=== PATIENT | male | born 1965 | race Caucasian/White ===

== ENCOUNTER → 2018-12-20 13:44 | Outpatient (CLI) | payer OTHER, SELFPAY ==
--- NOTE | 2018-12-20 13:47 | DI.RAD.S_ITS ---
PROCEDURE: XR CHEST 2V INDICATIONS: cough TECHNIQUE: 2 views of the chest were acquired. COMPARISON: None. FINDINGS: Surgical changes and devices: None. Lungs and pleura: No pleural effusions or pneumothorax. Mild bilateral perihilar density. Peribronchial cuffing is present. Mediastinum: Mediastinal contours are normal. Heart size is normal. Bones and chest wall: No suspicious bony abnormalities. Soft tissues appear unremarkable. IMPRESSION: Mild atypical bronchopneumonia. Dictated by: Gabriel Richardson M.D. on 12/20/2018 at 14:13 Approved by: Gabriel Richardson M.D. on 12/20/2018 at 14:14
== END ==
PROVIDERS: PCP Physician Assistant; Visit Provider Physician Assistant
DX: R05 Cough (principal); J18.0 Bronchopneumonia, unspecified organism
CPT/HCPCS: 71046

== ENCOUNTER 2019-07-24 08:30 | Emergency (ER) | payer SELFPAY ==
[2019-07-24 08:33] VITALS: BP 164/82; PULSE 88; RESP 16; TEMP 37.1; O2SAT 94; BMI 30.3
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
[2019-07-24] MEDS: KETOROLAC 60 MG/2 ML VIAL IM (08:51)
[2019-07-24 10:14] VITALS: BP 154/96; PULSE 76; RESP 16; O2SAT 95
== END 2019-07-24 10:15 | disposition home or self-care (01) ==
PROVIDERS: Emergency Provider Emergency Medicine; PCP Family Medicine
DX: M25.561 Pain in right knee (principal); M25.461 Effusion, right knee
CPT/HCPCS: 73562; 96372; 99282; 99283; J1885

== ENCOUNTER 2019-12-05 18:14 | Emergency (ER) | payer OTHER, MEDICAID, SELFPAY ==
[2019-12-05 18:20] VITALS: BP 150/100; PULSE 85; RESP 14; TEMP 36.2; O2SAT 93
[2019-12-05 18:36] LABS: Add Manual Diff / Slide Review NO; Basophils Absolute Auto 0 /uL (0-100); Basophils Percent Auto 0.7 % (0-2); Eosinophils Absolute Auto 0 /uL (0-450); Eosinophils Percent Auto 0.5 % (2-4); Hematocrit 46.1 % (41-53); Hemoglobin 16.1 g/dL (13.5-17.5); Lymphocytes Absolute Auto 1600 /uL (1100-4500); Lymphocytes Percent Auto 36.3 % (25-40); Mean Corpuscular HGB Conc 34.9 % (30-36); Mean Corpuscular Hemoglobin 36.2 PG (26-34); Mean Corpuscular Volume 103.9 fL (80-100); Monocytes Absolute Auto 500 /uL (0-900); Monocytes Percent Auto 10.6 % (3-14); Neutrophils Absolute Auto 2300 /uL (1500-7000); Neutrophils Percent Auto 51.9 % (50-75); Platelet Count 119 X10^3/uL (150-400); Red Blood Cell Count 4.44 X10^6/uL (4.5-5.9); Red Cell Distribution Width 13.5 % (11.6-14.8); White Blood Cell Count 4.5 X10^3/uL (4.5-11.0)
[2019-12-05] MEDS: SODIUM CHLORIDE 0.9% 1,000 ML 1000 ML IV (18:40)
[2019-12-05 18:43] LABS: Prothrombin Time 11.6 SECONDS (10.1-12.7)
[2019-12-05 18:46] LABS: PTT Partial Thromboplastin Tim 32 SECONDS (26.4-36.2)
[2019-12-05 18:47] LABS: Alanine Aminotransferase 103 IU/L (<50); Albumin 4.7 g/dL (3.5-5.0); Albumin Globulin Ratio 1.3 (1.0-2.8); Alkaline Phosphatase 102 U/L (38-126); Aspartate Aminotransferase 127 IU/L (17-59); BUN Creatinine Ratio 7.1 (6-22); Bilirubin Total 0.8 mg/dL (0.2-1.3); Blood Urea Nitrogen 5 mg/dL (9-20); Calcium 9.1 mg/dL (8.4-10.2); Carbon Dioxide 29 mmol/L (22-32); Chloride 100 mmol/L (98-107); Estimated Glomerular Filt Rate > 60.0 mL/min (>60); Globulin 3.7 g/dL (1.7-4.1); Glucose 115 mg/dL (70-100); HEMOLYSIS < 15 (0-50); Lipase 591 U/L (23-300); Potassium 3.7 mmol/L (3.4-5.1); Sodium 141 mmol/L (137-145); Total Protein 8.4 g/dL (6.3-8.2)
[2019-12-05 18:53] LABS: Ethanol (ETOH) 353 mg/dL
[2019-12-05 19:31] VITALS: BP 131/84; PULSE 83; RESP 18; O2SAT 92
--- NOTE | 2019-12-05 19:46 | ED.BACK ---
HPI - Back Pain/Injury General Chief Complaint: Back Pain/Injury Stated Complaint: dont feel right, L butt cheek pain Time Seen by Provider: 12/05/19 18:29 Source: patient Mode of arrival: Ambulatory Limitations: no limitations History of Present Illness HPI Narrative: Patient is a 54-year-old here with multiple medical complaints. He is a known alcoholic. Drinks on a daily basis for the past several months. Has never had any withdrawals from alcohol in the past. His last drink was approximately 20 minutes prior to arrival here in the emergency department. He arrives with family. Initial nursing report states that the patient was here for detox but was also complaining about back pain and urinary symptoms and bowel symptoms. He is also complaining about dental pain. Upon my evaluation he has multiple complaints. He states he thought that he had ?toxic shock syndrome ?secondary to a toothpick that is stuck in his teeth. Has had dental pain and right-sided facial pain for several days/week now. He also had several falls several weeks ago. For about 2 weeks afterwards he had left lower back pain. States that he has had some urinary symptoms and some urinary hesitancy. He states that this has been going on for several ?years? now. He also states that shortly after the fall he had episodes of diarrhea but then seems of been constipated since then. Generally generally overall does not feel well. Related Data Home Medications Medication Instructions Recorded Confirmed ASPIRIN (Aspirin EC) 81 mg PO #0 06/10/11 02/28/19 Ascorbic Acid/Bioflavonoid #0 06/10/11 02/28/19 (#VITAMIN C) Fish Oil (#FISH OIL) #0 06/10/11 02/28/19 [ZINC] #0 06/10/11 02/28/19 Pyridoxine (#VITAMIN B6) 100 mg PO #0 06/28/12 02/28/19 [sleep aide-OTC] #0 04/25/17 02/28/19 milk thistle 150 mg capsule 150 mg PO BID 02/28/19 02/28/19 Previous Rx's Medication Instructions Recorded lisinopril 20 mg tablet 20 mg PO DAILY #30 tab 02/28/19 clindamycin HCl 300 mg PO QID 10 Days #40 cap 12/05/19 Allergies Allergy/AdvReac Type Severity Reaction Status Date / Time Penicillins [PENICILLINS] Allergy Unknown Verified 12/05/19 18:28 Review of Systems Constitutional Constitutional: Denies fatigue, Denies fever(s), Denies frequent falls, Denies headache(s) and Reports poor appetite ENT Ears, Nose, Mouth, and Throat: Reports dental pain, Reports facial pain, Denies headache(s) and Denies tinnitus Cardiovascular Cardiovascular: Denies chest pain and Denies dyspnea Respiratory Respiratory: Denies dyspnea Gastrointestinal Gastrointestinal: Reports abdominal pain, Reports constipation, Denies nausea and Denies vomiting Genitourinary Genitourinary: Denies genital pain, Denies dysuria, Denies urinary frequency, Reports urinary hesitancy and Denies urinary incontinence Musculoskeletal Musculoskeletal: Reports back pain Integumentary/Breasts Skin/Breast: Denies lesions and Denies rash Neurologic Neurologic: Denies behavioral changes, Denies frequent falls and Denies headache(s) Psychiatric Psychiatric: Denies behavioral changes Comments: Alcohol intoxication Endocrine Endocrine: Denies fatigue Hematologic/Lymphatic Hematologic/Lymphatic: Denies easy bleeding and Denies easy bruising Allergic/Immunologic Allergic/Immunologic: Denies urticaria Patient History Medical History Headache (Chronic) Hearing loss (Chronic) Hepatitis C (Acute) Vision disorder (Chronic) Family History (Updated 04/14/19 @ 22:26 by Qian Orr) Father History of heart disease Mother Cancer Social History Smoking Status: Current every day smoker Tobacco: How many years used: 39 alcohol intake: current (approx 21 drinks per week) substance use type: marijuana Smoking Status: Current every day smoker alcohol intake frequency: 3 or more drinks per day Alcohol type: hard liquor Substance Use Type: marijuana Exam Initial Vital Signs Initial Vital Signs: Vital Signs Temperature 97.1 F L 12/05/19 18:20 Pulse Rate 85 12/05/19 18:20 Respiratory Rate 14 12/05/19 18:20 Blood Pressure 150/100 H 12/05/19 18:20 Pulse Oximetry 93 12/05/19 18:20 Const General: cooperative and well developed Nutritional Appearance: average body habitus HENMT Head: normal to inspection and normocephalic Ears: TM's normal bilaterally Nose: external nose normal Teeth and gingiva: gingiva abnormal (Redness to the gingiva the right upper gum.) and poor dentition Throat: posterior oropharynx normal Resp Effort & Inspection: normal respiratory effort Auscultation: clear to auscultation bilaterally Cardio Rate: regular rate Rhythm: regular rhythm GI Inspection: non-distended Palpation: soft Back/Spine/Pelvis Thoracic/Lumbar Spine: paraspinal tenderness (Left lumbar) and No lumbar spinal tenderness Sacroiliac Joints: nontender Skin Lesions: no lesions Rashes: no rashes Neuro General: alert, awake and oriented x3 Cognition: normal cognition Speech: speech normal Motor: muscle tone normal throughout Sensory Exam: no sensory deficits noted Extrem General: normal to inspection and capillary refill normal Psych Appearance: grossly normal and well kempt Scores GCS [place] coma scale eye opening: Spontaneous Liza coma scale verbal response: Orientated Liza coma scale motor response: Obey commands Liza coma scale total score: 15 Course Orders Ordered: ED Orders 12/05/19 18:27 Complete Blood Count AUTO DIFF Stat Comprehensive Metabolic Panel Stat Ethanol (ETOH) Stat Lipase Stat Partial Thromboplastin Time Stat Prothrombin Time INR Stat 12/05/19 18:30 EKG-12 Lead Stat Discontinued Medications Clindamycin HCl (Cleocin) 300 mg PO NOW ONE Stop: 12/05/19 19:47 Last Admin: 12/05/19 19:58 Dose: 300 mg Documented by: NINO Sodium Chloride (Normal Saline 0.9%) 1,000 mls @ 1,000 mls/hr IV BOLUS ONE Stop: 12/05/19 19:28 Last Infusion: 12/05/19 20:55 Dose: 0 mls/hr Documented by: Admin: 12/05/19 18:40 Dose: 1,000 mls/hr Documented by: NINO Vital Signs Vital signs: Vital Signs - 8 hr 12/05/19 18:20 12/05/19 19:31 12/05/19 20:15 Temperature 97.1 F L Pulse Rate 85 83 91 H Respiratory Rate 14 18 18 Blood Pressure 150/100 H Blood Pressure [Left Arm] 131/84 137/79 Pulse Oximetry 93 92 12/05/19 20:56 Temperature Pulse Rate 63 Respiratory Rate 14 Blood Pressure Blood Pressure [Left Arm] 138/74 Pulse Oximetry 98 MDM - Back Pain/Injury Lab Data Attestation: I reviewed the patient's lab results. Result diagrams: 12/05/19 18:27 12/05/19 18:27 Labs: Lab Results 12/05/19 12/05/19 12/05/19 Range/Units 18:27 18:27 18:27 WBC 4.5 (4.5-11.0) X10^3/uL RBC 4.44 L (4.5-5.9) X10^6/uL Hgb 16.1 (13.5-17.5) g/dL Hct 46.1 (41-53) % MCV 103.9 H (80-100) fL MCH 36.2 H (26-34) PG MCHC 34.9 (30-36) % RDW 13.5 (11.6-14.8) % Plt Count 119 L (150-400) X10^3/uL Neut % (Auto) 51.9 (50-75) % Lymph % (Auto) 36.3 (25-40) % [place] % (Auto) 10.6 (3-14) % Eos % (Auto) 0.5 L (2-4) % Baso % (Auto) 0.7 (0-2) % Neut # (Auto) 2300 (8255-1280) /uL Lymph # (Auto) 1600 (4419-5155) /uL [place] # (Auto) 500 (0-900) /uL Eos # (Auto) 0 (0-450) /uL Baso # (Auto) 0 (0-100) /uL PT 11.6 (10.1-12.7) SECONDS INR 1.0 (0.9-1.3) APTT 32 (26.4-36.2) SECONDS Sodium 141 (137-145) mmol/L Potassium 3.7 (3.4-5.1) mmol/L Chloride 100 (98-107) mmol/L Carbon Dioxide 29 (22-32) mmol/L BUN 5 L (9-20) mg/dL Creatinine 0.70 (0.66-1.25) mg/dL Estimated GFR > 60.0 (>60) mL/min BUN/Creatinine Ratio 7.1 (6-22) Glucose 115 H (70-100) mg/dL Calcium 9.1 (8.4-10.2) mg/dL Total Bilirubin 0.8 (0.2-1.3) mg/dL AST 127 H (17-59) IU/L ALT 103 H (<50) IU/L Alkaline Phosphatase 102 (38-126) U/L Total Protein 8.4 H (6.3-8.2) g/dL Albumin 4.7 (3.5-5.0) g/dL Globulin 3.7 (1.7-4.1) g/dL Albumin/Globulin Ratio 1.3 (1.0-2.8) Lipase 591 H (23-300) U/L Ethyl Alcohol ( - 10) mg/dL 12/05/19 Range/Units 18:27 WBC (4.5-11.0) X10^3/uL RBC (4.5-5.9) X10^6/uL Hgb (13.5-17.5) g/dL Hct (41-53) % MCV (80-100) fL MCH (26-34) PG MCHC (30-36) % RDW (11.6-14.8) % Plt Count (150-400) X10^3/uL Neut % (Auto) (50-75) % Lymph % (Auto) (25-40) % [place] % (Auto) (3-14) % Eos % (Auto) (2-4) % Baso % (Auto) (0-2) % Neut # (Auto) (9148-0954) /uL Lymph # (Auto) (6856-0697) /uL [place] # (Auto) (0-900) /uL Eos # (Auto) (0-450) /uL Baso # (Auto) (0-100) /uL PT (10.1-12.7) SECONDS INR (0.9-1.3) APTT (26.4-36.2) SECONDS Sodium (137-145) mmol/L Potassium (3.4-5.1) mmol/L Chloride (98-107) mmol/L Carbon Dioxide (22-32) mmol/L BUN (9-20) mg/dL Creatinine (0.66-1.25) mg/dL Estimated GFR (>60) mL/min BUN/Creatinine Ratio (6-22) Glucose (70-100) mg/dL Calcium (8.4-10.2) mg/dL Total Bilirubin (0.2-1.3) mg/dL AST (17-59) IU/L ALT (<50) IU/L Alkaline Phosphatase (38-126) U/L Total Protein (6.3-8.2) g/dL Albumin (3.5-5.0) g/dL Globulin (1.7-4.1) g/dL Albumin/Globulin Ratio (1.0-2.8) Lipase (23-300) U/L Ethyl Alcohol 353 H ( - 10) mg/dL Urine Dip Bedside Urine Glucose Negative Bedside Urine Bilirubin - Negative Bedside Urine Ketone - Negative Bedside Urine Occult Blood - Negative Bedside Urine Protein - Negative Bedside Urine Urobilinogen - Negative Bedside Urine Nitrite - Negative Bedside Urine Leukocytes - Negative Esterase MDM Narrative Medical decision making narrative: Patient's labs do show an elevated LFTs but I suspect this is secondary to his alcohol abuse. His alcohol level was also elevated. Lipase was slightly elevated but his history and physical is not consistent with pancreatitis. No fevers. He does have left sided lumbar muscular tenderness. Low suspicion for cauda equina. He does have redness to the gingiva in the gums the right upper gum. There's no foreign body noted in this area. No drainable abscess. He was given a dose of antibiotics here in the emergency department and was sent home with a prescription for antibiotics. Had a long discussion with him and his sister at bedside regarding his alcohol use. I did offer treatment. Reported by nursing that he was initially agreeable to treatment then later stated that he was not ready for this. He was informed that he cannot drive. He was informed that he should see a dentist regarding his dental issues. We did discuss return precautions and follow-up instructions. No further workup required here in the emergency department. Patient and his sister expressed understanding and agreement. Discharge Plan Departure Patient Disposition: Home Clinical Impression: Dental infection Strain of lumbar region Qualifiers: Encounter type: initial encounter Qualified Code(s): S39.012A - Strain of muscle, fascia and tendon of lower back, initial encounter Alcohol intoxication Qualifiers: Complication of substance-induced condition: uncomplicated Qualified Code(s): F10.920 - Alcohol use, unspecified with intoxication, uncomplicated Discharge Date/Time: 12/05/19 21:03 Instructions: Alcohol Use Disorder Activity Restrictions/Additional Instructions: Continue all of your medications as directed. Recommend you contact your primary provider for a follow-up. If you do not have a primary provider you can contact the health human resources analyst here at the hospital at [phone]. Take the antibiotics as directed. No driving for the next 24 hours or in the future if you drink alcohol. Return to the emergency department for any new or worsening symptoms Prescriptions: New clindamycin HCl 300 mg capsule 300 mg PO QID 10 Days Qty: 40 RF: 0 No Action milk thistle 150 mg capsule 150 mg PO BID RF: 0 lisinopril 20 mg tablet 20 mg PO DAILY Qty: 30 RF: 1 Ascorbic Acid/Bioflavonoid (#VITAMIN C) Qty: 0 RF: 0 Fish Oil (#FISH OIL) Qty: 0 RF: 0 [ZINC] Qty: 0 RF: 0 ASPIRIN (Aspirin EC) 81 mg PO Qty: 0 RF: 0 Pyridoxine (#VITAMIN B6) 100 mg PO Qty: 0 RF: 0 [sleep aide-OTC] Qty: 0 RF: 0 Referrals: Megha Bagley DO [Primary Care Provider] -
[2019-12-05] MEDS: CLINDAMYCIN 150 MG CAPSULE 300 MG PO (19:58)
[2019-12-05 20:15] VITALS: BP 137/79; PULSE 91; RESP 18
[2019-12-05 20:56] VITALS: BP 138/74; PULSE 63; RESP 14; O2SAT 98
== END 2019-12-05 21:03 | disposition home or self-care (01) ==
PROVIDERS: Emergency Provider Emergency Medicine; PCP Family Medicine
DX: S39.012A Strain of muscle, fascia and tendon of lower back, initial encounter (principal); F10.920 Alcohol use, unspecified with intoxication, uncomplicated; K04.7 Periapical abscess without sinus; W19.XXXA Unspecified fall, initial encounter
CPT/HCPCS: 36415; 80053; 80320; 81003; 83690; 85025; 85610; 85730; 93005; 96360; 96361; 99284

== ENCOUNTER 2019-12-11 12:28 | Emergency (ER) | payer OTHER, MEDICAID, SELFPAY ==
[2019-12-11] VITALS (9 sets, daily range): BP systolic 133–158; BP diastolic 64–91; PULSE 81–99; RESP 14–19; TEMP 36.5; O2SAT 94–98; BMI 29.0
--- NOTE | 2019-12-11 12:45 | DI.CT.S_ITS ---
PROCEDURE: CT ANGIO CHEST PE PROTOCOL INDICATIONS: Hemoptysis TECHNIQUE: After the administration of intravenous contrast, 2 mm thick sections acquired from the pulmonary apices to the posterior costophrenic angles. 3-dimensional maximum intensity projection (MIP) coronal and sagittal reformats were then acquired through the thorax. For radiation dose reduction, the following was used: automated exposure control, adjustment of mA and/or kV according to patient size. COMPARISON: [facility], CT, CT ABDOMEN PELVIS W CON, 12/11/2019, 12:48. [facility], CR, XR CHEST 2V, 12/20/2018, 13:47. FINDINGS: Image quality: Excellent. Pulmonary arteries: Pulmonary arteries are normal in size, and demonstrate no intraluminal filling defects to suggest central pulmonary embolism. Lungs and pleura: Lungs are clear. No pleural effusions or pneumothorax. Central and peripheral airways are patent. Mediastinum: Heart size is normal, without pericardial effusion. No mediastinal or hilar adenopathy. Thoracic aorta is normal in caliber and enhancement. Esophagus is normal in caliber. There is a small hiatal hernia. There is concentric thickening of the distal esophagus. Bones and chest wall: No suspicious bony lesions. Ribs and thoracic spine appear intact throughout. Thyroid gland is normal. No axillary or supraclavicular adenopathy. Abdomen: Nodular contour of liver consistent with cirrhosis. Severe hepatic steatosis. Large venous collaterals are seen in the left upper abdomen. IMPRESSION: 1. No findings to suggest pulmonary embolism. 2. Small hiatal hernia. There is concentric thickening of the distal esophagus. Esophageal varices are present. 3. Cirrhosis and portal hypertension. The result was discussed with Dr. Marie. Dictated by: Asher Robles M.D. on 12/11/2019 at 13:36 Approved by: Asher Roblse M.D. on 12/11/2019 at 13:44
--- NOTE | 2019-12-11 12:51 | ED_ITS ---
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 He is sent from his PCP office today for hematemesis. Although there is question of perhaps hematemesis. Patient says that his he has had a cough ongoing for about a week or so. Any started having some hemoptysis last night. It has only been speckled no large amounts. And again he coughed at the doctor's office. He denies any chest discomfort or shortness of breath. He also states that he is having some epigastric discomfort along with black stools. MD complaint: abdominal pain Related Data Previous Rx's Medication Instructions Recorded clindamycin HCl 300 mg PO QID 10 Days #40 cap 12/05/19 Allergies Allergy/AdvReac Type Severity Reaction Status Date / Time Penicillins [PENICILLINS] Allergy Unknown Verified 12/11/19 12:47 Review of Systems Review of Systems ROS Unobtainable: All systems reviewed & are unremarkable except as noted in HPI and below Constitutional Constitutional: Denies chills, Denies fever(s), Denies lethargy and Denies weakness Eyes Eyes: Denies change in vision, Denies eye discharge, Denies irritation and Denies loss of vision ENT Ears, Nose, Mouth, and Throat: Denies change in voice, Denies neck pain and Denies sore throat Cardiovascular Cardiovascular: Denies chest pain, Denies irregular heart rhythm, Denies lightheadedness, Denies palpitations and Denies orthopnea Respiratory Respiratory: Reports as per HPI and Reports hemoptysis Gastrointestinal Gastrointestinal: Reports abdominal pain (mild epigastric), Reports change in bowel habits (some black bowels), Denies diarrhea, Denies nausea and Denies vomiting Genitourinary Genitourinary: Denies hematuria, Denies flank pain, Denies urinary incontinence and Denies urinary urgency Musculoskeletal Musculoskeletal: Denies neck pain Integumentary/Breasts Skin/Breast: Denies pruritus, Denies erythema, Denies rash and Denies wounds Neurologic Neurologic: Denies loss of vision and Denies weakness Endocrine Endocrine: Denies palpitations Patient History Medical History Headache (Chronic) Hearing loss (Chronic) Hepatitis C (Acute) Vision disorder (Chronic) Surgical History Hiatal hernia (Resolved) Periumbilical hernia (Resolved) Family History Father History of heart disease Mother Cancer Social History Smoking Status: Current every day smoker Tobacco: How many years used: 39 alcohol intake: current (approx 21 drinks per week) substance use type: marijuana Smoking Status: Current every day smoker alcohol intake frequency: 3 or more drinks per day Alcohol type: beer and hard liquor Substance Use Type: marijuana Exam Initial Vital Signs Initial Vital Signs: Vital Signs Temperature 97.7 F 12/11/19 12:28 Pulse Rate 83 12/11/19 12:28 Respiratory Rate 18 12/11/19 12:28 Blood Pressure 153/90 H 12/11/19 12:28 Pulse Oximetry 96 12/11/19 12:28 GENERAL: Alert multiple tattoos well-appearing male and in no acute distress. HEENT: Head atraumatic,EOMI, pupils reactive, face symmetric, moist mucous membranes CARDIOVASCULAR: Regular rate and rhythm without murmurs, rubs or gallops. RESPIRATORY: Breath sounds equal bilaterally, no wheezes rales or rhonchi. ABDOMEN: Soft, nontender. Normoactive bowel sounds all 4 quadrants. No guarding or rebound. RECTAL: No stool EXTREMITIES: Normal range of motion, no clubbing or edema. Neurovascularly intact NEUROLOGICAL: Alert and oriented x4.Normal gait and speech. Cranial nerves II through XII grossly intact. SKIN: Warm, dry, no laceration, no petechiae, no rashes or lesions. Course Orders Ordered: ED Orders 12/11/19 12:40 Acetaminophen Stat Complete Blood Count AUTO DIFF Stat Comprehensive Metabolic Panel Stat Ethanol (ETOH) Stat Lipase Stat Partial Thromboplastin Time Stat Prothrombin Time INR Stat Troponin & CK Cardiac Panel Stat Type and Screen Stat 12/11/19 12:45 CT angio chest PE protocol Stat 12/11/19 12:47 EKG-12 Lead Stat 12/11/19 13:14 CT abdomen pelvis w con Stat 12/11/19 13:15 Urine Drug Screen, Rapid Stat Pantoprazole Sodium 80 mg/ (Sodium Chloride) 100 mls @ 10 mls/hr IV CONT ILYA Last Admin: 12/11/19 14:47 Dose: 8 mg/hr, 10 mls/hr Documented by: PANCHO Octreotide Acetate 500 mcg/ (Sodium Chloride) 101 mls @ 10.1 mls/hr IV CONT ILYA; Protocol Last Admin: 12/11/19 14:48 Dose: 50 mcg/hr, 10.1 mls/hr Documented by: PANCHO Discontinued Medications Lorazepam (Ativan) 2 mg IV NOW ONE Stop: 12/11/19 17:03 Last Admin: 12/11/19 17:26 Dose: 2 mg Documented by: MARKY Octreotide Acetate (Sandostatin) 50 mcg IV NOW ONE Stop: 12/11/19 13:41 Last Admin: 12/11/19 14:14 Dose: 50 mcg Documented by: PANCHO Ondansetron HCl (Zofran) 4 mg IV NOW ONE Stop: 12/11/19 14:25 Last Admin: 12/11/19 14:26 Dose: 4 mg Documented by: PANCHO Pantoprazole Sodium (Protonix) 40 mg IV NOW ONE Stop: 12/11/19 13:41 Last Admin: 12/11/19 14:13 Dose: 40 mg Documented by: PANCHO Vital Signs Vital signs: Vital Signs - 8 hr 12/11/19 12:28 12/11/19 13:00 12/11/19 13:30 Temperature 97.7 F Pulse Rate 83 81 83 Respiratory Rate 18 19 16 Blood Pressure 153/90 H Blood Pressure [Left Arm] 147/89 H 149/90 H Pulse Oximetry 96 97 96 12/11/19 14:15 12/11/19 14:34 12/11/19 15:06 Temperature Pulse Rate 83 82 94 H Respiratory Rate 15 18 18 Blood Pressure Blood Pressure [Left Arm] 133/71 133/91 H 139/77 Pulse Oximetry 97 96 98 12/11/19 15:33 12/11/19 17:00 12/11/19 17:30 Temperature Pulse Rate 99 H 92 H 93 H Respiratory Rate 14 18 19 Blood Pressure Blood Pressure [Left Arm] 137/64 141/77 H 158/89 H Pulse Oximetry 97 94 94 MDM - Abdominal Pain Lab Data Attestation: I reviewed the patient's lab results. Result diagrams: 12/11/19 12:40 12/11/19 12:40 Labs: Lab Results 12/11/19 12/11/19 12/11/19 Range/Units 12:40 12:40 12:40 WBC 3.5 L (4.5-11.0) X10^3/uL RBC 4.26 L (4.5-5.9) X10^6/uL Hgb 15.2 (13.5-17.5) g/dL Hct 43.8 (41-53) % MCV 102.9 H (80-100) fL MCH 35.6 H (26-34) PG MCHC 34.6 (30-36) % RDW 13.7 (11.6-14.8) % Plt Count 92 L (150-400) X10^3/uL Neut % (Auto) 64.2 (50-75) % Lymph % (Auto) 25.6 (25-40) % [place] % (Auto) 9.5 (3-14) % Eos % (Auto) 0.1 L (2-4) % Baso % (Auto) 0.6 (0-2) % Neut # (Auto) 2300 (7603-6459) /uL Lymph # (Auto) 900 L (1382-1991) /uL [place] # (Auto) 300 (0-900) /uL Eos # (Auto) 0 (0-450) /uL Baso # (Auto) 0 (0-100) /uL PT 12.1 (10.1-12.7) SECONDS INR 1.0 (0.9-1.3) APTT 32 (26.4-36.2) SECONDS Sodium 139 (137-145) mmol/L Potassium 3.4 (3.4-5.1) mmol/L Chloride 100 (98-107) mmol/L Carbon Dioxide 26 (22-32) mmol/L BUN 5 L (9-20) mg/dL Creatinine 0.70 (0.66-1.25) mg/dL Estimated GFR > 60.0 (>60) mL/min BUN/Creatinine Ratio 7.1 (6-22) Glucose 113 H (70-100) mg/dL Calcium 9.3 (8.4-10.2) mg/dL Total Bilirubin 1.0 (0.2-1.3) mg/dL AST 253 H (17-59) IU/L ALT 154 H (<50) IU/L Alkaline Phosphatase 110 (38-126) U/L Total Creatine Kinase 161 (55-170) U/L CK-MB (CK-2) 2.10 (<2.37) ng/mL CK-MB (CK-2) Rel Index 1.3 L (1.5-5.0) % Troponin I 0.031 (0.01-0.034) ng/mL Total Protein 8.5 H (6.3-8.2) g/dL Albumin 4.6 (3.5-5.0) g/dL Globulin 3.9 (1.7-4.1) g/dL Albumin/Globulin Ratio 1.2 (1.0-2.8) Lipase 608 H (23-300) U/L U Opiates 300ng/mL cut (Negative) Ur Oxycodone Screen (Negative) Urine Methadone Screen (Negative) Acetaminophen (10-30) ug/mL Ur Barbiturates Screen (Negative) U Tricyclic Antidepress (Negative) Ur Phencyclidine Scrn (Negative) Ur Amphetamines Screen (Negative) U Methamphetamines Scrn (Negative) Ur MDMA Scrn (Ecstasy) (Negative) U Benzodiazepines Scrn (Negative) Urine Cocaine Screen (Negative) U Marijuana (THC) Screen (Negative) Ethyl Alcohol ( - 10) mg/dL Blood Type Antibody Screen 12/11/19 12/11/19 12/11/19 Range/Units 12:40 12:40 12:54 WBC (4.5-11.0) X10^3/uL RBC (4.5-5.9) X10^6/uL Hgb (13.5-17.5) g/dL Hct (41-53) % MCV (80-100) fL MCH (26-34) PG MCHC (30-36) % RDW (11.6-14.8) % Plt Count (150-400) X10^3/uL Neut % (Auto) (50-75) % Lymph % (Auto) (25-40) % [place] % (Auto) (3-14) % Eos % (Auto) (2-4) % Baso % (Auto) (0-2) % Neut # (Auto) (2260-9907) /uL Lymph # (Auto) (9556-5577) /uL [place] # (Auto) (0-900) /uL Eos # (Auto) (0-450) /uL Baso # (Auto) (0-100) /uL PT (10.1-12.7) SECONDS INR (0.9-1.3) APTT (26.4-36.2) SECONDS Sodium (137-145) mmol/L Potassium (3.4-5.1) mmol/L Chloride (98-107) mmol/L Carbon Dioxide (22-32) mmol/L BUN (9-20) mg/dL Creatinine (0.66-1.25) mg/dL Estimated GFR (>60) mL/min BUN/Creatinine Ratio (6-22) Glucose (70-100) mg/dL Calcium (8.4-10.2) mg/dL Total Bilirubin (0.2-1.3) mg/dL AST (17-59) IU/L ALT (<50) IU/L Alkaline Phosphatase (38-126) U/L Total Creatine Kinase Cancelled (55-170) U/L CK-MB (CK-2) Cancelled (<2.37) ng/mL CK-MB (CK-2) Rel Index Cancelled (1.5-5.0) % Troponin I Cancelled (0.01-0.034) ng/mL Total Protein (6.3-8.2) g/dL Albumin (3.5-5.0) g/dL Globulin (1.7-4.1) g/dL Albumin/Globulin Ratio (1.0-2.8) Lipase (23-300) U/L U Opiates 300ng/mL cut (Negative) Ur Oxycodone Screen (Negative) Urine Methadone Screen (Negative) Acetaminophen < 10 L (10-30) ug/mL Ur Barbiturates Screen (Negative) U Tricyclic Antidepress (Negative) Ur Phencyclidine Scrn (Negative) Ur Amphetamines Screen (Negative) U Methamphetamines Scrn (Negative) Ur MDMA Scrn (Ecstasy) (Negative) U Benzodiazepines Scrn (Negative) Urine Cocaine Screen (Negative) U Marijuana (THC) Screen (Negative) Ethyl Alcohol 266 H ( - 10) mg/dL Blood Type A Positive Antibody Screen Negative 12/11/19 Range/Units 13:15 WBC (4.5-11.0) X10^3/uL RBC (4.5-5.9) X10^6/uL Hgb (13.5-17.5) g/dL Hct (41-53) % MCV (80-100) fL MCH (26-34) PG MCHC (30-36) % RDW (11.6-14.8) % Plt Count (150-400) X10^3/uL Neut % (Auto) (50-75) % Lymph % (Auto) (25-40) % [place] % (Auto) (3-14) % Eos % (Auto) (2-4) % Baso % (Auto) (0-2) % Neut # (Auto) (4659-9731) /uL Lymph # (Auto) (9951-8749) /uL [place] # (Auto) (0-900) /uL Eos # (Auto) (0-450) /uL Baso # (Auto) (0-100) /uL PT (10.1-12.7) SECONDS INR (0.9-1.3) APTT (26.4-36.2) SECONDS Sodium (137-145) mmol/L Potassium (3.4-5.1) mmol/L Chloride (98-107) mmol/L Carbon Dioxide (22-32) mmol/L BUN (9-20) mg/dL Creatinine (0.66-1.25) mg/dL Estimated GFR (>60) mL/min BUN/Creatinine Ratio (6-22) Glucose (70-100) mg/dL Calcium (8.4-10.2) mg/dL Total Bilirubin (0.2-1.3) mg/dL AST (17-59) IU/L ALT (<50) IU/L Alkaline Phosphatase (38-126) U/L Total Creatine Kinase (55-170) U/L CK-MB (CK-2) (<2.37) ng/mL CK-MB (CK-2) Rel Index (1.5-5.0) % Troponin I (0.01-0.034) ng/mL Total Protein (6.3-8.2) g/dL Albumin (3.5-5.0) g/dL Globulin (1.7-4.1) g/dL Albumin/Globulin Ratio (1.0-2.8) Lipase (23-300) U/L U Opiates 300ng/mL cut Negative (Negative) Ur Oxycodone Screen Positive H (Negative) Urine Methadone Screen Negative (Negative) Acetaminophen (10-30) ug/mL Ur Barbiturates Screen Negative (Negative) U Tricyclic Antidepress Negative (Negative) Ur Phencyclidine Scrn Negative (Negative) Ur Amphetamines Screen Negative (Negative) U Methamphetamines Scrn Negative (Negative) Ur MDMA Scrn (Ecstasy) Negative (Negative) U Benzodiazepines Scrn Negative (Negative) Urine Cocaine Screen Negative (Negative) U Marijuana (THC) Screen Positive H (Negative) Ethyl Alcohol ( - 10) mg/dL Blood Type Antibody Screen Imaging Data CT scan - chest: Radiologist's Impression: PROCEDURE: CT ANGIO CHEST PE PROTOCOL INDICATIONS: Hemoptysis TECHNIQUE: After the administration of intravenous contrast, 2 mm thick sections acquired from the pulmonary apices to the posterior costophrenic angles. 3-dimensional maximum intensity projection (MIP) coronal and sagittal reformats were then acquired through the thorax. For radiation dose reduction, the following was used: automated exposure control, adjustment of mA and/or kV according to patient size. COMPARISON: [facility], CT, CT ABDOMEN PELVIS W CON, 12/11/2019, 12:48. [facility], CR, XR CHEST 2V, 12/20/2018, 13:47. FINDINGS: Image quality: Excellent. Pulmonary arteries: Pulmonary arteries are normal in size, and demonstrate no intraluminal filling defects to suggest central pulmonary embolism. Lungs and pleura: Lungs are clear. No pleural effusions or pneumothorax. Central and peripheral airways are patent. Mediastinum: Heart size is normal, without pericardial effusion. No mediastinal or hilar adenopathy. Thoracic aorta is normal in caliber and enhancement. Esophagus is normal in caliber. There is a small hiatal hernia. There is concentric thickening of the distal esophagus. Bones and chest wall: No suspicious bony lesions. Ribs and thoracic spine appear intact throughout. Thyroid gland is normal. No axillary or supraclavicular adenopathy. Abdomen: Nodular contour of liver consistent with cirrhosis. Severe hepatic steatosis. Large venous collaterals are seen in the left upper abdomen. IMPRESSION: 1. No findings to suggest pulmonary embolism. 2. Small hiatal hernia. There is concentric thickening of the distal esophagus. Esophageal varices are present. 3. Cirrhosis and portal hypertension. The result was discussed with Dr. Marie. Dictated by: Asher Robles M.D. on 12/11/2019 at 13:36 CT scan - abdomen/pelvis: Radiologist's Impression: PROCEDURE: CT ABDOMEN PELVIS W CON INDICATIONS: epigastric pain TECHNIQUE: After the administration of intravenous contrast, 5 mm thick sections acquired from the diaphragm to the symphysis. 5 mm coronal and sagittal reformats were acquired. For radiation dose reduction, the following was used: automated exposure control, adjustment of mA and/or kV according to patient size. COMPARISON: [facility], CT, ABDOMEN WITH CONTRAST, 10/14/2010, 10:15. [facility], CT, CT ANGIO CHEST PE PROTOCOL, 12/11/2019, 12:48. FINDINGS: Image quality: Excellent. ABDOMEN: Lung bases: Lung bases are clear. Heart size is normal. There is a small hiatal hernia. There is esophageal varices. Solid organs: Severe hepatic steatosis. Liver demonstrates nodular contour suggesting cirrhosis. There is a cluster of calcified densities in the anterior segment right hepatic lobe, unchanged. Liver is normal in size. Gallbladder is mildly distended and may contain gallstones.. Biliary system is non dilated. Pancreas enhances normally. Spleen is normal in size and enhancement. No adrenal nodules. Horseshoe kidney. Kidneys demonstrate normal size and enhancement, without hydronephrosis. Peritoneum and bowel: Stomach is distended and filled with fluid. Bowel loops demonstrate normal wall thickness and caliber. No free fluid or air. Nodes and vessels: There is retroperitoneal adenopathy. For example, an enlarged periportal/peripancreatic lymph node measures 1.6 x 2.2 cm. There is a 1.3 x 2.1 cm left para-aortic lymph node. Aorta is normal in size. Inferior vena cava is dilated. There is also dilation of left renal and numerous enlarged venous collaterals in the left upper abdomen. There is a recannulized umbilical vein. Portal vein is enlarged. Miscellaneous: No ventral hernias. PELVIS: Genitourinary: Bladder wall thickness is normal. Miscellaneous: No inguinal hernias or adenopathy. Bones: No suspicious bony lesions. No vertebral body compression fractures. Scoliosis and severe degenerative changes in lumbar spine. IMPRESSION: 1. Cirrhotic liver superimposed on severe hepatic steatosis. 2. There are enlarged venous collaterals in the left upper abdomen, enlarged portal vein and inferior vena cava, recannulized umbilical vein and esophageal varices, consistent with portal hypertension. 3. Small hernia. 4. Mild retroperitoneal lymphadenopathy. This finding is nonspecific and may be secondary to infectious, inflammatory or neoplastic etiology. Recommend clinical correlation and follow up. 5. Horseshoe kidney. Dictated by: Asher Robles M.D. on 12/11/2019 at 13:20 ECG Data Attestation: I personally reviewed and interpreted this ECG as follows: Prior ECG tracings: not available for review Interpretation: Normal sinus rhythm rate 94 p.r. interval 172 QRS [address] elevation or depression no priors to compare MDM Narrative Medical decision making narrative: The patient is found to have varices on CT with likely portal hypertension, I suspect that he has had small amounts of variceal bleeding over the past day or so. He is hemodynamically stable he has not had any further episodes of hematemesis in the emergency department. Patient will need higher level of care due to varices I've spoken to hospitalist at [place] Dr. cutler who graciously accepts patient Critical Care Time Critical Care Time Critical Care Time: Yes Total Critical Care Time: 30 Attestation: The high probability of a clinically significant, sudden or life threatening deterioration of the [cardiovascular] system(s) required my full and direct attention, intervention and personal management. The aggregate critical care time was 30 minutes. This time is in addition to time spent performing reported procedures but includes the following: [x] Data Review and interpretation [x] Patient assessment and monitoring of vital signs [x] Documentation [x] Medication orders and management Discharge Plan Departure Patient Disposition: [facility] acute hospital Clinical Impression: Acute GI bleeding Prescriptions: No Action clindamycin HCl 300 mg capsule 300 mg PO QID 10 Days Qty: 40 RF: 0 Referrals: Katie Keith MD [Primary Care Provider] -
--- NOTE | 2019-12-11 12:56 | PC.NURSE ---
provider performed rectal exam to check for blood, no stool in rectum.
[2019-12-11 12:57] LABS: Add Manual Diff / Slide Review NO; Basophils Absolute Auto 0 /uL (0-100); Basophils Percent Auto 0.6 % (0-2); Eosinophils Absolute Auto 0 /uL (0-450); Eosinophils Percent Auto 0.1 % (2-4); Hematocrit 43.8 % (41-53); Hemoglobin 15.2 g/dL (13.5-17.5); Lymphocytes Absolute Auto 900 /uL (1100-4500); Lymphocytes Percent Auto 25.6 % (25-40); Mean Corpuscular HGB Conc 34.6 % (30-36); Mean Corpuscular Hemoglobin 35.6 PG (26-34); Mean Corpuscular Volume 102.9 fL (80-100); Monocytes Absolute Auto 300 /uL (0-900); Monocytes Percent Auto 9.5 % (3-14); Neutrophils Absolute Auto 2300 /uL (1500-7000); Neutrophils Percent Auto 64.2 % (50-75); Platelet Count 92 X10^3/uL (150-400); Prothrombin Time 12.1 SECONDS (10.1-12.7); Red Blood Cell Count 4.26 X10^6/uL (4.5-5.9); Red Cell Distribution Width 13.7 % (11.6-14.8); White Blood Cell Count 3.5 X10^3/uL (4.5-11.0)
[2019-12-11 13:00] LABS: PTT Partial Thromboplastin Tim 32 SECONDS (26.4-36.2)
[2019-12-11 13:02] LABS: Alanine Aminotransferase 154 IU/L (<50); Albumin 4.6 g/dL (3.5-5.0); Albumin Globulin Ratio 1.2 (1.0-2.8); Alkaline Phosphatase 110 U/L (38-126); Aspartate Aminotransferase 253 IU/L (17-59); BUN Creatinine Ratio 7.1 (6-22); Blood Urea Nitrogen 5 mg/dL (9-20); Calcium 9.3 mg/dL (8.4-10.2); Carbon Dioxide 26 mmol/L (22-32); Chloride 100 mmol/L (98-107); Estimated Glomerular Filt Rate > 60.0 mL/min (>60); Globulin 3.9 g/dL (1.7-4.1); Glucose 113 mg/dL (70-100); HEMOLYSIS < 15 (0-50); Lipase 608 U/L (23-300); Potassium 3.4 mmol/L (3.4-5.1); Sodium 139 mmol/L (137-145); Total Protein 8.5 g/dL (6.3-8.2)
[2019-12-11 13:10] LABS: Creatine Kinase 161 U/L (55-170)
--- NOTE | 2019-12-11 13:14 | DI.CT.S_ITS ---
PROCEDURE: CT ABDOMEN PELVIS W CON INDICATIONS: epigastric pain TECHNIQUE: After the administration of intravenous contrast, 5 mm thick sections acquired from the diaphragm to the symphysis. 5 mm coronal and sagittal reformats were acquired. For radiation dose reduction, the following was used: automated exposure control, adjustment of mA and/or kV according to patient size. COMPARISON: [facility], CT, ABDOMEN WITH CONTRAST, 10/14/2010, 10:15. [facility], CT, CT ANGIO CHEST PE PROTOCOL, 12/11/2019, 12:48. FINDINGS: Image quality: Excellent. ABDOMEN: Lung bases: Lung bases are clear. Heart size is normal. There is a small hiatal hernia. There is esophageal varices. Solid organs: Severe hepatic steatosis. Liver demonstrates nodular contour suggesting cirrhosis. There is a cluster of calcified densities in the anterior segment right hepatic lobe, unchanged. Liver is normal in size. Gallbladder is mildly distended and may contain gallstones.. Biliary system is non dilated. Pancreas enhances normally. Spleen is normal in size and enhancement. No adrenal nodules. Horseshoe kidney. Kidneys demonstrate normal size and enhancement, without hydronephrosis. Peritoneum and bowel: Stomach is distended and filled with fluid. Bowel loops demonstrate normal wall thickness and caliber. No free fluid or air. Nodes and vessels: There is retroperitoneal adenopathy. For example, an enlarged periportal/peripancreatic lymph node measures 1.6 x 2.2 cm. There is a 1.3 x 2.1 cm left para-aortic lymph node. Aorta is normal in size. Inferior vena cava is dilated. There is also dilation of left renal and numerous enlarged venous collaterals in the left upper abdomen. There is a recannulized umbilical vein. Portal vein is enlarged. Miscellaneous: No ventral hernias. PELVIS: Genitourinary: Bladder wall thickness is normal. Miscellaneous: No inguinal hernias or adenopathy. Bones: No suspicious bony lesions. No vertebral body compression fractures. Scoliosis and severe degenerative changes in lumbar spine. IMPRESSION: 1. Cirrhotic liver superimposed on severe hepatic steatosis. 2. There are enlarged venous collaterals in the left upper abdomen, enlarged portal vein and inferior vena cava, recannulized umbilical vein and esophageal varices, consistent with portal hypertension. 3. Small hernia. 4. Mild retroperitoneal lymphadenopathy. This finding is nonspecific and may be secondary to infectious, inflammatory or neoplastic etiology. Recommend clinical correlation and follow up. 5. Horseshoe kidney. Dictated by: Asher Robles M.D. on 12/11/2019 at 13:20 Approved by: Asher Robles M.D. on 12/11/2019 at 13:36
[2019-12-11 13:15] LABS: Troponin I 0.031 ng/mL (0.01-0.034)
[2019-12-11 13:18] LABS: CKMB % Relative Index 1.3 % (1.5-5.0)
[2019-12-11 13:19] LABS: Acetaminophen < 10 ug/mL (10-30); Ethanol (ETOH) 266 mg/dL
[2019-12-11 13:29] LABS: UR Morphine/Opiate cutoff 300 Negative (Negative); Ur Creatinine Normal (Normal); Ur Specific Gravity Normal (Normal); Urine Amphetamines Negative (Negative); Urine Barbiturates Negative (Negative); Urine Benzodiazepines Negative (Negative); Urine Cocaine Negative (Negative); Urine MDMA Negative (Negative); Urine Methadone Negative (Negative); Urine Methamphetamines Negative (Negative); Urine Oxycodone Positive (Negative); Urine Phencyclidine Negative (Negative); Urine Tetrahydrocannabinol Positive (Negative); Urine Tricyclic Antidepressant Negative (Negative); Urine pH Normal (Normal)
[2019-12-11] MEDS: PANTOPRAZOLE 40 MG VIAL IV (14:13)
[2019-12-11] MEDS: OCTREOTIDE 100 MCG/ML VIAL 50 MCG IV (14:14)
[2019-12-11] MEDS: ONDANSETRON 4 MG/2 ML INJ IV (14:26)
[2019-12-11] MEDS: PANTOPRAZOLE 80 MG in SODIUM CHLORIDE 0.9% 100 ML 10 ML IV (14:47)
[2019-12-11] MEDS: OCTREOTIDE 500 MCG in SODIUM CHLORIDE 0.9% 100 ML 10.1 ML IV (14:48)
[2019-12-11] MEDS: LORazepam 2 MG/ML INJ IV (17:26)
--- NOTE | 2019-12-11 19:00 | PC.NURSE ---
Report given to JUAN Nina at [facility] at this time for transfer.
--- NOTE | 2019-12-11 19:11 | PC.NURSE ---
1800 Octreotide and protonix drip continued in transport with EMS. Changed over to their portable pumps.
== END 2019-12-11 18:10 | disposition short-term general hospital (02) ==
PROVIDERS: Emergency Provider Emergency Medicine; PCP Family Medicine
DX: K92.2 Gastrointestinal hemorrhage, unspecified (principal); R10.13 Epigastric pain
CPT/HCPCS: 36415; 71275; 74177; 80053; 80305; 80320; 80329; 82550; 82553; 83690; 84484; 85025; 85610; 85730; 86850; 86900; 86901; 93005; 96365; 96366; 96368; 96375; 99285; C9113; G0480; J2060; J2354; J2405; Q9967

== ENCOUNTER 2019-12-26 22:50 | Emergency (ER) | payer OTHER, MEDICAID, SELFPAY ==
[2019-12-26 23:01] VITALS: BP 176/92; PULSE 77; RESP 14; TEMP 36.4; O2SAT 97; BMI 28.0
[2019-12-26 23:31] LABS: UR Morphine/Opiate cutoff 300 Negative (Negative); Ur Creatinine Normal (Normal); Ur Specific Gravity Normal (Normal); Urine Amphetamines Negative (Negative); Urine Barbiturates Negative (Negative); Urine Benzodiazepines Negative (Negative); Urine Cocaine Negative (Negative); Urine MDMA Negative (Negative); Urine Methadone Negative (Negative); Urine Methamphetamines Negative (Negative); Urine Oxycodone Positive (Negative); Urine Phencyclidine Negative (Negative); Urine Tetrahydrocannabinol Positive (Negative); Urine Tricyclic Antidepressant Negative (Negative); Urine pH Normal (Normal)
[2019-12-26 23:39] LABS: Add Manual Diff / Slide Review NO; Basophils Absolute Auto 0 /uL (0-100); Basophils Percent Auto 0.9 % (0-2); Eosinophils Absolute Auto 100 /uL (0-450); Eosinophils Percent Auto 1.5 % (2-4); Hematocrit 37.3 % (41-53); Lymphocytes Absolute Auto 900 /uL (1100-4500); Lymphocytes Percent Auto 27.5 % (25-40); Mean Corpuscular HGB Conc 34.7 % (30-36); Mean Corpuscular Hemoglobin 36.3 PG (26-34); Mean Corpuscular Volume 104.6 fL (80-100); Monocytes Absolute Auto 400 /uL (0-900); Monocytes Percent Auto 12.5 % (3-14); Neutrophils Absolute Auto 1900 /uL (1500-7000); Neutrophils Percent Auto 57.6 % (50-75); Platelet Count 129 X10^3/uL (150-400); Red Blood Cell Count 3.57 X10^6/uL (4.5-5.9); Red Cell Distribution Width 13.9 % (11.6-14.8); White Blood Cell Count 3.3 X10^3/uL (4.5-11.0)
[2019-12-26 23:44] LABS: Prothrombin Time 11.3 SECONDS (10.1-12.7)
--- NOTE | 2019-12-26 23:44 | ED_ITS ---
HPI - Alcohol General Chief Complaint: Toxicology Problem Stated Complaint: states needs to detox Time Seen by Provider: 12/26/19 23:30 Source: patient and old records reviewed Mode of arrival: Ambulatory Limitations: no limitations History of Present Illness HPI narrative: 54-year-old male comes emergency department requesting detox. Patient states he typically drinks a pt plus a 6 pack daily and takes 2.5 mg Pe rcocet q.2 hours while awake. He states he probably takes a minimum of 6-8 Percocet daily. He does smoke marijuana. He denies any other illicit. Patient has a history of alcohol abuse, he was sober for about 15 years is thin had about 3 years of alcohol abuse again. Patient stated that his sober. Was after a court-ordered detox and he feels that he likely needs inpatient detox again. Denies any suicidal homicidal thoughts. Denies any mental health although he does feel anxious at this time. He feels like his heart rate is fast. He has a history of esophageal varices and was seen at [facility]. He takes a PPI daily. Patient has not had any abdominal pain, no vomiting, no hematemesis, he has had normal bowel movements without any black or blood. He states that his chest feels ?empty.? He denies any syncope. Patient denies any other medical issues besides his cirrhosis and varices. He was not discharged on nadolol or any other beta-blockers when he left [place]. He states that he has had withdrawals in the past and he denies hallucinations or seizures but st ates they have been severe. Related Data Previous Rx's Medication Instructions Recorded lorazepam [Ativan] See Rx Instructions .ROUTE 12/27/19 .COMPLEX PRN #19 tab Allergies Allergy/AdvReac Type Severity Reaction Status Date / Time Penicillins [PENICILLINS] Allergy Unknown Verified 12/11/19 12:47 Review of Systems Review of Systems ROS Unobtainable: All systems reviewed & are unremarkable except as noted in HPI and below Patient History Medical History Headache (Chronic) Hearing loss (Chronic) Hepatitis C (Acute) Vision disorder (Chronic) Surgical History Hiatal hernia (Resolved) Periumbilical hernia (Resolved) Social History Smoking Status: Current every day smoker Tobacco: How many years used: 39 alcohol intake: current (approx 21 drinks per week) substance use type: marijuana Smoking Status: Current every day smoker alcohol intake frequency: 3 or more drinks per day Alcohol type: beer and hard liquor Substance Use Type: marijuana Exam Narrative Exam Narrative: GENERAL: Alert and oriented x three, well-nourished male in mild distress. HEENT: Head normocephalic, atraumatic, EOMI, pupils reactive, face symmetric, moist mucous membranes NECK: Supple, full range of motion CARDIOVASCULAR: Tachycardic but regular rate and rhythm without murmurs, rubs or gallops. RESPIRATORY: Breath sounds equal bilaterally, no wheezes rales or rhonchi. No tachypnea or accessory muscle use. ABDOMEN: Soft, nontender. Normoactive bowel sounds all 4 quadrants. No guarding or rebound, rigidity, no mass. Non-distended. : No CVA tenderness EXTREMITIES: Normal range of motion, no clubbing or edema. Neurovascularly intact NEUROLOGICAL: Cranial nerves II through XII grossly intact. Moving all extremities SKIN: Warm, dry, no petechiae, no rashes or lesions. Initial Vital Signs Initial Vital Signs: Vital Signs Temperature 97.6 F 12/26/19 23:01 Pulse Rate 77 12/26/19 23:01 Respiratory Rate 14 12/26/19 23:01 Blood Pressure 176/92 H 12/26/19 23:01 Pulse Oximetry 97 12/26/19 23:01 Scores GCS Liza coma scale eye opening: Spontaneous [place] coma scale verbal response: Orientated Liza coma scale motor response: Obey commands [place] coma scale total score: 15 Course Orders Ordered: ED Orders 12/26/19 23:06 Acetaminophen Stat Complete Blood Count AUTO DIFF Stat Comprehensive Metabolic Panel Stat Ethanol (ETOH) Stat Free T4, Direct Thyroxine Stat Partial Thromboplastin Time Stat Prothrombin Time INR Stat Salicylate Stat Thyroid Stimulating Hormone Stat 12/26/19 23:25 Urine Drug Screen, Rapid Stat 12/27/19 00:07 Troponin & CK Cardiac Panel Stat 12/27/19 00:18 EKG-12 Lead Stat 12/27/19 00:56 XR chest 1V Stat 12/27/19 02:45 Ethanol (ETOH) Stat Discontinued Medications Sodium Chloride (Normal Saline 0.9%) 1,000 mls @ 1,000 mls/hr IV BOLUS ONE Stop: 12/27/19 01:06 Last Infusion: 12/27/19 01:42 Dose: 1,000 mls/hr Documented by: Admin: 12/27/19 00:15 Dose: 1,000 mls/hr Documented by: ALVA Lorazepam (Ativan) 2 mg IV NOW ONE Stop: 12/27/19 00:08 Last Admin: 12/27/19 00:15 Dose: 2 mg Documented by: ALVA Lorazepam (Ativan) 2 mg PO NOW ONE Stop: 12/27/19 03:18 Lorazepam (Ativan) 1 mg PO NOW ONE Stop: 12/27/19 03:37 Last Admin: 12/27/19 03:41 Dose: 1 mg Documented by: FELIPE Nicotine (Nicoderm) 21 mg TOP NOW ONE Stop: 12/27/19 01:01 Last Admin: 12/27/19 01:11 Dose: 21 mg Documented by: ALVA Pantoprazole Sodium (Protonix) 40 mg IV NOW ONE Stop: 12/27/19 00:14 Last Admin: 12/27/19 00:34 Dose: 40 mg Documented by: ALVA Vital Signs Vital signs: Vital Signs - 8 hr 12/26/19 23:01 12/27/19 00:00 12/27/19 01:00 Temperature 97.6 F Pulse Rate 77 72 75 Respiratory Rate 14 18 17 Blood Pressure 176/92 H Blood Pressure [Left Arm] 133/72 142/85 H Pulse Oximetry 97 96 94 12/27/19 02:45 Temperature Pulse Rate 69 Respiratory Rate 15 Blood Pressure Blood Pressure [Left Arm] Pulse Oximetry MDM - Alcohol Lab Data Attestation: I reviewed the patient's lab results. Result diagrams: 12/26/19 23:06 12/26/19 23:06 Labs: Lab Results 12/26/19 12/26/19 12/26/19 Range/Units 23:06 23:06 23:06 WBC 3.3 L (4.5-11.0) X10^3/uL RBC 3.57 L (4.5-5.9) X10^6/uL Hgb 13.0 L (13.5-17.5) g/dL Hct 37.3 L (41-53) % MCV 104.6 H (80-100) fL MCH 36.3 H (26-34) PG MCHC 34.7 (30-36) % RDW 13.9 (11.6-14.8) % Plt Count 129 L (150-400) X10^3/uL Neut % (Auto) 57.6 (50-75) % Lymph % (Auto) 27.5 (25-40) % [place] % (Auto) 12.5 (3-14) % Eos % (Auto) 1.5 L (2-4) % Baso % (Auto) 0.9 (0-2) % Neut # (Auto) 1900 (3797-4923) /uL Lymph # (Auto) 900 L (7107-5264) /uL [place] # (Auto) 400 (0-900) /uL Eos # (Auto) 100 (0-450) /uL Baso # (Auto) 0 (0-100) /uL PT (10.1-12.7) SECONDS INR (0.9-1.3) APTT (26.4-36.2) SECONDS Sodium 136 L (137-145) mmol/L Potassium 3.8 (3.4-5.1) mmol/L Chloride 99 (98-107) mmol/L Carbon Dioxide 22 (22-32) mmol/L BUN 6 L (9-20) mg/dL Creatinine 0.60 L (0.66-1.25) mg/dL Estimated GFR > 60.0 (>60) mL/min BUN/Creatinine Ratio 10.0 (6-22) Glucose 132 H (70-100) mg/dL Calcium 9.1 (8.4-10.2) mg/dL Total Bilirubin 0.5 (0.2-1.3) mg/dL AST 176 H (17-59) IU/L ALT 158 H (<50) IU/L Alkaline Phosphatase 75 (38-126) U/L Total Creatine Kinase (55-170) U/L CK-MB (CK-2) (<2.37) ng/mL CK-MB (CK-2) Rel Index (1.5-5.0) % Troponin I (0.01-0.034) ng/mL Total Protein 7.5 (6.3-8.2) g/dL Albumin 4.0 (3.5-5.0) g/dL Globulin 3.5 (1.7-4.1) g/dL Albumin/Globulin Ratio 1.1 (1.0-2.8) TSH 2.43 (0.47-4.68) uIU/mL Free T4 1.06 (0.78-2.19) ng/dL Salicylates < 1.0 (<20) mg/dL U Opiates 300ng/mL cut (Negative) Ur Oxycodone Screen (Negative) Urine Methadone Screen (Negative) Acetaminophen < 10 L (10-30) ug/mL Ur Barbiturates Screen (Negative) U Tricyclic Antidepress (Negative) Ur Phencyclidine Scrn (Negative) Ur Amphetamines Screen (Negative) U Methamphetamines Scrn (Negative) Ur MDMA Scrn (Ecstasy) (Negative) U Benzodiazepines Scrn (Negative) Urine Cocaine Screen (Negative) U Marijuana (THC) Screen (Negative) Ethyl Alcohol 228 H ( - 10) mg/dL 12/26/19 12/26/19 12/26/19 Range/Units 23:06 23:06 23:25 WBC (4.5-11.0) X10^3/uL RBC (4.5-5.9) X10^6/uL Hgb (13.5-17.5) g/dL Hct (41-53) % MCV (80-100) fL MCH (26-34) PG MCHC (30-36) % RDW (11.6-14.8) % Plt Count (150-400) X10^3/uL Neut % (Auto) (50-75) % Lymph % (Auto) (25-40) % [place] % (Auto) (3-14) % Eos % (Auto) (2-4) % Baso % (Auto) (0-2) % Neut # (Auto) (7095-7885) /uL Lymph # (Auto) (3507-7797) /uL [place] # (Auto) (0-900) /uL Eos # (Auto) (0-450) /uL Baso # (Auto) (0-100) /uL PT 11.3 (10.1-12.7) SECONDS INR 1.0 (0.9-1.3) APTT 31 (26.4-36.2) SECONDS Sodium (137-145) mmol/L Potassium (3.4-5.1) mmol/L Chloride (98-107) mmol/L Carbon Dioxide (22-32) mmol/L BUN (9-20) mg/dL Creatinine (0.66-1.25) mg/dL Estimated GFR (>60) mL/min BUN/Creatinine Ratio (6-22) Glucose (70-100) mg/dL Calcium (8.4-10.2) mg/dL Total Bilirubin (0.2-1.3) mg/dL AST (17-59) IU/L ALT (<50) IU/L Alkaline Phosphatase (38-126) U/L Total Creatine Kinase 134 (55-170) U/L CK-MB (CK-2) 2.08 (<2.37) ng/mL CK-MB (CK-2) Rel Index 1.6 (1.5-5.0) % Troponin I 0.013 (0.01-0.034) ng/mL Total Protein (6.3-8.2) g/dL Albumin (3.5-5.0) g/dL Globulin (1.7-4.1) g/dL Albumin/Globulin Ratio (1.0-2.8) TSH (0.47-4.68) uIU/mL Free T4 (0.78-2.19) ng/dL Salicylates (<20) mg/dL U Opiates 300ng/mL cut Negative (Negative) Ur Oxycodone Screen Positive H (Negative) Urine Methadone Screen Negative (Negative) Acetaminophen (10-30) ug/mL Ur Barbiturates Screen Negative (Negative) U Tricyclic Antidepress Negative (Negative) Ur Phencyclidine Scrn Negative (Negative) Ur Amphetamines Screen Negative (Negative) U Methamphetamines Scrn Negative (Negative) Ur MDMA Scrn (Ecstasy) Negative (Negative) U Benzodiazepines Scrn Negative (Negative) Urine Cocaine Screen Negative (Negative) U Marijuana (THC) Screen Positive H (Negative) Ethyl Alcohol ( - 10) mg/dL 12/27/19 Range/Units 02:45 WBC (4.5-11.0) X10^3/uL RBC (4.5-5.9) X10^6/uL Hgb (13.5-17.5) g/dL Hct (41-53) % MCV (80-100) fL MCH (26-34) PG MCHC (30-36) % RDW (11.6-14.8) % Plt Count (150-400) X10^3/uL Neut % (Auto) (50-75) % Lymph % (Auto) (25-40) % [place] % (Auto) (3-14) % Eos % (Auto) (2-4) % Baso % (Auto) (0-2) % Neut # (Auto) (6869-6250) /uL Lymph # (Auto) (8946-8049) /uL [place] # (Auto) (0-900) /uL Eos # (Auto) (0-450) /uL Baso # (Auto) (0-100) /uL PT (10.1-12.7) SECONDS INR (0.9-1.3) APTT (26.4-36.2) SECONDS Sodium (137-145) mmol/L Potassium (3.4-5.1) mmol/L Chloride (98-107) mmol/L Carbon Dioxide (22-32) mmol/L BUN (9-20) mg/dL Creatinine (0.66-1.25) mg/dL Estimated GFR (>60) mL/min BUN/Creatinine Ratio (6-22) Glucose (70-100) mg/dL Calcium (8.4-10.2) mg/dL Total Bilirubin (0.2-1.3) mg/dL AST (17-59) IU/L ALT (<50) IU/L Alkaline Phosphatase (38-126) U/L Total Creatine Kinase (55-170) U/L CK-MB (CK-2) (<2.37) ng/mL CK-MB (CK-2) Rel Index (1.5-5.0) % Troponin I (0.01-0.034) ng/mL Total Protein (6.3-8.2) g/dL Albumin (3.5-5.0) g/dL Globulin (1.7-4.1) g/dL Albumin/Globulin Ratio (1.0-2.8) TSH (0.47-4.68) uIU/mL Free T4 (0.78-2.19) ng/dL Salicylates (<20) mg/dL U Opiates 300ng/mL cut (Negative) Ur Oxycodone Screen (Negative) Urine Methadone Screen (Negative) Acetaminophen (10-30) ug/mL Ur Barbiturates Screen (Negative) U Tricyclic Antidepress (Negative) Ur Phencyclidine Scrn (Negative) Ur Amphetamines Screen (Negative) U Methamphetamines Scrn (Negative) Ur MDMA Scrn (Ecstasy) (Negative) U Benzodiazepines Scrn (Negative) Urine Cocaine Screen (Negative) U Marijuana (THC) Screen (Negative) Ethyl Alcohol 172 H ( - 10) mg/dL Urine Dip Bedside Urine Glucose Negative Bedside Urine Bilirubin - Negative Bedside Urine Ketone - Negative Urine Specific [place] 1.015 Bedside Urine Occult Blood - Negative Bedside Urine pH 6.0 Bedside Urine Protein - Negative Bedside Urine Urobilinogen - Negative Bedside Urine Nitrite - Negative Bedside Urine Leukocytes - Negative Esterase Imaging Data Chest x-ray: Attestation: I personally reviewed and interpreted this imaging study as follows: My Impression: nap. ECG Data Attestation: I personally reviewed and interpreted this ECG as follows: Prior ECG tracings: available for review Interpretation: Sinus rhythm with 1st degree AV block. Rate of 63, NC of 213, QRS of 110, QTC 403. No ST elevation or depression, nonspecific change. Patient has prior EKG from 12/05/2019 which appears similar. [facility] Narrative Medical decision making narrative: Patient's HR is elevated, he does not have any active tremor but admits to ingestion just prior to arrival. Labs show a hemoglobin of 13, white count of 3.3 with macrocytosis, platelets are 129 which appear consistent with patient's prior are in normal range with a sodium 136, glucose is 132, AST and ALT are 176 and 158 these are consistent with patient's priors and are not elevated from normal baseline, troponin was included which is negative as well as TSH. Toxicology is positive for oxycodone marijuana which is consistent with patient's description taking Percocet marijuana. Alcohol is 228 today. Tylenol was included as patient frequently takes percocet. Patient CXR shows no acute changes. Patient is hypertensive, HR has improved. He has ambulated to the bathroom se veral times without issue. He spoke with the detox center, they do have beds at this time. Detox center does have beds. Patient spoke with them over the phone. Detox requested repeat etoh which is 172. Patient accepted they did ask for rx for ativan for withdrawl to be sent with patient and patient may come to detox center now. Patient given one additional po dose in ED prior to discharge and rx for ativan. Patient sister contacted and she will drive patient to [facility]. Patient comfortable with the plan. His vitals have improved in department and no tremors or other signs of worsening DT's. Discharge Plan Departure Patient Disposition: Released, Other Clinical Impression: Alcohol abuse Activity Restrictions/Additional Instructions: Go directly to the crisis/detox center. Take the prescribed medications for your symptoms. Medications will be dispensed by the staff there. If you leave the Center you CANNOT take the extra medication home with you. Prescriptions: New lorazepam [Ativan] 1 mg tablet See Rx Instructions .ROUTE .COMPLEX PRN (Reason: alcohol withdrawal) Qty: 19 RF: 0 Referrals: Katie Keith MD [Primary Care Provider] -
[2019-12-26 23:47] LABS: PTT Partial Thromboplastin Tim 31 SECONDS (26.4-36.2)
[2019-12-26 23:48] LABS: Acetaminophen < 10 ug/mL (10-30); Alanine Aminotransferase 158 IU/L (<50); Albumin Globulin Ratio 1.1 (1.0-2.8); Alkaline Phosphatase 75 U/L (38-126); Aspartate Aminotransferase 176 IU/L (17-59); Bilirubin Total 0.5 mg/dL (0.2-1.3); Blood Urea Nitrogen 6 mg/dL (9-20); Calcium 9.1 mg/dL (8.4-10.2); Carbon Dioxide 22 mmol/L (22-32); Chloride 99 mmol/L (98-107); Estimated Glomerular Filt Rate > 60.0 mL/min (>60); Ethanol (ETOH) 228 mg/dL; Globulin 3.5 g/dL (1.7-4.1); Glucose 132 mg/dL (70-100); HEMOLYSIS < 15 (0-50); Potassium 3.8 mmol/L (3.4-5.1); Salicylate < 1.0 mg/dL (<20); Sodium 136 mmol/L (137-145); Total Protein 7.5 g/dL (6.3-8.2)
[2019-12-27] VITALS: BP 133/72; PULSE 72; RESP 18; O2SAT 96
[2019-12-27 00:11] LABS: Free T4, Direct Thyroxine 1.06 ng/dL (0.78-2.19)
[2019-12-27] MEDS: SODIUM CHLORIDE 0.9% 1,000 ML 1000 ML IV (00:15)
[2019-12-27] MEDS: LORazepam 2 MG/ML INJ IV (00:15)
[2019-12-27 00:25] LABS: Thyroid Stimulating Hormone 2.43 uIU/mL (0.47-4.68)
[2019-12-27 00:26] LABS: Creatine Kinase 134 U/L (55-170)
[2019-12-27] MEDS: PANTOPRAZOLE 40 MG VIAL IV (00:34)
[2019-12-27 00:39] LABS: Troponin I 0.013 ng/mL (0.01-0.034)
[2019-12-27 00:41] LABS: CKMB % Relative Index 1.6 % (1.5-5.0); Creatine Kinase MB 2.08 ng/mL (<2.37)
--- NOTE | 2019-12-27 00:56 | DI.RAD.S_ITS ---
PROCEDURE: XR CHEST 1V INDICATIONS: alcohol detox request TECHNIQUE: One view of the chest was acquired. COMPARISON: [facility], CR, XR CHEST 2V, 12/20/2018, 13:47. FINDINGS: Surgical changes and devices: None. Lungs and pleura: Slightly diminished lung volumes with minimal left basilar streaky opacities consistent with atelectasis. No focal consolidation. No pleural effusions or pneumothorax. Mediastinum: Mediastinal contours appear normal. Heart size is normal. Bones and chest wall: No suspicious bony lesions. Overlying soft tissues appear unremarkable. IMPRESSION: Chest without acute cardiopulmonary abnormalities. No significant discrepancies from emergency physician's preliminary interpretation. Dictated by: Lalit Hubbard M.D. on 12/27/2019 at 9:07 Approved by: Lalit Hubbard M.D. on 12/27/2019 at 9:09
[2019-12-27 01:00] VITALS: BP 142/85; PULSE 75; RESP 17; O2SAT 94
[2019-12-27] MEDS: NICOTINE 21 MG PATCH TOP (01:11)
[2019-12-27 02:45] VITALS: PULSE 69; RESP 15
[2019-12-27 03:00] LABS: Ethanol (ETOH) 172 mg/dL
--- NOTE | 2019-12-27 03:36 | PC.NURSE ---
Pt was accepted at [facility]. Called sister. Sister able to give patient a ride.
[2019-12-27] MEDS: LORazepam 0.5 MG TABLET 1 MG PO (03:41)
[2019-12-27 03:52] VITALS: BP 141/83; PULSE 64; RESP 15; O2SAT 93
== END 2019-12-27 03:58 | disposition home or self-care (01) ==
PROVIDERS: Emergency Provider Emergency Medicine; Family Provider Family Medicine; PCP Family Medicine
DX: F10.10 Alcohol abuse, uncomplicated (principal)
CPT/HCPCS: 36415; 71045; 80053; 80305; 80320; 80329; 81003; 82550; 82553; 84439; 84443; 84484; 85025; 85610; 85730; 93005; 96361; 96374; 99284; C9113; G0480; J2060

== ENCOUNTER 2020-04-20 12:15 | Emergency (ER) | payer OTHER, MEDICAID, SELFPAY ==
[2020-04-20 12:20] VITALS: BP 153/95; PULSE 78; RESP 18; TEMP 36.7; O2SAT 95
--- NOTE | 2020-04-20 12:36 | DI.RAD.S_ITS ---
PROCEDURE: XR CHEST 2V INDICATIONS: shortness of breath TECHNIQUE: 2 views of the chest were acquired. COMPARISON: [facility], , XR CHEST 1V, 12/27/2019, 1:04. FINDINGS: Surgical changes and devices: None. Lungs and pleura: Lungs are clear. No pleural effusions or pneumothorax. Mediastinum: Mediastinal contours are normal. Heart size is normal. Bones and chest wall: No suspicious bony abnormalities. Soft tissues appear unremarkable. IMPRESSION: No evidence acute pulmonary process. Dictated by: Vasu Mcnair M.D. on 04/20/2020 at 12:52 Approved by: Vasu Mcnair M.D. on 04/20/2020 at 12:53
[2020-04-20 13:00] VITALS: BP 143/90; PULSE 67; O2SAT 96
--- NOTE | 2020-04-20 13:07 | ED_ITS ---
HPI - SOB/Dyspnea <ARMANDO Mehta - Last Filed: 04/20/20 19:40> General Chief Complaint: Shortness of Breath/Dyspnea Stated Complaint: sob/prod cough/nausea/no appetite x10 days Time Seen by Provider: 04/20/20 12:44 Source: patient and family Mode of arrival: Family Vehicle Limitations: no limitations History of Present Illness HPI Narrative: 54yo male current smoker with a history of hepatitis-C, presents emergency department stating ?I just feel like I am not myself ?. He states he smokes approximately a pack a day of cigarettes and states ?I smoke so much marijuana ?. Patient also states that he drinks ?a fifth a day of alcohol. He states ?I drank way too much ?. Patient reports his last drink was approximately an hour ago. He states ?I usually can drink this much and not feel this terrible lately I have been feeling terrible ?. Patient states he has been coughing up brown today mucus over the past 2-3 days.. He reports increasing shortness of breath with exertion and continued fatigue with chills. Patient denies any fevers, abdominal pain, chest pain, nausea, vomiting, diarrhea, dizziness, or any other concerns. Patient states ?I am just worried about this virus and I want to be tested for this ?. Related Data Previous Rx's Medication Instructions Recorded lorazepam [Ativan] See Rx Instructions .ROUTE 12/27/19 .COMPLEX PRN #19 tab Allergies Allergy/AdvReac Type Severity Reaction Status Date / Time Penicillins [PENICILLINS] Allergy Unknown Verified 04/20/20 12:46 Review of Systems <ARMANDO Mehta - Last Filed: 04/20/20 19:40> Review of Systems Narrative: REVIEW OF SYSTEMS: GENERAL: Denies fevers. HENT: No head trauma or hearing loss. EYES: No vision changes. CARDIOVASCULAR: No chest pain or syncope. RESPIRATORY: Reports shortness of breath, see HPI. GASTROINTESTINAL: No nausea, vomiting, diarrhea, or constipation. MUSCULOSKELETAL: No injury. INTEGUMENTARY: No rash, lesions, or pruritus. Patient History <ARMANDO Mehta - Last Filed: 04/20/20 19:40> Medical History Headache (Chronic) Hearing loss (Chronic) Hepatitis C (Acute) Vision disorder (Chronic) Surgical History Hiatal hernia (Resolved) Periumbilical hernia (Resolved) Family History Father History of heart disease Mother Cancer Social History Smoking Status: Current every day smoker Tobacco: How many years used: 39 alcohol intake: current (approx 21 drinks per week) substance use type: marijuana Smoking Status: Current every day smoker alcohol intake frequency: 3 or more drinks per day Alcohol type: beer and hard liquor Substance Use Type: former substance user and marijuana Exam <ARMANDO Mehta - Last Filed: 04/20/20 19:40> Initial Vital Signs Initial Vital Signs: Vital Signs Temperature 98.1 F 04/20/20 12:20 Pulse Rate 78 04/20/20 12:20 Respiratory Rate 18 04/20/20 12:20 Blood Pressure 153/95 H 04/20/20 12:20 Pulse Oximetry 95 04/20/20 12:20 PHYSICAL EXAMINATION: GENERAL: Well groomed, alert, and cooperative. Answers questions promptly and appropriately. Vital signs noted. HENT: Normocephalic, atraumatic. Ear canals patent. TMs intact without mucus or erythema. Oropharynx without erythema. Tonsils are not present. EYES: Conjunctiva pink, sclera white, no periorbital swelling. No discharge. CHEST: Normal to inspection and without deformities. CARDIOVASCULAR: S1 and S2 sounds normal. Regular rate and rhythm, no murmurs, clicks, or bruits. RESPIRATORY: Normal respiratory rate, trachea midline, airway patent. No stridor, nasal flaring or accessory muscle use. Able to speak in full sentences. Decreased lung sounds to lower right lobe, scattered coarse lung sounds. No crackles or wheezes. Dry cough noted throughout examination. MUSCULOSKELETAL: Normal gait and coordination. Equal tone and mass bilaterally. EXTREMITIES: Moves all extremities. SKIN: Warm, dry, soft, appropriate color for ethnicity. No lesions, rashes, or wounds to visualized areas. NEURO: Alert and Oriented X 3. Good coordination. No ataxia or cognitive issues. PSYCH: Appropriate affect and mood. <Gagandeep Jeffries MD - Last Filed: 04/23/20 07:34> Initial Vital Signs Initial Vital Signs: Vital Signs Temperature 98.1 F 04/20/20 12:20 Pulse Rate 78 04/20/20 12:20 Respiratory Rate 18 04/20/20 12:20 Blood Pressure 153/95 H 04/20/20 12:20 Pulse Oximetry 95 04/20/20 12:20 Scores <ARMANDO Mehta - Last Filed: 04/20/20 19:40> PERC Score Age greater than or equal to 50 years: Yes Heart rate greater than or equal to 100 bpm: No Room Air O2 Sat less than 95%: No Unilateral leg swelling: No Recent trauma or surgery: No Hemoptysis: No Prior PE or DVT: No Hormone Use: No Total PERC Score: 1 Wells' Criteria for PE Clinical signs and symptoms of DVT: No PE is #1 Dx or equally likely: No Heart rate > 100: No Immobilization at least 3 days or surg in previous 4 weeks: No History of PE or DVT: No Hemoptysis: Yes Malignancy w/Treatment within 6 months or palliative: No Wells' PE Score total: 1 Wells' Criteria for DVT Active Cancer (Treatment within 6 months): No Bedridden recently >3 days or major surgery within 4 weeks: No Calf Swelling >3cm compared to other leg: No Collateral (nonvericose) superficial veins present: No Entire leg swollen: No Localized tenderness along the deep vein system: No Pitting edema, confined to symtomatic leg: No Paralysis, paresis, or recent plaster immobilization of ext: No Previously documented DVT: No Course <ARMANDO Mehta - Last Filed: 04/20/20 19:40> Course Course Narrative: Upon re-evaluation post test, patient states he is feeling much better. We discussed options for alcohol abuse, patient states he would rather follow up with his primary care provider intact about inpatient treatment. He states he has been feeling worse due to social isolation. Sister was present at bedside for this conversation as well. Patient agrees to follow-up. Sister was requesting that COVID-19 results be called her, patient was agreeable to this. SisterConnie, contact info is available in the chart. Orders Ordered: Discontinued Medications Sodium Chloride (Normal Saline 0.9%) 1,000 mls @ 1,000 mls/hr IV BOLUS ONE Stop: 04/20/20 15:31 Last Infusion: 04/20/20 16:21 Dose: 0 mls/hr Documented by: Admin: 04/20/20 15:18 Dose: 1,000 mls/hr Documented by: KEVIN Consultations Consultation #1: Patient staffed with Dr. Jeffries discussed test, test results, and plan of care. Vital Signs Vital signs: Vital Signs - 8 hr 04/20/20 12:20 04/20/20 13:00 04/20/20 16:12 Temperature 98.1 F Pulse Rate 78 67 84 Respiratory Rate 18 21 Blood Pressure 153/95 H Blood Pressure [Right Arm] 143/90 H 147/77 H Pulse Oximetry 95 96 97 <Gagandeep Jeffries MD - Last Filed: 04/23/20 07:34> Orders Ordered: Discontinued Medications Sodium Chloride (Normal Saline 0.9%) 1,000 mls @ 1,000 mls/hr IV BOLUS ONE Stop: 04/20/20 15:31 Last Infusion: 04/20/20 16:21 Dose: 0 mls/hr Documented by: Admin: 04/20/20 15:18 Dose: 1,000 mls/hr Documented by: KEVIN Vital Signs Vital signs: Vital Signs - 8 hr 04/20/20 12:20 04/20/20 13:00 04/20/20 16:12 Temperature 98.1 F Pulse Rate 78 67 84 Respiratory Rate 18 21 Blood Pressure 153/95 H Blood Pressure [Right Arm] 143/90 H 147/77 H Pulse Oximetry 95 96 97 MDM - SOB/Dyspnea <ARMANDO Mehta - Last Filed: 04/20/20 19:40> Medical Records Attestation: I reviewed the patient's medical records. Lab Data Attestation: I reviewed the patient's lab results. Result diagrams: 04/20/20 13:21 04/20/20 13:21 Labs: Lab Results 04/20/20 04/20/20 04/20/20 Range/Units 13:21 13:21 13:21 WBC 3.2 L (4.5-11.0) X10^3/uL RBC 4.35 L (4.5-5.9) X10^6/uL Hgb 15.8 (13.5-17.5) g/dL Hct 44.9 (41-53) % MCV 103.2 H (80-100) fL MCH 36.2 H (26-34) PG MCHC 35.1 (30-36) % RDW 15.2 H (11.6-14.8) % Plt Count 55 L (150-400) X10^3/uL Neut % (Auto) 47.9 L (50-75) % Lymph % (Auto) 38.3 (25-40) % [place] % (Auto) 10.7 (3-14) % Eos % (Auto) 2.0 (2-4) % Baso % (Auto) 1.1 (0-2) % Neut # (Auto) 1600 (6455-7939) /uL Lymph # (Auto) 1200 (8286-5652) /uL [place] # (Auto) 300 (0-900) /uL Eos # (Auto) 100 (0-450) /uL Baso # (Auto) 0 (0-100) /uL D-Dimer (<230) ng/mL Sodium 144 (137-145) mmol/L Potassium 3.9 (3.4-5.1) mmol/L Chloride 105 (98-107) mmol/L Carbon Dioxide 31 (22-32) mmol/L BUN 6 L (9-20) mg/dL Creatinine 0.69 (0.66-1.25) mg/dL Estimated GFR > 60.0 (>60) mL/min BUN/Creatinine Ratio 8.7 (6-22) Glucose 104 H (70-100) mg/dL Lactate 2.0 (0.7-2.1) mmol/L Calcium 9.0 (8.4-10.2) mg/dL Total Bilirubin 0.9 (0.2-1.3) mg/dL AST 178 H (17-59) IU/L ALT 155 H (<50) IU/L Alkaline Phosphatase 97 (38-126) U/L Total Creatine Kinase (55-170) U/L CK-MB (CK-2) (<2.37) ng/mL CK-MB (CK-2) Rel Index (1.5-5.0) % Troponin I (0.01-0.034) ng/mL NT-Pro-B Natriuret Pep (<125) pg/mL Total Protein 8.5 H (6.3-8.2) g/dL Albumin 4.5 (3.5-5.0) g/dL Globulin 4.0 (1.7-4.1) g/dL Albumin/Globulin Ratio 1.1 (1.0-2.8) Procalcitonin (<0.5) ng/mL COVID-19 PCR (Not Detect) 04/20/20 04/20/20 04/20/20 Range/Units 13:25 13:25 13:25 WBC (4.5-11.0) X10^3/uL RBC (4.5-5.9) X10^6/uL Hgb (13.5-17.5) g/dL Hct (41-53) % MCV (80-100) fL MCH (26-34) PG MCHC (30-36) % RDW (11.6-14.8) % Plt Count (150-400) X10^3/uL Neut % (Auto) (50-75) % Lymph % (Auto) (25-40) % [place] % (Auto) (3-14) % Eos % (Auto) (2-4) % Baso % (Auto) (0-2) % Neut # (Auto) (9506-5125) /uL Lymph # (Auto) (6373-5968) /uL [place] # (Auto) (0-900) /uL Eos # (Auto) (0-450) /uL Baso # (Auto) (0-100) /uL D-Dimer 341 H (<230) ng/mL Sodium (137-145) mmol/L Potassium (3.4-5.1) mmol/L Chloride (98-107) mmol/L Carbon Dioxide (22-32) mmol/L BUN (9-20) mg/dL Creatinine (0.66-1.25) mg/dL Estimated GFR (>60) mL/min BUN/Creatinine Ratio (6-22) Glucose (70-100) mg/dL Lactate (0.7-2.1) mmol/L Calcium (8.4-10.2) mg/dL Total Bilirubin (0.2-1.3) mg/dL AST (17-59) IU/L ALT (<50) IU/L Alkaline Phosphatase (38-126) U/L Total Creatine Kinase 208 H (55-170) U/L CK-MB (CK-2) 2.15 (<2.37) ng/mL CK-MB (CK-2) Rel Index 1.0 L (1.5-5.0) % Troponin I 0.040 H (0.01-0.034) ng/mL NT-Pro-B Natriuret Pep (<125) pg/mL Total Protein (6.3-8.2) g/dL Albumin (3.5-5.0) g/dL Globulin (1.7-4.1) g/dL Albumin/Globulin Ratio (1.0-2.8) Procalcitonin < 0.05 (<0.5) ng/mL COVID-19 PCR (Not Detect) 04/20/20 04/20/20 04/20/20 Range/Units 13:25 13:25 15:53 WBC (4.5-11.0) X10^3/uL RBC (4.5-5.9) X10^6/uL Hgb (13.5-17.5) g/dL Hct (41-53) % MCV (80-100) fL MCH (26-34) PG MCHC (30-36) % RDW (11.6-14.8) % Plt Count (150-400) X10^3/uL Neut % (Auto) (50-75) % Lymph % (Auto) (25-40) % [place] % (Auto) (3-14) % Eos % (Auto) (2-4) % Baso % (Auto) (0-2) % Neut # (Auto) (6775-4102) /uL Lymph # (Auto) (1347-6708) /uL [place] # (Auto) (0-900) /uL Eos # (Auto) (0-450) /uL Baso # (Auto) (0-100) /uL D-Dimer (<230) ng/mL Sodium (137-145) mmol/L Potassium (3.4-5.1) mmol/L Chloride (98-107) mmol/L Carbon Dioxide (22-32) mmol/L BUN (9-20) mg/dL Creatinine (0.66-1.25) mg/dL Estimated GFR (>60) mL/min BUN/Creatinine Ratio (6-22) Glucose (70-100) mg/dL Lactate (0.7-2.1) mmol/L Calcium (8.4-10.2) mg/dL Total Bilirubin (0.2-1.3) mg/dL AST (17-59) IU/L ALT (<50) IU/L Alkaline Phosphatase (38-126) U/L Total Creatine Kinase (55-170) U/L CK-MB (CK-2) (<2.37) ng/mL CK-MB (CK-2) Rel Index (1.5-5.0) % Troponin I 0.038 H (0.01-0.034) ng/mL NT-Pro-B Natriuret Pep 21 (<125) pg/mL Total Protein (6.3-8.2) g/dL Albumin (3.5-5.0) g/dL Globulin (1.7-4.1) g/dL Albumin/Globulin Ratio (1.0-2.8) Procalcitonin (<0.5) ng/mL COVID-19 PCR Not detected (Not Detect) Imaging Data Chest x-ray: Radiologist's Impression: [address] [address] XRay Report Signed Patient: Emil Desouza JMR#: [id number] : 1965Acct:[id number] Age/Sex: 54 / MDate of Service: 04/20/20 Loc: ED Accession Number: [id number] Procedure: XR chest 2V Ordering Provider: Gagandeep Jeffries MD PROCEDURE: XR CHEST 2V INDICATIONS: shortness of breath TECHNIQUE: 2 views of the chest were acquired. COMPARISON: [facility], , XR CHEST 1V, 12/27/2019, 1:04. FINDINGS: Surgical changes and devices: None. Lungs and pleura: Lungs are clear. No pleural effusions or pneumothorax. Mediastinum: Mediastinal contours are normal. Heart size is normal. Bones and chest wall: No suspicious bony abnormalities. Soft tissues appear unremarkable. IMPRESSION: No evidence acute pulmonary process. Dictated by: Vasu Mcnair M.D. on 04/20/2020 at 12:52 Approved by: Vasu Mcnair M.D. on 04/20/2020 at 12:53 CTA: Radiologist's Impression: [address] [address] [address] Scan Report Signed Patient: Emil Desouza JMR#: [id number] : 1965Acct:[id number] Age/Sex: 54 / MDate of Service: 04/20/20 Loc: ED Accession Number: [id number] Procedure: CT angio chest PE protocol Ordering Provider: Tammi Dougherty PROCEDURE: CT ANGIO CHEST PE PROTOCOL INDICATIONS: SOB, coughing of brown mucus, elevated D-dimer TECHNIQUE: After the administration of intravenous contrast, 2 mm thick sections acquired from the pulmonary apices to the posterior costophrenic angles. 3-dimensional maximum intensity projection (MIP) coronal and sagittal reformats were then acquired through the thorax. For radiation dose reduction, the following was used: automated exposure control, adjustment of mA and/or kV according to patient size. COMPARISON: [facility], CT, CT ABDOMEN PELVIS W CON, 12/11/2019, 12:48. [facility], CT, CT ANGIO CHEST PE PROTOCOL, 12/11/2019, 12:48. FINDINGS: Image quality: Excellent. Pulmonary arteries: Pulmonary arteries are normal in size, and demonstrate no intraluminal filling defects to suggest central pulmonary embolism. Lungs and pleura: Lungs are clear. No pleural effusions or pneumothorax. Central and peripheral airways are patent. Mediastinum: Heart size is normal, without pericardial effusion. No mediastinal or hilar adenopathy. Thoracic aorta is normal in caliber and enhancement. Esophagus is normal in caliber, without hiatal hernia. Bones and chest wall: No suspicious bony lesions. Ribs and thoracic spine appear intact throughout. Thyroid gland is unremarkable. No axillary or supraclavicular adenopathy. Abdomen: Hepatomegaly, diffuse hepatic steatosis. Benign-appearing hepatic calcifications. Surface nodularity is consistent with cirrhotic change. Splenomegaly. Horseshoe kidney IMPRESSION: 1. No evidence acute pulmonary emboli. 2. No evidence acute pulmonary process. 3. Cirrhosis, hepatomegaly, diffuse hepatic steatosis. 4. Splenomegaly. 5. Incidental note is made of the presence of a horseshoe kidney. Dictated by: Vasu Mcnair M.D. on 04/20/2020 at 14:38 Approved by: Vaus Mcnair M.D. on 04/20/2020 at 14:45 ECG Data Interpretation: 1247: Sinus rhythm, rate 71, OH interval 126, QTC 427. No ST elevation or ST depression. No T-wave inversion. No ectopy. EKg also viewed by Dr. Jeffries per protocol. 1622: Sinus rhythm, rate 66, OH interval 222, QTC 454. No ST elevation or ST depression. No T-wave inversion. Artifact noted in AVR. No ectopy. EKG also viewed by Dr. jeffries per protocol. MDM Narrative Medical decision making narrative: 54-year-old male with a history of alcohol abuse, heavy smoker, and marijuana user, presenting to the emergency department for worsening shortness of breath. I suspect patient's symptoms are most likely related to COPD like changes due to frequent smoking, I suspect the brown phlegm is related to chart. I suspect alcohol use may also contribute to patient's symptoms of time. However, COVID- 19 cannot be ruled at this time and due to increasing respiratory symptoms patient was tested for COVID-19. He was encouraged to self isolate until resu lts return and/or after 3 days of symptoms resolving. Less likely DVT due to negative chest CTA. Patient was scanned due to symptoms, elevated D-dimer, and inability to rule patient know withdrawals and PERC criteria. Less likely pneumonia due to negative chest CT negative x-ray. Less likely CHF due to fairly clear lung sounds, negative BNP. Less likely ACS due to lack of other symptoms such as chest pain, diaphoresis, or EKG changes. Serial EKGs without acute changes. Patient's troponin was s lightly elevated, repeat troponin shows declining measures. Patient has had troponin elevated similar to this in the past, I suspect this is most likely related to drug and alcohol use. We discussed the importance of follow-up and treatment for addiction. Patient opted to further discuss options with his primary care provider. Patient was given very strict return precautions for new or worsening symptoms. Patient was awake and alert during discharge, he was accompanied by sister who drove him home. Patient agreed to plan of care verbalized understanding. <Gagandeep Jeffries MD - Last Filed: 04/23/20 07:34> Lab Data Labs: Lab Results 04/20/20 04/20/20 04/20/20 Range/Units 13:21 13:21 13:21 WBC 3.2 L (4.5-11.0) X10^3/uL RBC 4.35 L (4.5-5.9) X10^6/uL Hgb 15.8 (13.5-17.5) g/dL Hct 44.9 (41-53) % MCV 103.2 H (80-100) fL MCH 36.2 H (26-34) PG MCHC 35.1 (30-36) % RDW 15.2 H (11.6-14.8) % Plt Count 55 L (150-400) X10^3/uL Neut % (Auto) 47.9 L (50-75) % Lymph % (Auto) 38.3 (25-40) % [place] % (Auto) 10.7 (3-14) % Eos % (Auto) 2.0 (2-4) % Baso % (Auto) 1.1 (0-2) % Neut # (Auto) 1600 (2986-2761) /uL Lymph # (Auto) 1200 (7072-9547) /uL [place] # (Auto) 300 (0-900) /uL Eos # (Auto) 100 (0-450) /uL Baso # (Auto) 0 (0-100) /uL D-Dimer (<230) ng/mL Sodium 144 (137-145) mmol/L Potassium 3.9 (3.4-5.1) mmol/L Chloride 105 (98-107) mmol/L Carbon Dioxide 31 (22-32) mmol/L BUN 6 L (9-20) mg/dL Creatinine 0.69 (0.66-1.25) mg/dL Estimated GFR > 60.0 (>60) mL/min BUN/Creatinine Ratio 8.7 (6-22) Glucose 104 H (70-100) mg/dL Lactate 2.0 (0.7-2.1) mmol/L Calcium 9.0 (8.4-10.2) mg/dL Total Bilirubin 0.9 (0.2-1.3) mg/dL AST 178 H (17-59) IU/L ALT 155 H (<50) IU/L Alkaline Phosphatase 97 (38-126) U/L Total Creatine Kinase (55-170) U/L CK-MB (CK-2) (<2.37) ng/mL CK-MB (CK-2) Rel Index (1.5-5.0) % Troponin I (0.01-0.034) ng/mL NT-Pro-B Natriuret Pep (<125) pg/mL Total Protein 8.5 H (6.3-8.2) g/dL Albumin 4.5 (3.5-5.0) g/dL Globulin 4.0 (1.7-4.1) g/dL Albumin/Globulin Ratio 1.1 (1.0-2.8) Procalcitonin (<0.5) ng/mL COVID-19 PCR (Not Detect) 04/20/20 04/20/20 04/20/20 Range/Units 13:25 13:25 13:25 WBC (4.5-11.0) X10^3/uL RBC (4.5-5.9) X10^6/uL Hgb (13.5-17.5) g/dL Hct (41-53) % MCV (80-100) fL MCH (26-34) PG MCHC (30-36) % RDW (11.6-14.8) % Plt Count (150-400) X10^3/uL Neut % (Auto) (50-75) % Lymph % (Auto) (25-40) % [place] % (Auto) (3-14) % Eos % (Auto) (2-4) % Baso % (Auto) (0-2) % Neut # (Auto) (4560-4436) /uL Lymph # (Auto) (8009-3039) /uL [place] # (Auto) (0-900) /uL Eos # (Auto) (0-450) /uL Baso # (Auto) (0-100) /uL D-Dimer 341 H (<230) ng/mL Sodium (137-145) mmol/L Potassium (3.4-5.1) mmol/L Chloride (98-107) mmol/L Carbon Dioxide (22-32) mmol/L BUN (9-20) mg/dL Creatinine (0.66-1.25) mg/dL Estimated GFR (>60) mL/min BUN/Creatinine Ratio (6-22) Glucose (70-100) mg/dL Lactate (0.7-2.1) mmol/L Calcium (8.4-10.2) mg/dL Total Bilirubin (0.2-1.3) mg/dL AST (17-59) IU/L ALT (<50) IU/L Alkaline Phosphatase (38-126) U/L Total Creatine Kinase 208 H (55-170) U/L CK-MB (CK-2) 2.15 (<2.37) ng/mL CK-MB (CK-2) Rel Index 1.0 L (1.5-5.0) % Troponin I 0.040 H (0.01-0.034) ng/mL NT-Pro-B Natriuret Pep (<125) pg/mL Total Protein (6.3-8.2) g/dL Albumin (3.5-5.0) g/dL Globulin (1.7-4.1) g/dL Albumin/Globulin Ratio (1.0-2.8) Procalcitonin < 0.05 (<0.5) ng/mL COVID-19 PCR (Not Detect) 04/20/20 04/20/20 04/20/20 Range/Units 13:25 13:25 15:53 WBC (4.5-11.0) X10^3/uL RBC (4.5-5.9) X10^6/uL Hgb (13.5-17.5) g/dL Hct (41-53) % MCV (80-100) fL MCH (26-34) PG MCHC (30-36) % RDW (11.6-14.8) % Plt Count (150-400) X10^3/uL Neut % (Auto) (50-75) % Lymph % (Auto) (25-40) % [place] % (Auto) (3-14) % Eos % (Auto) (2-4) % Baso % (Auto) (0-2) % Neut # (Auto) (9504-8279) /uL Lymph # (Auto) (8878-6590) /uL [place] # (Auto) (0-900) /uL Eos # (Auto) (0-450) /uL Baso # (Auto) (0-100) /uL D-Dimer (<230) ng/mL Sodium (137-145) mmol/L Potassium (3.4-5.1) mmol/L Chloride (98-107) mmol/L Carbon Dioxide (22-32) mmol/L BUN (9-20) mg/dL Creatinine (0.66-1.25) mg/dL Estimated GFR (>60) mL/min BUN/Creatinine Ratio (6-22) Glucose (70-100) mg/dL Lactate (0.7-2.1) mmol/L Calcium (8.4-10.2) mg/dL Total Bilirubin (0.2-1.3) mg/dL AST (17-59) IU/L ALT (<50) IU/L Alkaline Phosphatase (38-126) U/L Total Creatine Kinase (55-170) U/L CK-MB (CK-2) (<2.37) ng/mL CK-MB (CK-2) Rel Index (1.5-5.0) % Troponin I 0.038 H (0.01-0.034) ng/mL NT-Pro-B Natriuret Pep 21 (<125) pg/mL Total Protein (6.3-8.2) g/dL Albumin (3.5-5.0) g/dL Globulin (1.7-4.1) g/dL Albumin/Globulin Ratio (1.0-2.8) Procalcitonin (<0.5) ng/mL COVID-19 PCR Not detected (Not Detect) Discharge Plan Departure Patient Disposition: Home Clinical Impression: Shortness of breath, Alcohol abuse Discharge Date/Time: 04/20/20 17:05 Instructions: DI for Chronic Obstructive Pulmonary Disease, DI for Cough -- Adult, DI for Alcohol Abuse Activity Restrictions/Additional Instructions: Thank you for entrusting me with your care today. As discussed, your chest x-ray and CT are negative for any concerning signs such as pneumonia or a blood clot. Your laboratory work showed a slightly elevated troponin which is most likely caused by excessive drinking and smoking. Your shortness of breath is most likely caused by frequent smoking. However, due to the current pandemic and your report of respiratory symptoms you have been tested for COVID-19. This test may take 1-4 days for results to return, we will call you with these results. If you do not hear from us in 2 days you may call us for results, our phone number is [phone]. Please remain at home for 3 days after your symptoms have completely resolved. Drink lots of fluids, take Tylenol for fever, get extra rest, clean all surfaces, cover your cough, wash your hands frequently, and avoid sharing any personal items. Please return emergency department for any new or worsening symptoms such as shortness of breath, chest pain, dizziness, or any other concerns. I recommend following up with your primary care provider in the next week for further evaluation. Prescriptions: No Action lorazepam [Ativan] 1 mg tablet See Rx Instructions .ROUTE .COMPLEX PRN (Reason: alcohol withdrawal) Qty: 19 RF: 0 Referrals: Katie Keith MD [Primary Care Provider] -
[2020-04-20 13:31] LABS: Add Manual Diff / Slide Review NO; Basophils Absolute Auto 0 /uL (0-100); Basophils Percent Auto 1.1 % (0-2); Eosinophils Absolute Auto 100 /uL (0-450); Hematocrit 44.9 % (41-53); Hemoglobin 15.8 g/dL (13.5-17.5); Lymphocytes Absolute Auto 1200 /uL (1100-4500); Lymphocytes Percent Auto 38.3 % (25-40); Mean Corpuscular HGB Conc 35.1 % (30-36); Mean Corpuscular Hemoglobin 36.2 PG (26-34); Mean Corpuscular Volume 103.2 fL (80-100); Monocytes Absolute Auto 300 /uL (0-900); Monocytes Percent Auto 10.7 % (3-14); Neutrophils Absolute Auto 1600 /uL (1500-7000); Neutrophils Percent Auto 47.9 % (50-75); Platelet Count 55 X10^3/uL (150-400); Red Blood Cell Count 4.35 X10^6/uL (4.5-5.9); Red Cell Distribution Width 15.2 % (11.6-14.8); White Blood Cell Count 3.2 X10^3/uL (4.5-11.0)
[2020-04-20 13:40] LABS: Alanine Aminotransferase 155 IU/L (<50); Albumin 4.5 g/dL (3.5-5.0); Albumin Globulin Ratio 1.1 (1.0-2.8); Alkaline Phosphatase 97 U/L (38-126); Aspartate Aminotransferase 178 IU/L (17-59); BUN Creatinine Ratio 8.7 (6-22); Bilirubin Total 0.9 mg/dL (0.2-1.3); Blood Urea Nitrogen 6 mg/dL (9-20); Carbon Dioxide 31 mmol/L (22-32); Chloride 105 mmol/L (98-107); Estimated Glomerular Filt Rate > 60.0 mL/min (>60); Glucose 104 mg/dL (70-100); HEMOLYSIS < 15 (0-50); Potassium 3.9 mmol/L (3.4-5.1); Sodium 144 mmol/L (137-145); Total Protein 8.5 g/dL (6.3-8.2)
[2020-04-20 13:41] LABS: D Dimer 341 ng/mL (<230)
[2020-04-20 13:42] LABS: Creatine Kinase 208 U/L (55-170)
[2020-04-20 13:57] LABS: Creatine Kinase MB 2.15 ng/mL (<2.37)
[2020-04-20 14:15] LABS: Procalcitonin < 0.05 ng/mL (<0.5)
[2020-04-20 14:28] LABS: NT-proBNP (BNP-Adult 18+) 21 pg/mL (<125)
--- NOTE | 2020-04-20 14:32 | DI.CT.S_ITS ---
PROCEDURE: CT ANGIO CHEST PE PROTOCOL INDICATIONS: SOB, coughing of brown mucus, elevated D-dimer TECHNIQUE: After the administration of intravenous contrast, 2 mm thick sections acquired from the pulmonary apices to the posterior costophrenic angles. 3-dimensional maximum intensity projection (MIP) coronal and sagittal reformats were then acquired through the thorax. For radiation dose reduction, the following was used: automated exposure control, adjustment of mA and/or kV according to patient size. COMPARISON: [facility], CT, CT ABDOMEN PELVIS W CON, 12/11/2019, 12:48. [facility], CT, CT ANGIO CHEST PE PROTOCOL, 12/11/2019, 12:48. FINDINGS: Image quality: Excellent. Pulmonary arteries: Pulmonary arteries are normal in size, and demonstrate no intraluminal filling defects to suggest central pulmonary embolism. Lungs and pleura: Lungs are clear. No pleural effusions or pneumothorax. Central and peripheral airways are patent. Mediastinum: Heart size is normal, without pericardial effusion. No mediastinal or hilar adenopathy. Thoracic aorta is normal in caliber and enhancement. Esophagus is normal in caliber, without hiatal hernia. Bones and chest wall: No suspicious bony lesions. Ribs and thoracic spine appear intact throughout. Thyroid gland is unremarkable. No axillary or supraclavicular adenopathy. Abdomen: Hepatomegaly, diffuse hepatic steatosis. Benign-appearing hepatic calcifications. Surface nodularity is consistent with cirrhotic change. Splenomegaly. Horseshoe kidney IMPRESSION: 1. No evidence acute pulmonary emboli. 2. No evidence acute pulmonary process. 3. Cirrhosis, hepatomegaly, diffuse hepatic steatosis. 4. Splenomegaly. 5. Incidental note is made of the presence of a horseshoe kidney. Dictated by: Vasu Mcnair M.D. on 04/20/2020 at 14:38 Approved by: Vasu Mcnair M.D. on 04/20/2020 at 14:45
[2020-04-20] MEDS: SODIUM CHLORIDE 0.9% 1,000 ML 1000 ML IV (15:18)
[2020-04-20 16:12] VITALS: BP 147/77; PULSE 84; RESP 21; O2SAT 97
[2020-04-20 16:33] LABS: Troponin I 0.038 ng/mL (0.01-0.034)
[2020-04-21 08:44] LABS: COVID19 Sendout NOT DETECTED (Not Detect)
== END 2020-04-20 17:05 | disposition home or self-care (01) ==
PROVIDERS: Emergency Medicine; Emergency Provider Nurse Practitioner; Family Provider Family Medicine; PCP Family Medicine
DX: R06.02 Shortness of breath (principal); F10.10 Alcohol abuse, uncomplicated; R05 Cough
CPT/HCPCS: 36415; 71046; 71275; 80053; 82550; 82553; 83605; 83880; 84145; 84484; 85025; 85379; 87635; 93005; 93010; 96360; 99284; Q9967

== ENCOUNTER 2020-09-13 16:43 | Inpatient (IN) | payer OTHER, MEDICAID, SELFPAY ==
[2020-09-13] VITALS (14 sets, daily range): BP systolic 129–181; BP diastolic 64–122; PULSE 80–100; RESP 12–32; TEMP 36.4; O2SAT 91–99; BMI 43.4
--- NOTE | 2020-09-13 17:17 | DI.RAD.S_ITS ---
PROCEDURE: XR CHEST 2V INDICATIONS: shortness of breath TECHNIQUE: 2 views of the chest were acquired. COMPARISON: [facility], CT, CT ANGIO CHEST PE PROTOCOL, 12/11/2019, 12:48. [facility], CR, XR CHEST 1V, 12/27/2019, 1:04. [facility], CR, XR CHEST 2V, 04/20/2020, 12:59. FINDINGS: Surgical changes and devices: None. Lungs and pleura: An incomplete inspiratory result is noted, causing a crowded appearance to the lung markings. No pneumothorax or significant pleural effusions are seen. Mild, streaky opacities are seen at the lung bases. Mediastinum: Mediastinal contours are normal. Heart size is normal. Bones and chest wall: No suspicious bony abnormalities. Age-appropriate bony degenerative changes are seen. Soft tissues appear unremarkable. IMPRESSION: Low lung volumes with presumed atelectasis at the lung bases. If clinically appropriate, a short-term followup chest series (with PA and lateral views) performed in deep inspiration is suggested for further evaluation. Dictated by: Jamaal Barlow M.D. on 09/13/2020 at 16:40 Approved by: Jamaal Barlow M.D. on 09/13/2020 at 16:41
[2020-09-13 17:30] LABS: Basophils Absolute Auto 0 /uL (0-100); Basophils Percent Auto 1.1 % (0-2); Eosinophils Absolute Auto 0 /uL (0-450); Eosinophils Percent Auto 0.5 % (2-4); Hematocrit 44.7 % (41-53); Hemoglobin 15.5 g/dL (13.5-17.5); Lymphocytes Absolute Auto 900 /uL (1100-4500); Lymphocytes Percent Auto 25.4 % (25-40); Mean Corpuscular HGB Conc 34.7 % (30-36); Mean Corpuscular Hemoglobin 36.2 PG (26-34); Mean Corpuscular Volume 104.2 fL (80-100); Monocytes Absolute Auto 400 /uL (0-900); Monocytes Percent Auto 10.2 % (3-14); Neutrophils Absolute Auto 2200 /uL (1500-7000); Neutrophils Percent Auto 62.8 % (50-75); Red Blood Cell Count 4.29 X10^6/uL (4.5-5.9); Red Cell Distribution Width 13.5 % (11.6-14.8); White Blood Cell Count 3.5 X10^3/uL (4.5-11.0)
[2020-09-13 17:31] LABS: Alanine Aminotransferase 103 IU/L (<50); Albumin 4.4 g/dL (3.5-5.0); Albumin Globulin Ratio 0.9 (1.0-2.8); Alkaline Phosphatase 163 U/L (38-126); Aspartate Aminotransferase 267 IU/L (17-59); BUN Creatinine Ratio 8.7 (6-22); Bilirubin Total 2.4 mg/dL (0.2-1.3); Blood Urea Nitrogen 6 mg/dL (9-20); Calcium 8.8 mg/dL (8.4-10.2); Carbon Dioxide 30 mmol/L (22-32); Chloride 100 mmol/L (98-107); Estimated Glomerular Filt Rate > 60.0 mL/min (>60); Globulin 4.7 g/dL (1.7-4.1); Glucose 125 mg/dL (70-100); HEMOLYSIS < 15 (0-50); Potassium 3.2 mmol/L (3.4-5.1); Sodium 143 mmol/L (137-145); Total Protein 9.1 g/dL (6.3-8.2)
[2020-09-13 17:32] LABS: Lactate (Lactic Acid) 2.8 mmol/L (0.7-2.1)
[2020-09-13 17:39] LABS: Add Manual Diff / Slide Review SLIDE REVIEW; Platelet Count 38 X10^3/uL (150-400)
--- NOTE | 2020-09-13 17:48 | ED_ITS ---
HPI - SOB/Dyspnea <Berna Salazar DO - Last Filed: 09/18/20 08:22> General Chief Complaint: Shortness of Breath/Dyspnea Stated Complaint: feels terrible Time Seen by Provider: 09/13/20 17:17 Source: patient Mode of arrival: Wheelchair Limitations: no limitations History of Present Illness HPI Narrative: This is a 54-year-old male who states he came in today because he feels ?sick?. Patient states he is concerned that he could have coving he states he does not have any known exposures but he has been traveling in [place] and other areas locally. He states for the last month he has had intermittent nose bleeds and felt short of breath, he has been quite nauseated but denies any vomiting he has had melanotic stools and describes diarrhea intermittently. He states he has had sores on his skin that will heal although he also states that he has been picking at them. He denies any hemoptysis. Denies any syncope. He denies any chest pain or pressure. He has felt increasingly weak and needed assistance today to get into the hospital [facility] [place]. He states he fell 2 days ago and denies hitting his head but that he was not able to get off the floor without some assistance. Patient states that he has been feeling shaky. He denies any current medications and does not think that he is supposed to be taking any, he states he has had 2 hernia repairs. He smokes half pack per day of tobacco, drinks a 5th a day in tells me his last drink was this morning although his sister who is at bedside states it was about an hour and half ago. He states he smokes a lot of marijuana and he used to use Percocet up to 80 tablets a month but stopped in November. Related Data Home Medications Medication Instructions Recorded Confirmed citalopram [Celexa] 10 mg PO DAILY 09/14/20 09/14/20 hydroxyzine HCl 10 mg DAILY 09/14/20 09/14/20 sildenafil 50 mg PO DAILY 09/14/20 09/14/20 Allergies Allergy/AdvReac Type Severity Reaction Status Date / Time Penicillins [PENICILLINS] Allergy Unknown Verified 09/13/20 16:57 Review of Systems <DO Christa David Last Filed: 09/18/20 08:22> Review of Systems ROS Unobtainable: All systems reviewed & are unremarkable except as noted in HPI and below Patient History <Berna Salazar DO - Last Filed: 09/18/20 08:22> Medical History Headache (Chronic) Hearing loss (Chronic) Hepatitis C (Acute) Vision disorder (Chronic) Surgical History Hiatal hernia (Resolved) Periumbilical hernia (Resolved) Family History Father History of heart disease Mother Cancer Social History household members: none Smoking Status: Current every day smoker Tobacco: How many years used: 39 alcohol intake: current substance use type: marijuana Smoking Status: Current every day smoker alcohol intake frequency: 3 or more drinks per day Alcohol type: beer and hard liquor Substance Use Type: former substance user and marijuana Exam <Berna Salazar DO - Last Filed: 09/18/20 08:22> Narrative Exam Narrative: GEN: Obese male, alert and oriented, patient appears to be in moderate distress. Patient required quite a bit of assistance from nursing to get into the bed. HEENT: Atraumatic, pupils are equal round reactive to light, extraocular movements are intact, nares show some mild dried blood,, TMs are clear with no fluid, there is no conjunctival pallor. Throat is clear without any exudates, erythema, tonsillar enlargement or uvular deviation HEART: Regular rate and rhythm without murmur, clicks, rubs. Pulses are equal in upper and lower extremities LUNGS:Lungs clear to auscultation, no wheezes, rales, crackles, chest moves symmetrically, no tachypnea accessory muscle use. Patient is able to speak in full sentences. ABD:bowel sounds normal, soft, non-tender, no guarding, rebound, rigidity, no masses noted, no hepatosplenomegaly :No CVA tenderness MSCL: Non-tender, no muscle atrophy, full range of motion of upper extremities. NEURO:CN 2-12 intact, sensation normal, patient has mild generalized tremor. SKIN: Patient has what appears to be an area of skin picking on his right rhomboid region does not appear to be infected. Initial Vital Signs Initial Vital Signs: Vital Signs Temperature 97.6 F 09/13/20 16:50 Pulse Rate 95 H 09/13/20 16:50 Respiratory Rate 12 09/13/20 16:50 Blood Pressure 171/100 H 09/13/20 16:50 Pulse Oximetry 94 09/13/20 16:50 <Gita Mcclain MD - Last Filed: 09/14/20 00:45> Initial Vital Signs Initial Vital Signs: Vital Signs Temperature 97.6 F 09/13/20 16:50 Pulse Rate 95 H 09/13/20 16:50 Respiratory Rate 12 09/13/20 16:50 Blood Pressure 171/100 H 09/13/20 16:50 Pulse Oximetry 94 09/13/20 16:50 Course <Berna Salazar DO - Last Filed: 09/18/20 08:22> Orders Ordered: Acetaminophen (Tylenol) 650 mg PO Q6HR PRN PRN Reason: Fever Last Admin: 09/16/20 22:44 Dose: 650 mg Documented by: Admin: 09/14/20 22:42 Dose: 650 mg Documented by: Admin: 09/14/20 18:43 Dose: 650 mg Documented by: MARCIANO Hydrocodone Bitart/Acetaminophen ([place] 5/325) 1 tab PO Q4HR PRN PRN Reason: Pain, Moderate (4-6) Last Admin: 09/17/20 20:57 Dose: 1 tab Documented by: Admin: 09/17/20 15:16 Dose: 1 tab Documented by: Admin: 09/17/20 12:08 Dose: 1 tab Documented by: Admin: 09/16/20 12:21 Dose: 1 tab Documented by: Admin: 09/16/20 08:12 Dose: 1 tab Documented by: JATIN Citalopram Hydrobromide (Celexa) 10 mg PO DAILY [facility] Last Admin: 09/17/20 12:09 Dose: 10 mg Documented by: Admin: 09/16/20 08:12 Dose: 10 mg Documented by: Admin: 09/15/20 08:05 Dose: 10 mg Documented by: Admin: 09/14/20 12:28 Dose: 10 mg Documented by: CECE Docusate Sodium (Colace) 100 mg PO BID PRN PRN Reason: constipation Last Admin: 09/17/20 12:09 Dose: 100 mg Documented by: Admin: 09/16/20 08:12 Dose: 100 mg Documented by: Admin: 09/15/20 08:50 Dose: 100 mg Documented by: CECE Fentanyl (Sublimaze) 100 mcg IV Q1HR PRN PRN Reason: Pain, Severe (7-10) Folic Acid (Folic Acid) 1 mg PO DAILY [facility] Last Admin: 09/17/20 12:09 Dose: 1 mg Documented by: Admin: 09/16/20 08:11 Dose: 1 mg Documented by: Admin: 09/15/20 08:05 Dose: 1 mg Documented by: Admin: 09/14/20 08:17 Dose: 1 mg Documented by: CECE Haloperidol (Haldol) 2 mg IV Q1HR PRN PRN Reason: Hallucinations Levofloxacin (Levaquin) 750 mg in 150 mls @ 100 mls/hr IV Q24H [facility] Last Infusion: 09/18/20 07:23 Dose: 0 mls/hr Documented by: Admin: 09/17/20 22:01 Dose: 100 mls/hr Documented by: Infusion: 09/17/20 00:24 Dose: 0 mls/hr Documented by: Admin: 09/16/20 22:44 Dose: 100 mls/hr Documented by: Infusion: 09/15/20 23:43 Dose: 0 mls/hr Documented by: Admin: 09/15/20 21:49 Dose: 100 mls/hr Documented by: Infusion: 09/15/20 02:23 Dose: 0 mls/hr Documented by: Admin: 09/14/20 23:26 Dose: 100 mls/hr Documented by: KD Potassium Chloride/Sodium Chloride (Ns With Kcl 20 Meq) 1,000 mls @ 75 mls/hr IV CONT [facility] Last Admin: 09/18/20 05:20 Dose: 75 mls/hr Documented by: Infusion: 09/18/20 05:20 Dose: 75 mls/hr Documented by: Admin: 09/17/20 16:15 Dose: 75 mls/hr Documented by: COREY Lorazepam (Ativan) 2 mg 0.02 mg/kg (2 mg) IV Q15MIN PRN PRN Reason: anxiety Last Admin: 09/17/20 18:38 Dose: 2 mg Documented by: Admin: 09/16/20 01:24 Dose: 2 mg Documented by: Admin: 09/15/20 11:22 Dose: 2 mg Documented by: Admin: 09/15/20 08:50 Dose: 2 mg Documented by: Admin: 09/14/20 20:53 Dose: 2 mg Documented by: Admin: 09/14/20 17:43 Dose: 2 mg Documented by: MARCIANO Lorazepam (Ativan) 0 mg IV CIWAPRN PRN; Protocol PRN Reason: Alcohol Withdrawal Last Admin: 09/17/20 06:18 Dose: 2 mg Documented by: Admin: 09/17/20 00:28 Dose: 2 mg Documented by: Admin: 09/16/20 21:03 Dose: 4 mg Documented by: Admin: 09/16/20 17:08 Dose: 4 mg Documented by: Admin: 09/16/20 15:53 Dose: 4 mg Documented by: Admin: 09/16/20 12:20 Dose: 4 mg Documented by: Admin: 09/16/20 05:29 Dose: 4 mg Documented by: Admin: 09/16/20 00:46 Dose: 4 mg Documented by: Admin: 09/15/20 21:50 Dose: 4 mg Documented by: Admin: 09/15/20 19:47 Dose: 4 mg Documented by: Admin: 09/15/20 18:52 Dose: 4 mg Documented by: Admin: 09/15/20 17:22 Dose: 4 mg Documented by: Admin: 09/15/20 16:03 Dose: 4 mg Documented by: Admin: 09/15/20 13:02 Dose: 4 mg Documented by: Admin: 09/15/20 12:08 Dose: 4 mg Documented by: Admin: 09/15/20 08:04 Dose: 2 mg Documented by: Admin: 09/15/20 05:29 Dose: 4 mg Documented by: Admin: 09/15/20 04:22 Dose: 4 mg Documented by: Admin: 09/15/20 02:27 Dose: 4 mg Documented by: Admin: 09/14/20 23:24 Dose: 4 mg Documented by: Admin: 09/14/20 16:58 Dose: 4 mg Documented by: Admin: 09/14/20 16:17 Dose: 4 mg Documented by: MARCIANO Magnesium Chloride (Slow-Mag) 64 mg PO DAILY [facility] Last Admin: 09/17/20 16:16 Dose: 64 mg Documented by: COREY Metoprolol Tartrate (Lopressor) 25 mg PO BID [facility] Last Admin: 09/17/20 20:57 Dose: 25 mg Documented by: Admin: 09/17/20 13:49 Dose: 25 mg Documented by: JATIN Morphine Sulfate (Morphine) 2 mg IV Q4HR PRN PRN Reason: pain Last Admin: 09/17/20 18:53 Dose: 2 mg Documented by: Admin: 09/16/20 01:25 Dose: 2 mg Documented by: DAVID Multivitamins (Tab-A-Fidelia) 1 tab PO DAILY [facility] Last Admin: 09/17/20 12:09 Dose: 1 tab Documented by: Admin: 09/16/20 08:11 Dose: 1 tab Documented by: Admin: 09/15/20 08:05 Dose: 1 tab Documented by: Admin: 09/14/20 08:17 Dose: 1 tab Documented by: CECE Naloxone HCl (Narcan) 0.2 mg IV Q2MIN PRN PRN Reason: Opiate Reversal Nicotine (Nicoderm) 14 mg TOP DAILY [facility] Last Admin: 09/17/20 12:08 Dose: 14 mg Documented by: Admin: 09/16/20 08:11 Dose: 14 mg Documented by: Admin: 09/15/20 08:04 Dose: 14 mg Documented by: CECE Ondansetron HCl (Zofran) 4 mg IV Q6HR PRN PRN Reason: Nausea And Vomiting Last Admin: 09/15/20 12:08 Dose: 4 mg Documented by: CECE Pantoprazole Sodium (Protonix) 40 mg IV BID [facility] Last Admin: 09/17/20 20:57 Dose: 40 mg Documented by: Admin: 09/17/20 12:10 Dose: 40 mg Documented by: Admin: 09/16/20 20:47 Dose: 40 mg Documented by: Admin: 09/16/20 08:11 Dose: 40 mg Documented by: Admin: 09/15/20 20:42 Dose: 40 mg Documented by: Admin: 09/15/20 08:05 Dose: 40 mg Documented by: Admin: 09/14/20 20:53 Dose: 40 mg Documented by: Admin: 09/14/20 12:28 Dose: 40 mg Documented by: CECE Polyethylene Glycol (Miralax) 17 gm PO DAILY [facility] Last Admin: 09/17/20 12:08 Dose: 17 gm Documented by: Admin: 09/16/20 08:11 Dose: 17 gm Documented by: Admin: 09/15/20 09:02 Dose: 17 gm Documented by: CECE Discontinued Medications Magnesium Sulfate 2 gm/ Folic Acid 1 mg/ Thiamine HCl 100 mg / Multivitamins 10 ml/ Sodium Chloride 1,015.2 mls @ 125 mls/hr IV NOW ONE Stop: 09/14/20 04:45 Last Infusion: 09/14/20 08:11 Dose: 0 mls/hr Documented by: Admin: 09/13/20 21:46 Dose: 125 mls/hr Documented by: FELIPE Lactated Ringer's (Lactated Ringers) 1,000 mls @ 300 mls/hr IV CONT [facility] Last Infusion: 09/15/20 08:51 Dose: 0 mls/hr Documented by: Admin: 09/15/20 06:11 Dose: 300 mls/hr Documented by: Infusion: 09/15/20 05:59 Dose: 300 mls/hr Documented by: Admin: 09/15/20 02:39 Dose: 300 mls/hr Documented by: Infusion: 09/15/20 01:49 Dose: 300 mls/hr Documented by: Admin: 09/14/20 22:29 Dose: 300 mls/hr Documented by: Infusion: 09/14/20 21:47 Dose: 300 mls/hr Documented by: Admin: 09/14/20 18:27 Dose: 300 mls/hr Documented by: Infusion: 09/14/20 18:27 Dose: 300 mls/hr Documented by: Admin: 09/14/20 15:22 Dose: 300 mls/hr Documented by: Infusion: 09/14/20 14:28 Dose: 300 mls/hr Documented by: Admin: 09/14/20 11:08 Dose: 300 mls/hr Documented by: Infusion: 09/14/20 11:08 Dose: 300 mls/hr Documented by: Admin: 09/14/20 08:17 Dose: 300 mls/hr Documented by: Infusion: 09/14/20 06:43 Dose: 300 mls/hr Documented by: Admin: 09/14/20 03:23 Dose: 300 mls/hr Documented by: KD Magnesium Sulfate (Magnesium Sulfate) 2 gm in 50 mls @ 25 mls/hr IV NOW ONE Stop: 09/15/20 10:25 Last Infusion: 09/15/20 11:00 Dose: 0 mls/hr Documented by: CECE Cosigned by: SARAH Admin: 09/15/20 08:53 Dose: 25 mls/hr Documented by: CECE Cosigned by: SARAH Potassium Phosphate 15 mmol/ (Dextrose) 255 mls @ 63.75 mls/hr IV NOW ONE Stop: 09/15/20 12:44 Last Infusion: 09/15/20 13:00 Dose: 0 mls/hr Documented by: Admin: 09/15/20 08:52 Dose: 63.75 mls/hr Documented by: CECE Sodium Chloride (Normal Saline 0.45%) 1,000 mls @ 125 mls/hr IV CONT [facility] Last Admin: 09/15/20 08:51 Dose: 125 mls/hr Documented by: CECE Potassium Chloride 20 meq/ (Sodium Chloride) 1,010 mls @ 75 mls/hr IV CONT [facility] Last Infusion: 09/17/20 16:29 Dose: 0 mls/hr Documented by: COREY Cosigned by: ISAIAH Admin: 09/17/20 07:51 Dose: 75 mls/hr Documented by: JATIN Cosigned by: SARAH Infusion: 09/17/20 07:51 Dose: 75 mls/hr Documented by: JATIN Cosigned by: SARAH Admin: 09/16/20 18:22 Dose: 75 mls/hr Documented by: MILEY Cosigned by: SARAH Infusion: 09/16/20 15:56 Dose: 75 mls/hr Documented by: MILEY Cosigned by: SARAH Admin: 09/16/20 08:10 Dose: 150 mls/hr Documented by: JATIN Cosigned by: SARAH Infusion: 09/16/20 08:08 Dose: 150 mls/hr Documented by: JATIN Cosigned by: SARAH Admin: 09/16/20 01:24 Dose: 150 mls/hr Documented by: DAVID Cosigned by: [email or web address] Infusion: 09/15/20 23:08 Dose: 150 mls/hr Documented by: DAVID Cosigned by: [email or web address] Infusion: 09/15/20 19:20 Dose: 150 mls/hr Documented by: COREY Cosigned by: MILEY Admin: 09/15/20 15:48 Dose: 125 mls/hr Documented by: COREY Cosigned by: MILEY Magnesium Sulfate (Magnesium Sulfate) 2 gm in 50 mls @ 25 mls/hr IV NOW ONE Stop: 09/16/20 09:57 Last Infusion: 09/16/20 12:21 Dose: 0 mls/hr Documented by: JATIN Cosigned by: SARAH Admin: 09/16/20 08:29 Dose: 25 mls/hr Documented by: JATIN Cosigned by: SARAH Influenza Virus Vaccine (Flu Vaccine) 0.5 ml IM .ONCE ONE Stop: 09/14/20 09:01 Last Admin: 09/14/20 10:12 Dose: 0.5 ml Documented by: CECE Lorazepam (Ativan) 2 mg IV NOW ONE Stop: 09/13/20 23:25 Last Admin: 09/13/20 23:48 Dose: 2 mg Documented by: ROOSEVELT Lorazepam (Ativan) 0 mg IV CIWAPRN PRN; Protocol PRN Reason: Alcohol Withdrawal Last Admin: 09/14/20 13:05 Dose: 2 mg Documented by: Admin: 09/14/20 12:32 Dose: 2 mg Documented by: Admin: 09/14/20 10:12 Dose: 1 mg Documented by: Admin: 09/14/20 08:17 Dose: 1 mg Documented by: Admin: 09/14/20 04:58 Dose: 1 mg Documented by: Admin: 09/14/20 01:56 Dose: 1 mg Documented by: KD Lorazepam (Ativan) 4 mg IV CIWAPRN PRN; Protocol PRN Reason: Alcohol Withdrawal Last Admin: 09/14/20 15:35 Dose: 4 mg Documented by: Admin: 09/14/20 14:38 Dose: 2 mg Documented by: Admin: 09/14/20 13:34 Dose: 4 mg Documented by: CECE Nicotine (Nicoderm) 14 mg TOP NOW ONE Stop: 09/13/20 23:25 Last Admin: 09/14/20 01:34 Dose: Not Given Documented by: KD Nicotine (Nicoderm) 14 mg TOP NOW ONE Stop: 09/14/20 01:34 Last Admin: 09/14/20 01:45 Dose: 14 mg Documented by: KD Phytonadione (Mephyton) 10 mg PO NOW [facility] Stop: 09/17/20 11:29 Last Admin: 09/14/20 12:28 Dose: 10 mg Documented by: CECE Phytonadione (Mephyton) 10 mg PO DAILY [facility] Stop: 09/17/20 08:59 Last Admin: 09/16/20 08:12 Dose: 10 mg Documented by: Admin: 09/15/20 08:51 Dose: 10 mg Documented by: CECE Potassium Chloride (Potassium Chloride) 40 meq PO NOW ONE Stop: 09/14/20 00:32 Last Admin: 09/14/20 01:09 Dose: 40 meq Documented by: KD Potassium Chloride (Klor-Con M20) 40 meq PO NOW ONE Stop: 09/15/20 08:27 Last Admin: 09/15/20 09:01 Dose: 40 meq Documented by: CECE Potassium Chloride (Klor-Con M20) 20 meq PO NOW ONE Stop: 09/15/20 15:07 Last Admin: 09/15/20 15:46 Dose: 20 meq Documented by: COREY Potassium Chloride (Klor-Con M20) 40 meq PO NOW ONE Stop: 09/16/20 09:02 Last Admin: 09/16/20 09:37 Dose: 40 meq Documented by: JATIN Thiamine HCl (Vitamin B-1) 100 mg PO DAILY [facility] Stop: 09/17/20 09:01 Last Admin: 09/17/20 13:49 Dose: 100 mg Documented by: Admin: 09/16/20 08:12 Dose: 100 mg Documented by: Admin: 09/15/20 08:05 Dose: 100 mg Documented by: Admin: 09/14/20 08:17 Dose: 100 mg Documented by: CECE Vital Signs Vital signs: Vital Signs - 8 hr 09/13/20 16:50 09/13/20 18:39 09/13/20 19:00 Temperature 97.6 F Pulse Rate 95 H 85 85 Respiratory Rate 12 18 21 Blood Pressure 171/100 H 148/90 H Pulse Oximetry 94 99 98 09/13/20 19:30 09/13/20 20:00 09/13/20 20:30 Temperature Pulse Rate 100 H 91 H 95 H Respiratory Rate 32 H 26 H 29 H Blood Pressure Pulse Oximetry 95 98 94 09/13/20 21:00 09/13/20 21:30 09/13/20 21:52 Temperature Pulse Rate 94 H 96 H 95 H Respiratory Rate 25 H 23 20 Blood Pressure 181/108 H Pulse Oximetry 91 91 94 <Gita Mcclain MD - Last Filed: 09/14/20 00:45> Orders Ordered: Acetaminophen (Tylenol) 650 mg PO Q6HR PRN PRN Reason: Fever Last Admin: 09/16/20 22:44 Dose: 650 mg Documented by: Admin: 09/14/20 22:42 Dose: 650 mg Documented by: Admin: 09/14/20 18:43 Dose: 650 mg Documented by: MARCIANO Hydrocodone Bitart/Acetaminophen ([place] 5/325) 1 tab PO Q4HR PRN PRN Reason: Pain, Moderate (4-6) Last Admin: 09/17/20 20:57 Dose: 1 tab Documented by: Admin: 09/17/20 15:16 Dose: 1 tab Documented by: Admin: 09/17/20 12:08 Dose: 1 tab Documented by: Admin: 09/16/20 12:21 Dose: 1 tab Documented by: Admin: 09/16/20 08:12 Dose: 1 tab Documented by: JATIN Citalopram Hydrobromide (Celexa) 10 mg PO DAILY [facility] Last Admin: 09/17/20 12:09 Dose: 10 mg Documented by: Admin: 09/16/20 08:12 Dose: 10 mg Documented by: Admin: 09/15/20 08:05 Dose: 10 mg Documented by: Admin: 09/14/20 12:28 Dose: 10 mg Documented by: CECE Docusate Sodium (Colace) 100 mg PO BID PRN PRN Reason: constipation Last Admin: 09/17/20 12:09 Dose: 100 mg Documented by: Admin: 09/16/20 08:12 Dose: 100 mg Documented by: Admin: 09/15/20 08:50 Dose: 100 mg Documented by: CECE Fentanyl (Sublimaze) 100 mcg IV Q1HR PRN PRN Reason: Pain, Severe (7-10) Folic Acid (Folic Acid) 1 mg PO DAILY [facility] Last Admin: 09/17/20 12:09 Dose: 1 mg Documented by: Admin: 09/16/20 08:11 Dose: 1 mg Documented by: Admin: 09/15/20 08:05 Dose: 1 mg Documented by: Admin: 09/14/20 08:17 Dose: 1 mg Documented by: CECE Haloperidol (Haldol) 2 mg IV Q1HR PRN PRN Reason: Hallucinations Levofloxacin (Levaquin) 750 mg in 150 mls @ 100 mls/hr IV Q24H [facility] Last Infusion: 09/18/20 07:23 Dose: 0 mls/hr Documented by: Admin: 09/17/20 22:01 Dose: 100 mls/hr Documented by: Infusion: 09/17/20 00:24 Dose: 0 mls/hr Documented by: Admin: 09/16/20 22:44 Dose: 100 mls/hr Documented by: Infusion: 09/15/20 23:43 Dose: 0 mls/hr Documented by: Admin: 09/15/20 21:49 Dose: 100 mls/hr Documented by: Infusion: 09/15/20 02:23 Dose: 0 mls/hr Documented by: Admin: 09/14/20 23:26 Dose: 100 mls/hr Documented by: KD Potassium Chloride/Sodium Chloride (Ns With Kcl 20 Meq) 1,000 mls @ 75 mls/hr IV CONT [facility] Last Admin: 09/18/20 05:20 Dose: 75 mls/hr Documented by: Infusion: 09/18/20 05:20 Dose: 75 mls/hr Documented by: Admin: 09/17/20 16:15 Dose: 75 mls/hr Documented by: COREY Lorazepam (Ativan) 2 mg 0.02 mg/kg (2 mg) IV Q15MIN PRN PRN Reason: anxiety Last Admin: 09/17/20 18:38 Dose: 2 mg Documented by: Admin: 09/16/20 01:24 Dose: 2 mg Documented by: Admin: 09/15/20 11:22 Dose: 2 mg Documented by: Admin: 09/15/20 08:50 Dose: 2 mg Documented by: Admin: 09/14/20 20:53 Dose: 2 mg Documented by: Admin: 09/14/20 17:43 Dose: 2 mg Documented by: MARCIANO Lorazepam (Ativan) 0 mg IV CIWAPRN PRN; Protocol PRN Reason: Alcohol Withdrawal Last Admin: 09/17/20 06:18 Dose: 2 mg Documented by: Admin: 09/17/20 00:28 Dose: 2 mg Documented by: Admin: 09/16/20 21:03 Dose: 4 mg Documented by: Admin: 09/16/20 17:08 Dose: 4 mg Documented by: Admin: 09/16/20 15:53 Dose: 4 mg Documented by: Admin: 09/16/20 12:20 Dose: 4 mg Documented by: Admin: 09/16/20 05:29 Dose: 4 mg Documented by: Admin: 09/16/20 00:46 Dose: 4 mg Documented by: Admin: 09/15/20 21:50 Dose: 4 mg Documented by: Admin: 09/15/20 19:47 Dose: 4 mg Documented by: Admin: 09/15/20 18:52 Dose: 4 mg Documented by: Admin: 09/15/20 17:22 Dose: 4 mg Documented by: Admin: 09/15/20 16:03 Dose: 4 mg Documented by: Admin: 09/15/20 13:02 Dose: 4 mg Documented by: Admin: 09/15/20 12:08 Dose: 4 mg Documented by: Admin: 09/15/20 08:04 Dose: 2 mg Documented by: Admin: 09/15/20 05:29 Dose: 4 mg Documented by: Admin: 09/15/20 04:22 Dose: 4 mg Documented by: Admin: 09/15/20 02:27 Dose: 4 mg Documented by: Admin: 09/14/20 23:24 Dose: 4 mg Documented by: Admin: 09/14/20 16:58 Dose: 4 mg Documented by: Admin: 09/14/20 16:17 Dose: 4 mg Documented by: MARCIANO Magnesium Chloride (Slow-Mag) 64 mg PO DAILY [facility] Last Admin: 09/17/20 16:16 Dose: 64 mg Documented by: COREY Metoprolol Tartrate (Lopressor) 25 mg PO BID [facility] Last Admin: 09/17/20 20:57 Dose: 25 mg Documented by: Admin: 09/17/20 13:49 Dose: 25 mg Documented by: JATIN Morphine Sulfate (Morphine) 2 mg IV Q4HR PRN PRN Reason: pain Last Admin: 09/17/20 18:53 Dose: 2 mg Documented by: Admin: 09/16/20 01:25 Dose: 2 mg Documented by: DAVID Multivitamins (Tab-A-Fidelia) 1 tab PO DAILY [facility] Last Admin: 09/17/20 12:09 Dose: 1 tab Documented by: Admin: 09/16/20 08:11 Dose: 1 tab Documented by: Admin: 09/15/20 08:05 Dose: 1 tab Documented by: Admin: 09/14/20 08:17 Dose: 1 tab Documented by: CECE Naloxone HCl (Narcan) 0.2 mg IV Q2MIN PRN PRN Reason: Opiate Reversal Nicotine (Nicoderm) 14 mg TOP DAILY [facility] Last Admin: 09/17/20 12:08 Dose: 14 mg Documented by: Admin: 09/16/20 08:11 Dose: 14 mg Documented by: Admin: 09/15/20 08:04 Dose: 14 mg Documented by: CECE Ondansetron HCl (Zofran) 4 mg IV Q6HR PRN PRN Reason: Nausea And Vomiting Last Admin: 09/15/20 12:08 Dose: 4 mg Documented by: CECE Pantoprazole Sodium (Protonix) 40 mg IV BID [facility] Last Admin: 09/17/20 20:57 Dose: 40 mg Documented by: Admin: 09/17/20 12:10 Dose: 40 mg Documented by: Admin: 09/16/20 20:47 Dose: 40 mg Documented by: Admin: 09/16/20 08:11 Dose: 40 mg Documented by: Admin: 09/15/20 20:42 Dose: 40 mg Documented by: Admin: 09/15/20 08:05 Dose: 40 mg Documented by: Admin: 09/14/20 20:53 Dose: 40 mg Documented by: Admin: 09/14/20 12:28 Dose: 40 mg Documented by: CECE Polyethylene Glycol (Miralax) 17 gm PO DAILY [facility] Last Admin: 09/17/20 12:08 Dose: 17 gm Documented by: Admin: 09/16/20 08:11 Dose: 17 gm Documented by: Admin: 09/15/20 09:02 Dose: 17 gm Documented by: CECE Discontinued Medications Magnesium Sulfate 2 gm/ Folic Acid 1 mg/ Thiamine HCl 100 mg / Multivitamins 10 ml/ Sodium Chloride 1,015.2 mls @ 125 mls/hr IV NOW ONE Stop: 09/14/20 04:45 Last Infusion: 09/14/20 08:11 Dose: 0 mls/hr Documented by: Admin: 09/13/20 21:46 Dose: 125 mls/hr Documented by: FELIPE Lactated Ringer's (Lactated Ringers) 1,000 mls @ 300 mls/hr IV CONT [facility] Last Infusion: 09/15/20 08:51 Dose: 0 mls/hr Documented by: Admin: 09/15/20 06:11 Dose: 300 mls/hr Documented by: Infusion: 09/15/20 05:59 Dose: 300 mls/hr Documented by: Admin: 09/15/20 02:39 Dose: 300 mls/hr Documented by: Infusion: 09/15/20 01:49 Dose: 300 mls/hr Documented by: Admin: 09/14/20 22:29 Dose: 300 mls/hr Documented by: Infusion: 09/14/20 21:47 Dose: 300 mls/hr Documented by: Admin: 09/14/20 18:27 Dose: 300 mls/hr Documented by: Infusion: 09/14/20 18:27 Dose: 300 mls/hr Documented by: Admin: 09/14/20 15:22 Dose: 300 mls/hr Documented by: Infusion: 09/14/20 14:28 Dose: 300 mls/hr Documented by: Admin: 09/14/20 11:08 Dose: 300 mls/hr Documented by: Infusion: 09/14/20 11:08 Dose: 300 mls/hr Documented by: Admin: 09/14/20 08:17 Dose: 300 mls/hr Documented by: Infusion: 09/14/20 06:43 Dose: 300 mls/hr Documented by: Admin: 09/14/20 03:23 Dose: 300 mls/hr Documented by: KD Magnesium Sulfate (Magnesium Sulfate) 2 gm in 50 mls @ 25 mls/hr IV NOW ONE Stop: 09/15/20 10:25 Last Infusion: 09/15/20 11:00 Dose: 0 mls/hr Documented by: CECE Cosigned by: SARAH Admin: 09/15/20 08:53 Dose: 25 mls/hr Documented by: CECE Cosigned by: SARAH Potassium Phosphate 15 mmol/ (Dextrose) 255 mls @ 63.75 mls/hr IV NOW ONE Stop: 09/15/20 12:44 Last Infusion: 09/15/20 13:00 Dose: 0 mls/hr Documented by: Admin: 09/15/20 08:52 Dose: 63.75 mls/hr Documented by: CECE Sodium Chloride (Normal Saline 0.45%) 1,000 mls @ 125 mls/hr IV CONT ILYA Last Admin: 09/15/20 08:51 Dose: 125 mls/hr Documented by: CECE Potassium Chloride 20 meq/ (Sodium Chloride) 1,010 mls @ 75 mls/hr IV CONT ILYA Last Infusion: 09/17/20 16:29 Dose: 0 mls/hr Documented by: COREY Cosigned by: ISAIAH Admin: 09/17/20 07:51 Dose: 75 mls/hr Documented by: JATIN Cosigned by: SARAH Infusion: 09/17/20 07:51 Dose: 75 mls/hr Documented by: JATIN Cosigned by: SARAH Admin: 09/16/20 18:22 Dose: 75 mls/hr Documented by: MILEY Cosigned by: CSHOSTUART Infusion: 09/16/20 15:56 Dose: 75 mls/hr Documented by: MILEY Cosigned by: HUONGHOSTUART Admin: 09/16/20 08:10 Dose: 150 mls/hr Documented by: JATIN Cosigned by: SARAH Infusion: 09/16/20 08:08 Dose: 150 mls/hr Documented by: JATIN Cosigned by: SARAH Admin: 09/16/20 01:24 Dose: 150 mls/hr Documented by: DAVID Cosigned by: [email or web address] Infusion: 09/15/20 23:08 Dose: 150 mls/hr Documented by: DAVID Cosigned by: LANCE Infusion: 09/15/20 19:20 Dose: 150 mls/hr Documented by: COREY Cosigned by: MILEY Admin: 09/15/20 15:48 Dose: 125 mls/hr Documented by: COREY Cosigned by: MILEY Magnesium Sulfate (Magnesium Sulfate) 2 gm in 50 mls @ 25 mls/hr IV NOW ONE Stop: 09/16/20 09:57 Last Infusion: 09/16/20 12:21 Dose: 0 mls/hr Documented by: JATIN Cosigned by: SARAH Admin: 09/16/20 08:29 Dose: 25 mls/hr Documented by: JATIN Sherigned by: SARAH Influenza Virus Vaccine (Flu Vaccine) 0.5 ml IM .ONCE ONE Stop: 09/14/20 09:01 Last Admin: 09/14/20 10:12 Dose: 0.5 ml Documented by: CECE Lorazepam (Ativan) 2 mg IV NOW ONE Stop: 09/13/20 23:25 Last Admin: 09/13/20 23:48 Dose: 2 mg Documented by: ROOSEVELT Lorazepam (Ativan) 0 mg IV CIWAPRN PRN; Protocol PRN Reason: Alcohol Withdrawal Last Admin: 09/14/20 13:05 Dose: 2 mg Documented by: Admin: 09/14/20 12:32 Dose: 2 mg Documented by: Admin: 09/14/20 10:12 Dose: 1 mg Documented by: Admin: 09/14/20 08:17 Dose: 1 mg Documented by: Admin: 09/14/20 04:58 Dose: 1 mg Documented by: Admin: 09/14/20 01:56 Dose: 1 mg Documented by: KD Lorazepam (Ativan) 4 mg IV CIWAPRN PRN; Protocol PRN Reason: Alcohol Withdrawal Last Admin: 09/14/20 15:35 Dose: 4 mg Documented by: Admin: 09/14/20 14:38 Dose: 2 mg Documented by: Admin: 09/14/20 13:34 Dose: 4 mg Documented by: CECE Nicotine (Nicoderm) 14 mg TOP NOW ONE Stop: 09/13/20 23:25 Last Admin: 09/14/20 01:34 Dose: Not Given Documented by: KD Nicotine (Nicoderm) 14 mg TOP NOW ONE Stop: 09/14/20 01:34 Last Admin: 09/14/20 01:45 Dose: 14 mg Documented by: KD Phytonadione (Mephyton) 10 mg PO NOW [facility] Stop: 09/17/20 11:29 Last Admin: 09/14/20 12:28 Dose: 10 mg Documented by: CECE Phytonadione (Mephyton) 10 mg PO DAILY [facility] Stop: 09/17/20 08:59 Last Admin: 09/16/20 08:12 Dose: 10 mg Documented by: Admin: 09/15/20 08:51 Dose: 10 mg Documented by: CECE Potassium Chloride (Potassium Chloride) 40 meq PO NOW ONE Stop: 09/14/20 00:32 Last Admin: 09/14/20 01:09 Dose: 40 meq Documented by: KD Potassium Chloride (Klor-Con M20) 40 meq PO NOW ONE Stop: 09/15/20 08:27 Last Admin: 09/15/20 09:01 Dose: 40 meq Documented by: CECE Potassium Chloride (Klor-Con M20) 20 meq PO NOW ONE Stop: 09/15/20 15:07 Last Admin: 09/15/20 15:46 Dose: 20 meq Documented by: COREY Potassium Chloride (Klor-Con M20) 40 meq PO NOW ONE Stop: 09/16/20 09:02 Last Admin: 09/16/20 09:37 Dose: 40 meq Documented by: JATIN Thiamine HCl (Vitamin B-1) 100 mg PO DAILY [facility] Stop: 09/17/20 09:01 Last Admin: 09/17/20 13:49 Dose: 100 mg Documented by: Admin: 09/16/20 08:12 Dose: 100 mg Documented by: Admin: 09/15/20 08:05 Dose: 100 mg Documented by: Admin: 09/14/20 08:17 Dose: 100 mg Documented by: CECE Vital Signs Vital signs: Vital Signs - 8 hr 09/13/20 16:50 09/13/20 18:39 09/13/20 19:00 Temperature 97.6 F Pulse Rate 95 H 85 85 Respiratory Rate 12 18 21 Blood Pressure 171/100 H 148/90 H Pulse Oximetry 94 99 98 09/13/20 19:30 09/13/20 20:00 09/13/20 20:30 Temperature Pulse Rate 100 H 91 H 95 H Respiratory Rate 32 H 26 H 29 H Blood Pressure Pulse Oximetry 95 98 94 09/13/20 21:00 09/13/20 21:30 09/13/20 21:52 Temperature Pulse Rate 94 H 96 H 95 H Respiratory Rate 25 H 23 20 Blood Pressure 181/108 H Pulse Oximetry 91 91 94 MDM - SOB/Dyspnea <Berna Salazar, DO - Last Filed: 09/18/20 08:22> Lab Data Result diagrams: 09/18/20 05:02 09/18/20 05:02 Labs: Lab Results 09/13/20 09/13/20 09/13/20 Range/Units 16:54 16:54 16:54 WBC 3.5 L (4.5-11.0) X10^3/uL RBC 4.29 L (4.5-5.9) X10^6/uL Hgb 15.5 (13.5-17.5) g/dL Hct 44.7 (41-53) % MCV 104.2 H (80-100) fL MCH 36.2 H (26-34) PG MCHC 34.7 (30-36) % RDW 13.5 (11.6-14.8) % Plt Count 38 L (150-400) X10^3/uL Neut % (Auto) 62.8 (50-75) % Lymph % (Auto) 25.4 (25-40) % [place] % (Auto) 10.2 (3-14) % Eos % (Auto) 0.5 L (2-4) % Baso % (Auto) 1.1 (0-2) % Neut # (Auto) 2200 (9428-6187) /uL Lymph # (Auto) 900 L (1359-9587) /uL [place] # (Auto) 400 (0-900) /uL Eos # (Auto) 0 (0-450) /uL Baso # (Auto) 0 (0-100) /uL Platelet Estimate Decreased on smear RBC Morphology Normal morphology PT (10.1-12.7) SECONDS INR (0.9-1.3) APTT (26.4-36.2) SECONDS Sodium 143 (137-145) mmol/L Potassium 3.2 L (3.4-5.1) mmol/L Chloride 100 (98-107) mmol/L Carbon Dioxide 30 (22-32) mmol/L BUN 6 L (9-20) mg/dL Creatinine 0.69 (0.66-1.25) mg/dL Estimated GFR > 60.0 (>60) mL/min BUN/Creatinine Ratio 8.7 (6-22) Glucose 125 H (70-100) mg/dL Lactate 2.8 H (0.7-2.1) mmol/L Calcium 8.8 (8.4-10.2) mg/dL Total Bilirubin 2.4 H (0.2-1.3) mg/dL AST 267 H (17-59) IU/L ALT 103 H (<50) IU/L Alkaline Phosphatase 163 H (38-126) U/L Total Protein 9.1 H (6.3-8.2) g/dL Albumin 4.4 (3.5-5.0) g/dL Globulin 4.7 H (1.7-4.1) g/dL Albumin/Globulin Ratio 0.9 L (1.0-2.8) Lipase (23-300) U/L U Opiates 300ng/mL cut (Negative) Ur Oxycodone Screen (Negative) Urine Methadone Screen (Negative) Ur Barbiturates Screen (Negative) U Tricyclic Antidepress (Negative) Ur Phencyclidine Scrn (Negative) Ur Amphetamines Screen (Negative) U Methamphetamines Scrn (Negative) Ur MDMA Scrn (Ecstasy) (Negative) U Benzodiazepines Scrn (Negative) Urine Cocaine Screen (Negative) U Marijuana (THC) Screen (Negative) Ethyl Alcohol ( - 10) mg/dL COVID-19 PCR (Negative) 09/13/20 09/13/20 09/13/20 Range/Units 16:54 16:54 16:54 WBC (4.5-11.0) X10^3/uL RBC (4.5-5.9) X10^6/uL Hgb (13.5-17.5) g/dL Hct (41-53) % MCV (80-100) fL MCH (26-34) PG MCHC (30-36) % RDW (11.6-14.8) % Plt Count (150-400) X10^3/uL Neut % (Auto) (50-75) % Lymph % (Auto) (25-40) % [place] % (Auto) (3-14) % Eos % (Auto) (2-4) % Baso % (Auto) (0-2) % Neut # (Auto) (3690-0793) /uL Lymph # (Auto) (1714-8374) /uL [place] # (Auto) (0-900) /uL Eos # (Auto) (0-450) /uL Baso # (Auto) (0-100) /uL Platelet Estimate RBC Morphology PT 14.3 H (10.1-12.7) SECONDS INR 1.3 (0.9-1.3) APTT 36 D (26.4-36.2) SECONDS Sodium (137-145) mmol/L Potassium (3.4-5.1) mmol/L Chloride (98-107) mmol/L Carbon Dioxide (22-32) mmol/L BUN (9-20) mg/dL Creatinine (0.66-1.25) mg/dL Estimated GFR (>60) mL/min BUN/Creatinine Ratio (6-22) Glucose (70-100) mg/dL Lactate (0.7-2.1) mmol/L Calcium (8.4-10.2) mg/dL Total Bilirubin (0.2-1.3) mg/dL AST (17-59) IU/L ALT (<50) IU/L Alkaline Phosphatase (38-126) U/L Total Protein (6.3-8.2) g/dL Albumin (3.5-5.0) g/dL Globulin (1.7-4.1) g/dL Albumin/Globulin Ratio (1.0-2.8) Lipase 827 H (23-300) U/L U Opiates 300ng/mL cut (Negative) Ur Oxycodone Screen (Negative) Urine Methadone Screen (Negative) Ur Barbiturates Screen (Negative) U Tricyclic Antidepress (Negative) Ur Phencyclidine Scrn (Negative) Ur Amphetamines Screen (Negative) U Methamphetamines Scrn (Negative) Ur MDMA Scrn (Ecstasy) (Negative) U Benzodiazepines Scrn (Negative) Urine Cocaine Screen (Negative) U Marijuana (THC) Screen (Negative) Ethyl Alcohol 443 H* ( - 10) mg/dL COVID-19 PCR (Negative) 09/13/20 09/13/20 09/13/20 Range/Units 16:59 19:15 19:50 WBC (4.5-11.0) X10^3/uL RBC (4.5-5.9) X10^6/uL Hgb (13.5-17.5) g/dL Hct (41-53) % MCV (80-100) fL MCH (26-34) PG MCHC (30-36) % RDW (11.6-14.8) % Plt Count (150-400) X10^3/uL Neut % (Auto) (50-75) % Lymph % (Auto) (25-40) % [place] % (Auto) (3-14) % Eos % (Auto) (2-4) % Baso % (Auto) (0-2) % Neut # (Auto) (8509-2506) /uL Lymph # (Auto) (3679-6486) /uL [place] # (Auto) (0-900) /uL Eos # (Auto) (0-450) /uL Baso # (Auto) (0-100) /uL Platelet Estimate RBC Morphology PT (10.1-12.7) SECONDS INR (0.9-1.3) APTT (26.4-36.2) SECONDS Sodium (137-145) mmol/L Potassium (3.4-5.1) mmol/L Chloride (98-107) mmol/L Carbon Dioxide (22-32) mmol/L BUN (9-20) mg/dL Creatinine (0.66-1.25) mg/dL Estimated GFR (>60) mL/min BUN/Creatinine Ratio (6-22) Glucose (70-100) mg/dL Lactate 2.2 H (0.7-2.1) mmol/L Calcium (8.4-10.2) mg/dL Total Bilirubin (0.2-1.3) mg/dL AST (17-59) IU/L ALT (<50) IU/L Alkaline Phosphatase (38-126) U/L Total Protein (6.3-8.2) g/dL Albumin (3.5-5.0) g/dL Globulin (1.7-4.1) g/dL Albumin/Globulin Ratio (1.0-2.8) Lipase (23-300) U/L U Opiates 300ng/mL cut Negative (Negative) Ur Oxycodone Screen Negative (Negative) Urine Methadone Screen Negative (Negative) Ur Barbiturates Screen Negative (Negative) U Tricyclic Antidepress Negative (Negative) Ur Phencyclidine Scrn Negative (Negative) Ur Amphetamines Screen Negative (Negative) U Methamphetamines Scrn Negative (Negative) Ur MDMA Scrn (Ecstasy) Negative (Negative) U Benzodiazepines Scrn Negative (Negative) Urine Cocaine Screen Negative (Negative) U Marijuana (THC) Screen Positive H (Negative) Ethyl Alcohol ( - 10) mg/dL COVID-19 PCR Negative (Negative) Urine Dip Bedside Urine Glucose Negative Bedside Urine Bilirubin - Negative Bedside Urine Ketone - Negative Urine Specific [place] 1.010 Bedside Urine Occult Blood +/- Bedside Urine pH 7.0 Bedside Urine Protein +/- 15 Bedside Urine Urobilinogen 2+ 4mg Bedside Urine Nitrite - Negative Bedside Urine Leukocytes - Negative Esterase ECG Data Attestation: I personally reviewed and interpreted this ECG as follows: Interpretation: Sinus rhythm first-degree AV block rate 86 parent regarding her [address] elevation appreciated. MDM Narrative Medical decision making narrative: Patient signed out to Dr. Mcclain while awaiting labs and imaging, EKG reviewed patient is hypertensive in department but otherwise normal vitals. <Gita Mcclain MD - Last Filed: 09/14/20 00:45> Medical Records Attestation: I reviewed the patient's medical records. Lab Data Attestation: I reviewed the patient's lab results. Lab results narrative: Mildly leukocytopenia but it looks close to his baseline. Platelets are significantly low at 38, he is typically below 130 but never quite as low as 38. Hypokalemia Slightly elevated lactic Elevated bilirubin AST ALT and alk-phos. ALT and AST have been elevated in the past Slightly elevated lipase Level at 4:43 a.m. and positive marijuana Labs: Lab Results 09/13/20 09/13/20 09/13/20 Range/Units 16:54 16:54 16:54 WBC 3.5 L (4.5-11.0) X10^3/uL RBC 4.29 L (4.5-5.9) X10^6/uL Hgb 15.5 (13.5-17.5) g/dL Hct 44.7 (41-53) % MCV 104.2 H (80-100) fL MCH 36.2 H (26-34) PG MCHC 34.7 (30-36) % RDW 13.5 (11.6-14.8) % Plt Count 38 L (150-400) X10^3/uL Neut % (Auto) 62.8 (50-75) % Lymph % (Auto) 25.4 (25-40) % [place] % (Auto) 10.2 (3-14) % Eos % (Auto) 0.5 L (2-4) % Baso % (Auto) 1.1 (0-2) % Neut # (Auto) 2200 (0884-3999) /uL Lymph # (Auto) 900 L (5138-0683) /uL [place] # (Auto) 400 (0-900) /uL Eos # (Auto) 0 (0-450) /uL Baso # (Auto) 0 (0-100) /uL Platelet Estimate Decreased on smear RBC Morphology Normal morphology PT (10.1-12.7) SECONDS INR (0.9-1.3) APTT (26.4-36.2) SECONDS Sodium 143 (137-145) mmol/L Potassium 3.2 L (3.4-5.1) mmol/L Chloride 100 (98-107) mmol/L Carbon Dioxide 30 (22-32) mmol/L BUN 6 L (9-20) mg/dL Creatinine 0.69 (0.66-1.25) mg/dL Estimated GFR > 60.0 (>60) mL/min BUN/Creatinine Ratio 8.7 (6-22) Glucose 125 H (70-100) mg/dL Lactate 2.8 H (0.7-2.1) mmol/L Calcium 8.8 (8.4-10.2) mg/dL Total Bilirubin 2.4 H (0.2-1.3) mg/dL AST 267 H (17-59) IU/L ALT 103 H (<50) IU/L Alkaline Phosphatase 163 H (38-126) U/L Total Protein 9.1 H (6.3-8.2) g/dL Albumin 4.4 (3.5-5.0) g/dL Globulin 4.7 H (1.7-4.1) g/dL Albumin/Globulin Ratio 0.9 L (1.0-2.8) Lipase (23-300) U/L U Opiates 300ng/mL cut (Negative) Ur Oxycodone Screen (Negative) Urine Methadone Screen (Negative) Ur Barbiturates Screen (Negative) U Tricyclic Antidepress (Negative) Ur Phencyclidine Scrn (Negative) Ur Amphetamines Screen (Negative) U Methamphetamines Scrn (Negative) Ur MDMA Scrn (Ecstasy) (Negative) U Benzodiazepines Scrn (Negative) Urine Cocaine Screen (Negative) U Marijuana (THC) Screen (Negative) Ethyl Alcohol ( - 10) mg/dL COVID-19 PCR (Negative) 09/13/20 09/13/20 09/13/20 Range/Units 16:54 16:54 16:54 WBC (4.5-11.0) X10^3/uL RBC (4.5-5.9) X10^6/uL Hgb (13.5-17.5) g/dL Hct (41-53) % MCV (80-100) fL MCH (26-34) PG MCHC (30-36) % RDW (11.6-14.8) % Plt Count (150-400) X10^3/uL Neut % (Auto) (50-75) % Lymph % (Auto) (25-40) % [place] % (Auto) (3-14) % Eos % (Auto) (2-4) % Baso % (Auto) (0-2) % Neut # (Auto) (4335-5156) /uL Lymph # (Auto) (8133-6548) /uL [place] # (Auto) (0-900) /uL Eos # (Auto) (0-450) /uL Baso # (Auto) (0-100) /uL Platelet Estimate RBC Morphology PT 14.3 H (10.1-12.7) SECONDS INR 1.3 (0.9-1.3) APTT 36 D (26.4-36.2) SECONDS Sodium (137-145) mmol/L Potassium (3.4-5.1) mmol/L Chloride (98-107) mmol/L Carbon Dioxide (22-32) mmol/L BUN (9-20) mg/dL Creatinine (0.66-1.25) mg/dL Estimated GFR (>60) mL/min BUN/Creatinine Ratio (6-22) Glucose (70-100) mg/dL Lactate (0.7-2.1) mmol/L Calcium (8.4-10.2) mg/dL Total Bilirubin (0.2-1.3) mg/dL AST (17-59) IU/L ALT (<50) IU/L Alkaline Phosphatase (38-126) U/L Total Protein (6.3-8.2) g/dL Albumin (3.5-5.0) g/dL Globulin (1.7-4.1) g/dL Albumin/Globulin Ratio (1.0-2.8) Lipase 827 H (23-300) U/L U Opiates 300ng/mL cut (Negative) Ur Oxycodone Screen (Negative) Urine Methadone Screen (Negative) Ur Barbiturates Screen (Negative) U Tricyclic Antidepress (Negative) Ur Phencyclidine Scrn (Negative) Ur Amphetamines Screen (Negative) U Methamphetamines Scrn (Negative) Ur MDMA Scrn (Ecstasy) (Negative) U Benzodiazepines Scrn (Negative) Urine Cocaine Screen (Negative) U Marijuana (THC) Screen (Negative) Ethyl Alcohol 443 H* ( - 10) mg/dL COVID-19 PCR (Negative) 09/13/20 09/13/20 09/13/20 Range/Units 16:59 19:15 19:50 WBC (4.5-11.0) X10^3/uL RBC (4.5-5.9) X10^6/uL Hgb (13.5-17.5) g/dL Hct (41-53) % MCV (80-100) fL MCH (26-34) PG MCHC (30-36) % RDW (11.6-14.8) % Plt Count (150-400) X10^3/uL Neut % (Auto) (50-75) % Lymph % (Auto) (25-40) % [place] % (Auto) (3-14) % Eos % (Auto) (2-4) % Baso % (Auto) (0-2) % Neut # (Auto) (7633-9318) /uL Lymph # (Auto) (3868-3688) /uL [place] # (Auto) (0-900) /uL Eos # (Auto) (0-450) /uL Baso # (Auto) (0-100) /uL Platelet Estimate RBC Morphology PT (10.1-12.7) SECONDS INR (0.9-1.3) APTT (26.4-36.2) SECONDS Sodium (137-145) mmol/L Potassium (3.4-5.1) mmol/L Chloride (98-107) mmol/L Carbon Dioxide (22-32) mmol/L BUN (9-20) mg/dL Creatinine (0.66-1.25) mg/dL Estimated GFR (>60) mL/min BUN/Creatinine Ratio (6-22) Glucose (70-100) mg/dL Lactate 2.2 H (0.7-2.1) mmol/L Calcium (8.4-10.2) mg/dL Total Bilirubin (0.2-1.3) mg/dL AST (17-59) IU/L ALT (<50) IU/L Alkaline Phosphatase (38-126) U/L Total Protein (6.3-8.2) g/dL Albumin (3.5-5.0) g/dL Globulin (1.7-4.1) g/dL Albumin/Globulin Ratio (1.0-2.8) Lipase (23-300) U/L U Opiates 300ng/mL cut Negative (Negative) Ur Oxycodone Screen Negative (Negative) Urine Methadone Screen Negative (Negative) Ur Barbiturates Screen Negative (Negative) U Tricyclic Antidepress Negative (Negative) Ur Phencyclidine Scrn Negative (Negative) Ur Amphetamines Screen Negative (Negative) U Methamphetamines Scrn Negative (Negative) Ur MDMA Scrn (Ecstasy) Negative (Negative) U Benzodiazepines Scrn Negative (Negative) Urine Cocaine Screen Negative (Negative) U Marijuana (THC) Screen Positive H (Negative) Ethyl Alcohol ( - 10) mg/dL COVID-19 PCR Negative (Negative) Urine Dip Bedside Urine Glucose Negative Bedside Urine Bilirubin - Negative Bedside Urine Ketone - Negative Urine Specific [place] 1.010 Bedside Urine Occult Blood +/- Bedside Urine pH 7.0 Bedside Urine Protein +/- 15 Bedside Urine Urobilinogen 2+ 4mg Bedside Urine Nitrite - Negative Bedside Urine Leukocytes - Negative Esterase Imaging Data CT scan - head: Radiologist's Impression: FINDINGS: Image quality: Excellent. CSF spaces: Basal cisterns are patent. No extra-axial fluid collections. Ventricles are normal in size and shape. Brain: No midline shift. No intracranial masses or hemorrhage. Edgar-white matter interface is normal. Skull and face: Calvarium and visualized facial bones are intact, without suspicious lesions. Sinuses: Right maxillary mucosal thickening. The mastoids are clear. IMPRESSION: No acute intracranial abnormality. Dictated by: Kip Huggins M.D. on 09/13/2020 at 18:43 CT scan - abdomen/pelvis: Radiologist's Impression: FINDINGS: Image quality: Excellent. CSF spaces: Basal cisterns are patent. No extra-axial fluid collections. Ventricles are normal in size and shape. Brain: No midline shift. No intracranial masses or hemorrhage. Edgar-white matter interface is normal. Skull and face: Calvarium and visualized facial bones are intact, without suspicious lesions. Sinuses: Right maxillary mucosal thickening. The mastoids are clear. IMPRESSION: No acute intracranial abnormality. Dictated by: Kip Huggins M.D. on 09/13/2020 at 18:43 ECG Data Attestation: I personally reviewed and interpreted this ECG as follows: Interpretation: Sinus rhythm at 86 First degree block, left axis deviation, no acute ST changes MDM Narrative Medical decision making narrative: 54-year-old gentleman with severe alcohol use disorder presents feeling generally unwell. He has an alcoholic hepatitis, alcoholic pancreatitis and is significantly intoxicated . Initial alcohol level is 443 and withdrawal symptoms symptoms developing, CIWA of 9, at an alcohol level estimated to be 263. He has had difficult times with alcohol withdrawal previously but isn't sure if he has had seizures. We had a very uzma discussion about best treatment at this time with his sister in the room as well. I was very clear that he was drinking himself to . I gave him the choice of choosing to leave and continuing to drink knowing that he will from his drinking or choosing to stay in the hospital to treat his hepatitis, pancreatitis and help him get through his initial alcohol withdrawal symptoms and detox with social work help to then get him in to alcohol treatment. I was very clear with him that if he was going to choose to leave within 1-2 days of hospitalization that he simply needed to leave now. Diffuse choosing to stay he is choosing to stay for the duration of treatment. Did carefully consider this and he did choose to stay. He is being given banana bag will continue fluids and begin alcohol CIWA pro tocols. Care is reviewed with Dr. Garcia who is on-call for Dr. Keith. Patient is admitted. Discharge Plan Departure Patient Disposition: Admitted As Inpatient Clinical Impression: Acute alcoholic hepatitis, Alcohol use disorder Acute alcoholic pancreatitis Qualifiers: Acute pancreatitis complication: no infection or necrosis Qualified Code(s): K85.20 - Alcohol induced acute pancreatitis without necrosis or infection Alcohol withdrawal Qualifiers: Complication of substance-induced condition: with unspecified complication Qualified Code(s): F10.239 - Alcohol dependence with withdrawal, unspecified Discharge Date/Time: 09/14/20 00:16 Admit Date/Time: 09/13/20 23:25 Admit Provider: Emilia Garcia
[2020-09-13 17:53] LABS: COVID19 -Nasal RAPID Negative (Negative)
--- NOTE | 2020-09-13 17:53 | DI.CT.S_ITS ---
PROCEDURE: CT HEAD/BRAIN WO CON INDICATIONS: fall several days ago, etoh hx TECHNIQUE: Noncontrast 4.5 mm thick angled axial sections acquired from the foramen magnum to the vertex, with coronal and sagittal reformats. For radiation dose reduction, the following was used: automated exposure control, adjustment of mA and/or kV according to patient size. COMPARISON: None. FINDINGS: Image quality: Excellent. CSF spaces: Basal cisterns are patent. No extra-axial fluid collections. Ventricles are normal in size and shape. Brain: No midline shift. No intracranial masses or hemorrhage. Edgar-white matter interface is normal. Skull and face: Calvarium and visualized facial bones are intact, without suspicious lesions. Sinuses: Right maxillary mucosal thickening. The mastoids are clear. IMPRESSION: No acute intracranial abnormality. Dictated by: Kip Huggins M.D. on 09/13/2020 at 18:43 Approved by: Kip Huggins M.D. on 09/13/2020 at 18:46
[2020-09-13 17:55] LABS: INR 1.3 (0.9-1.3); Prothrombin Time 14.3 SECONDS (10.1-12.7)
[2020-09-13 17:58] LABS: Lipase 827 U/L (23-300); PTT Partial Thromboplastin Tim 36 SECONDS (26.4-36.2)
[2020-09-13 18:09] LABS: Ethanol (ETOH) 443 mg/dL
--- NOTE | 2020-09-13 18:13 | DI.CT.S_ITS ---
PROCEDURE: CT ABDOMEN PELVIS W CON INDICATIONS: elevated LFTs TECHNIQUE: After the administration of intravenous contrast, 5 mm thick sections acquired from the diaphragm to the symphysis. 5 mm coronal and sagittal reformats were acquired. For radiation dose reduction, the following was used: automated exposure control, adjustment of mA and/or kV according to patient size. COMPARISON: [facility], CT, CT ABDOMEN PELVIS W CON, 12/11/2019, 12:48. FINDINGS: Image quality: Excellent. ABDOMEN: Lung bases: Mild bibasilar atelectasis. No pleural effusion. Heart size is normal. Solid organs: Nodular liver. Calcification in the right lobe of the liver. Gallbladder is distended. No calcified gallstones seen. Biliary system is non dilated. Pancreas enhances normally. No splenomegaly. No adrenal nodules. Kidneys demonstrate normal enhancement, without hydronephrosis. Horseshoe kidney. Peritoneum and bowel: No small bowel obstruction. Prominent stool in the rectum. Normal appendix. No free fluid or air. Nodes and vessels: No retroperitoneal or mesenteric adenopathy by size criteria. No AAA. 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 Recannulization of the periumbilical vein. Subcutaneous varices. Miscellaneous: No ventral hernias. Midline scar. PELVIS: Genitourinary: Bladder wall thickness is normal. Miscellaneous: Tiny fat containing left inguinal hernia. No adenopathy. Bones: No suspicious bony lesions. Scoliosis. No vertebral body compression fractures. IMPRESSION: 1. Cirrhotic morphology. No ascites. 2. Upper abdominal splenorenal shunt and varices. No splenomegaly. 3. Distended gallbladder. 4. Horseshoe kidney. Dictated by: Kip Huggins M.D. on 09/13/2020 at 19:01 Approved by: Kip Huggins M.D. on 09/13/2020 at 19:08
[2020-09-13 18:24] LABS: Platelet Estimate Decreased on smear; RBC Morphology Normal Morphology
[2020-09-13 19:22] LABS: Reflexed Lactate in 2 Hours Y
[2020-09-13 19:41] LABS: UR Morphine/Opiate cutoff 300 Negative (Negative); Ur Creatinine Normal (Normal); Ur Specific Gravity Normal (Normal); Urine Amphetamines Negative (Negative); Urine Barbiturates Negative (Negative); Urine Benzodiazepines Negative (Negative); Urine Cocaine Negative (Negative); Urine MDMA Negative (Negative); Urine Methadone Negative (Negative); Urine Methamphetamines Negative (Negative); Urine Oxycodone Negative (Negative); Urine Phencyclidine Negative (Negative); Urine Tetrahydrocannabinol Positive (Negative); Urine Tricyclic Antidepressant Negative (Negative); Urine pH Normal (Normal)
[2020-09-13 20:08] LABS: Lactate 2HR (Lactic Acid Rflx) 2.2 mmol/L (0.7-2.1)
[2020-09-13] MEDS: MAGNESIUM SULFATE 2 GM, FOLIC ACID 1 MG, THIAMINE 100 MG, MULTIVITAMIN 10 ML in SODIUM ... IV (21:46)
[2020-09-13] MEDS: LORazepam 2 MG/ML INJ IV (23:48)
[2020-09-14] VITALS (77 sets, daily range): BP systolic 123–203; BP diastolic 64–113; PULSE 83–134; RESP 14–34; TEMP 36.8–38.7; O2SAT 90–99; BMI 43.4
[2020-09-14] MEDS: POTASSIUM CHLORIDE 20 MEQ/15 ML UDC 40 MEQ PO (01:09)
[2020-09-14] MEDS: NICOTINE 14 PATCH 14 MG TOP (01:45)
[2020-09-14] MEDS: LORazepam 2 MG/ML INJ IV ×11 (01:56→23:24)
--- NOTE | 2020-09-14 02:29 | PC.ADMIT ---
[id number] Admission Note:Pt arrived to unit. Disoriented to date and time. Oriented to self, place, and situation. Pleasant and able to hold conversation. Scored CIWA 6 upon arrival. Once on unit pt became more anxious and started hallucinating. CIWA at 9 now. Lorazepam given per protocol. Pt denies any pain at this time. Skin check done with JUAN Chapman. Decreased to 4L o2 from 6L and pt O2 sats stable at 96%. Pt has no complaints at this time. WCTM The patient,Emil Desouza,54 y/o, was given written information regarding hospital policies, unit procedures and contact persons. Patient's smoking status: Current every day smoker. Vital Signs - 8 hr 09/13/20 18:39 09/13/20 19:00 09/13/20 19:30 Temperature Pulse Rate 85 85 100 H Respiratory Rate 18 21 32 H Blood Pressure 148/90 H Pulse Oximetry 99 98 95 09/13/20 20:00 09/13/20 20:30 09/13/20 21:00 Temperature Pulse Rate 91 H 95 H 94 H Respiratory Rate 26 H 29 H 25 H Blood Pressure Pulse Oximetry 98 94 91 09/13/20 21:30 09/13/20 21:52 09/13/20 22:00 Temperature Pulse Rate 96 H 95 H 88 Respiratory Rate 23 20 18 Blood Pressure 181/108 H 156/86 H Pulse Oximetry 91 94 97 09/13/20 22:30 09/13/20 22:31 09/13/20 23:00 Temperature Pulse Rate 87 89 91 H Respiratory Rate 29 H 17 27 H Blood Pressure 167/108 H 175/122 H Pulse Oximetry 97 96 95 09/13/20 23:30 09/14/20 00:00 09/14/20 00:30 Temperature Pulse Rate 80 90 91 H Respiratory Rate 16 19 18 Blood Pressure 129/64 156/80 H 133/88 Pulse Oximetry 97 94 92 09/14/20 01:02 09/14/20 01:21 09/14/20 02:01 Temperature 98.3 F Pulse Rate 98 H 98 H 98 H Respiratory Rate 20 18 20 Blood Pressure 142/92 H 142/92 H 151/94 H Pulse Oximetry 95 96 09/14/20 02:25 Temperature Pulse Rate 94 H Respiratory Rate 20 Blood Pressure 144/80 H Pulse Oximetry
--- NOTE | 2020-09-14 03:12 | RT ---
RN called for freq deSats to 75% while on NC 3-5L and sleeping soundly. Observed Apnea when assessed. Placed on our Respironics BIPAP w/ 3 L B/I to achieve 94% Saturation. B/I titrated to keep Sats in mid 90 range. On auscultation, he is still apneic at times while on the BIPAP but not as bad as before tx.
[2020-09-14] MEDS: LACTATED RINGERS 1,000 ML 300 ML IV ×6 (03:23→22:29)
--- NOTE | 2020-09-14 03:44 | PC.NURSE ---
Addendum entered by Joelle Lovelace R.N. 09/14/20 06:36: Pt off BIPAP while awake for 30 mins, O2 sats stable at 94% on 6L NC. Placed back on BIPAP while asleep. No complaints. Pt still has not voided since ED. Bladder scan showing 150ml. Will continue to encourage pt to void. Original Note: Pt O2 sats dropping to the mid 70s while on 4L 02, increased to 6L 02 without change. RT called. Pt having periods of apnea. Started on CPAP and pt O2 continues to intermittently drop to 84%. RT at bedside and started on BIPAP at 30% and 16RR. Pt tolerating well. O2 sats now stable at 94%. Notified Dr Garcia via telephone. No orders received.
[2020-09-14 05:17] LABS: Alanine Aminotransferase 90 IU/L (<50); Albumin 3.9 g/dL (3.5-5.0); Alkaline Phosphatase 142 U/L (38-126); Aspartate Aminotransferase 213 IU/L (17-59); BUN Creatinine Ratio 12.1 (6-22); Bilirubin Unconjugated 1.1 mg/dL (0.0-1.1); Blood Urea Nitrogen 7 mg/dL (9-20); Calcium 8.3 mg/dL (8.4-10.2); Carbon Dioxide 28 mmol/L (22-32); Chloride 105 mmol/L (98-107); Cholesterol 145 mg/dL (140-199); Estimated Glomerular Filt Rate > 60.0 mL/min (>60); Glucose 91 mg/dL (70-100); HDL Cholesterol 37 mg/dL (40-60); HEMOLYSIS < 15 (0-50); LDL Cholesterol Calculated 92 mg/dL (<100); Lipase 676 U/L (23-300); Magnesium 2.2 mg/dL (1.6-2.3); Phosphorous 3.4 mg/dL (2.5-4.5); Potassium 3.6 mmol/L (3.4-5.1); Sodium 143 mmol/L (137-145); Total Protein 7.9 g/dL (6.3-8.2); Triglycerides 80 mg/dL (35-150)
[2020-09-14 05:27] LABS: Add Manual Diff / Slide Review NO; Basophils Absolute Auto 0 /uL (0-100); Basophils Percent Auto 0.6 % (0-2); Eosinophils Absolute Auto 0 /uL (0-450); Eosinophils Percent Auto 0.8 % (2-4); Hematocrit 39.7 % (41-53); Hemoglobin 13.6 g/dL (13.5-17.5); Lymphocytes Absolute Auto 800 /uL (1100-4500); Lymphocytes Percent Auto 22.4 % (25-40); Mean Corpuscular HGB Conc 34.4 % (30-36); Mean Corpuscular Hemoglobin 35.9 PG (26-34); Mean Corpuscular Volume 104.6 fL (80-100); Monocytes Absolute Auto 400 /uL (0-900); Monocytes Percent Auto 11.4 % (3-14); Neutrophils Absolute Auto 2300 /uL (1500-7000); Neutrophils Percent Auto 64.8 % (50-75); Red Cell Distribution Width 13.3 % (11.6-14.8); White Blood Cell Count 3.5 X10^3/uL (4.5-11.0)
[2020-09-14 05:39] LABS: Platelet Count 26 X10^3/uL (150-400)
[2020-09-14 05:43] LABS: Platelet Estimate Decreased on smear; RBC Morphology Normal Morphology
[2020-09-14] MEDS: FOLIC ACID 1 MG TABLET PO (08:17)
[2020-09-14] MEDS: THIAMINE 100 MG TABLET PO (08:17)
[2020-09-14] MEDS: MULTIVITAMIN 1 TABLET 1 TAB PO (08:17)
--- NOTE | 2020-09-14 08:26 | PM.HP.1 ---
History of Present Illness History of Present Illness Date Patient Seen: 09/14/20 Time Patient Seen: 08:26 Chief complaint: feels terrible Narrative: This 54-year-old male with alcoholism, chronic hepatitis C, cirrhosis, and history of polysubstance abuse is admitted from the ED secondary to alcoholic pancreatitis and alcoholic hepatitis with cirrhosis. He is fairly new patient to Dr. Keith and he is seen in cross coverage for her. Presenting complaint was ?feeling sick.?. For the past month, he has had intermittent nose bleeds and has felt weak, short of breath, and shaky. Denies melanotic stools but does endorse intermittent diarrhea. His nonhealing skin sores that he has been picking. Two days prior to presentation, he fell but denies hitting his head. He did need assistance getting into the [facility] in the ED. Drinks a 5th of alcohol daily. Vital signs upon presentation to the ED included temperature 97.6?, pulse 95, respirations 12, blood pressure 171/100, O2 saturation 94% on room air. Lab workup significant for a markedly low platelet level of 38, low potassium at 3.2, and highly elevated liver/pancreatic enzymes with an AST of 267, ALT 103, ALP 163, and lipase 827. Ethanol level 443. Albumin 3.9. Lactic acid 2.8. Drug screen positive for marijuana. Does have a history of meth, Percocet, and heroin abuse and those were notably negative in his drug screen. CT head/brain/abdomen/pelvis notable for cirrhosis. EKG showed sinus rhythm with a ventricular rate of 86 beats per minute, first-degree AV block, left axis deviation and no ST elevation. He was COVID negative. He has been in the ED multiple times for same complaint and has had at least 2 inpatient detoxifications in last year for alcohol dependence. Recently started on citalopram 10 mg p.o. q.day for depression. Was referred to [facility] on 02/14 for treatment of his hepatitis-C after successful alcohol detoxification, that has not yet occurred. Has not been participating in AA. Was willing to proceed with admission in the hopes of transferring after this to alcohol detoxification center, has already made plans to do outpatient detox with [facility]. Past medical history: Alcohol abuse Alcoholic hepatitis Hepatitis C Polysubstance abuse Depression Tobacco dependence Erectile dysfunction Past surgical history: Umbilical hernia repair Right inguinal hernia repair Family history: Father: Heart disease Mother: Ovarian cancer Social history: delivery crew worker. Sister involved in his care. Fifth of alcohol daily. History of polysubstance abuse. Tobacco user. Patient History Medical History Headache (Chronic) Hearing loss (Chronic) Hepatitis C (Acute) Vision disorder (Chronic) Surgical History Hiatal hernia (Resolved) Periumbilical hernia (Resolved) Family & Social History Family History Father History of heart disease Mother Cancer Social History: household members none Prior Living Arrangements House Safety & Behavioral: Feels Safe in Current Yes Environment Been Physically Hurt or No Threatened By a Person Suicidal Ideation Description None Suicide Plan Description No Plan Tobacco & Substance use: Smoking Status Current every day smoker alcohol intake current alcohol intake frequency 3 or more drinks per day Substance Use Type marijuana,former substance user Meds Home Medications and Allergies Home Medications Medication Instructions Recorded Confirmed Type citalopram [Celexa] 10 mg PO DAILY 09/14/20 09/14/20 History hydroxyzine HCl 10 mg DAILY 09/14/20 09/14/20 History sildenafil 50 mg PO DAILY 09/14/20 09/14/20 History Allergies Allergy/AdvReac Type Severity Reaction Status Date / Time Penicillins [PENICILLINS] Allergy Unknown Verified 09/13/20 16:57 Review of Systems Review of Systems ROS: Yes All systems reviewed with the patient and are negative except as otherwise documented Exam Vital Signs (past 8 hours): - 09/14/20 00:30 09/14/20 01:02 09/14/20 01:21 Temperature 98.3 F Pulse Rate 91 H 98 H 98 H Respiratory Rate 18 20 18 Blood Pressure 133/88 142/92 H 142/92 H Pulse Oximetry 92 95 09/14/20 01:36 09/14/20 01:37 09/14/20 02:00 Temperature Pulse Rate 95 H 96 H 97 H Respiratory Rate 19 23 24 Blood Pressure 161/94 H 151/94 H Pulse Oximetry 96 97 96 09/14/20 02:01 09/14/20 02:24 09/14/20 02:25 Temperature Pulse Rate 98 H 100 H 94 H Respiratory Rate 20 24 20 Blood Pressure 151/94 H 144/83 H 144/80 H Pulse Oximetry 96 95 09/14/20 02:30 09/14/20 03:00 09/14/20 03:30 Temperature Pulse Rate 93 H 103 H 104 H Respiratory Rate 20 19 21 Blood Pressure 149/79 H Pulse Oximetry 95 94 99 09/14/20 03:43 09/14/20 03:46 09/14/20 04:00 Temperature Pulse Rate 101 H Respiratory Rate 18 Blood Pressure 149/79 H 123/78 Pulse Oximetry 94 93 09/14/20 05:00 09/14/20 05:25 09/14/20 06:44 Temperature Pulse Rate 101 H 102 H 93 H Respiratory Rate 20 16 18 Blood Pressure 147/90 H 154/92 H 153/84 H Pulse Oximetry 97 94 09/14/20 07:00 09/14/20 08:00 Temperature 98.9 F Pulse Rate 97 H 127 H Respiratory Rate 15 24 Blood Pressure 159/81 H 175/97 H Pulse Oximetry 97 92 Fraction of Inspired Oxygen 30 Oxygen Delivery Method BiPAP Oxygen Flow Rate 0 Narrative Exam Narrative: GENERAL: Alert and oriented obese male, appearing older than stated age, shaking and diaphoretic at time of interview. HEENT: Head normocephalic/atraumatic. Pupils equal, round, and reactive to light and accomodation. Conjunctivae are injected with some pustular exudate. Extraocular muscles intact. Tympanic membranes clear. Nasal mucosa with dried blood, septum midline. Oral mucosa moist, no lesions. Neck soft and supple, no lymphadenopathy. LUNGS: Clear to ausculation bilaterally, bilateral expiratory wheezes in bases. CV: Normal S1 and S2 with regular rate and rhythm, no audible murmurs, rubs or gallops. ABDOMEN: Soft, non-tender, non-distended, no organomegaly. Positive bowel sounds. EXTREMITIES: No clubbing, cyanosis, or edema. NEURO: Cranial nerves II through XII grossly intact, no focal deficits. PSYCH: Alert and oriented x 3. SKIN: Excoriation, right posterior shoulder, no signs of infection. Objective Labs Result Diagrams: 09/14/20 04:43 09/14/20 04:43 Labs: Laboratory Results - last 24 hr 09/13/20 09/13/20 09/13/20 16:54 16:54 16:54 WBC 3.5 L RBC 4.29 L Hgb 15.5 Hct 44.7 MCV 104.2 H MCH 36.2 H MCHC 34.7 RDW 13.5 Plt Count 38 L Neut % (Auto) 62.8 Lymph % (Auto) 25.4 [place] % (Auto) 10.2 Eos % (Auto) 0.5 L Baso % (Auto) 1.1 Neut # (Auto) 2200 Lymph # (Auto) 900 L [place] # (Auto) 400 Eos # (Auto) 0 Baso # (Auto) 0 Platelet Estimate Decreased on smear RBC Morphology Normal morphology PT INR APTT Sodium 143 Potassium 3.2 L Chloride 100 Carbon Dioxide 30 BUN 6 L Creatinine 0.69 Estimated GFR > 60.0 BUN/Creatinine Ratio 8.7 Glucose 125 H Lactate 2.8 H Calcium 8.8 Phosphorus Magnesium Total Bilirubin 2.4 H Conjugated Bilirubin Unconjugated Bilirubin AST 267 H ALT 103 H Alkaline Phosphatase 163 H Total Protein 9.1 H Albumin 4.4 Globulin 4.7 H Albumin/Globulin Ratio 0.9 L Triglycerides Cholesterol LDL Cholesterol, Calc HDL Cholesterol Lipase Nasal Screen MRSA (PCR) U Opiates 300ng/mL cut Ur Oxycodone Screen Urine Methadone Screen Ur Barbiturates Screen U Tricyclic Antidepress Ur Phencyclidine Scrn Ur Amphetamines Screen U Methamphetamines Scrn Ur MDMA Scrn (Ecstasy) U Benzodiazepines Scrn Urine Cocaine Screen U Marijuana (THC) Screen Ethyl Alcohol COVID-19 PCR 09/13/20 09/13/20 09/13/20 16:54 16:54 16:54 WBC RBC Hgb Hct MCV MCH MCHC RDW Plt Count Neut % (Auto) Lymph % (Auto) [place] % (Auto) Eos % (Auto) Baso % (Auto) Neut # (Auto) Lymph # (Auto) [place] # (Auto) Eos # (Auto) Baso # (Auto) Platelet Estimate RBC Morphology PT 14.3 H INR 1.3 APTT 36 D Sodium Potassium Chloride Carbon Dioxide BUN Creatinine Estimated GFR BUN/Creatinine Ratio Glucose Lactate Calcium Phosphorus Magnesium Total Bilirubin Conjugated Bilirubin Unconjugated Bilirubin AST ALT Alkaline Phosphatase Total Protein Albumin Globulin Albumin/Globulin Ratio Triglycerides Cholesterol LDL Cholesterol, Calc HDL Cholesterol Lipase 827 H Nasal Screen MRSA (PCR) U Opiates 300ng/mL cut Ur Oxycodone Screen Urine Methadone Screen Ur Barbiturates Screen U Tricyclic Antidepress Ur Phencyclidine Scrn Ur Amphetamines Screen U Methamphetamines Scrn Ur MDMA Scrn (Ecstasy) U Benzodiazepines Scrn Urine Cocaine Screen U Marijuana (THC) Screen Ethyl Alcohol 443 H* COVID-19 PCR 09/13/20 09/13/20 09/13/20 16:59 19:15 19:50 WBC RBC Hgb Hct MCV MCH MCHC RDW Plt Count Neut % (Auto) Lymph % (Auto) [place] % (Auto) Eos % (Auto) Baso % (Auto) Neut # (Auto) Lymph # (Auto) [place] # (Auto) Eos # (Auto) Baso # (Auto) Platelet Estimate RBC Morphology PT INR APTT Sodium Potassium Chloride Carbon Dioxide BUN Creatinine Estimated GFR BUN/Creatinine Ratio Glucose Lactate 2.2 H Calcium Phosphorus Magnesium Total Bilirubin Conjugated Bilirubin Unconjugated Bilirubin AST ALT Alkaline Phosphatase Total Protein Albumin Globulin Albumin/Globulin Ratio Triglycerides Cholesterol LDL Cholesterol, Calc HDL Cholesterol Lipase Nasal Screen MRSA (PCR) U Opiates 300ng/mL cut Negative Ur Oxycodone Screen Negative Urine Methadone Screen Negative Ur Barbiturates Screen Negative U Tricyclic Antidepress Negative Ur Phencyclidine Scrn Negative Ur Amphetamines Screen Negative U Methamphetamines Scrn Negative Ur MDMA Scrn (Ecstasy) Negative U Benzodiazepines Scrn Negative Urine Cocaine Screen Negative U Marijuana (THC) Screen Positive H Ethyl Alcohol COVID-19 PCR Negative 09/14/20 09/14/20 09/14/20 01:20 04:43 04:43 WBC 3.5 L RBC 3.80 L Hgb 13.6 Hct 39.7 L MCV 104.6 H MCH 35.9 H MCHC 34.4 RDW 13.3 Plt Count 26 L* Neut % (Auto) 64.8 Lymph % (Auto) 22.4 L [place] % (Auto) 11.4 Eos % (Auto) 0.8 L Baso % (Auto) 0.6 Neut # (Auto) 2300 Lymph # (Auto) 800 L [place] # (Auto) 400 Eos # (Auto) 0 Baso # (Auto) 0 Platelet Estimate Decreased on smear RBC Morphology Normal morphology PT INR APTT Sodium 143 Potassium 3.6 Chloride 105 Carbon Dioxide 28 BUN 7 L Creatinine 0.58 L Estimated GFR > 60.0 BUN/Creatinine Ratio 12.1 Glucose 91 Lactate Calcium 8.3 L Phosphorus 3.4 Magnesium 2.2 Total Bilirubin 2.0 H Conjugated Bilirubin 0.0 Unconjugated Bilirubin 1.1 AST 213 H ALT 90 H Alkaline Phosphatase 142 H Total Protein 7.9 Albumin 3.9 Globulin 4.0 Albumin/Globulin Ratio 1.0 Triglycerides 80 Cholesterol 145 LDL Cholesterol, Calc 92 HDL Cholesterol 37 L Lipase 676 H Nasal Screen MRSA (PCR) Negative for mrsa U Opiates 300ng/mL cut Ur Oxycodone Screen Urine Methadone Screen Ur Barbiturates Screen U Tricyclic Antidepress Ur Phencyclidine Scrn Ur Amphetamines Screen U Methamphetamines Scrn Ur MDMA Scrn (Ecstasy) U Benzodiazepines Scrn Urine Cocaine Screen U Marijuana (THC) Screen Ethyl Alcohol COVID-19 PCR Assessment & Plan Assessment & Plan narrative: 1. Acute pancreatitis, alcoholic -Lipase: 827 --> 676 Plan: Continue IV fluids. Will trend labs. Soft mechanical diet for now, advancing as tolerated. 2. Alcohol Dependence with withdrawal Plan: Continue CIWA protocol, Ativan and haldol as needed. Will start discussion with social work for rehab placement upon discharge. 3. Alcoholic hepatitis, acute on chronic -AST: 267--> 213 -ALT: 103--> 90 -ALP: 163--> 142 Plan: As above. 4. Hypokalemia, resolved after replacement. Plan: Will continue to trend labs. 5. Thrombocytopenia, secondary to alcoholic cirrhosis 54 on 04/20/20 --> 38 on 09/13/20 --> 26 on 09/14/20 Plan: Patient is at risk for complications of thrombocytopenia including PVT, DIC, and HIT. He is also at risk for variceal bleeding and would not likely survive that if that were to occur. Currently, his platelets are above 10,000 and have been slowly falling in the last year. Will check fibrinogen, D-dimer, and stool guaiac and administer prophylactic vitamin K 10 mg p.o. q.day x3 days. Will also continue to follow INRs which are currently normal. If platelets fall below 10,000, may be a candidate for cryo and platelet transfusion. 6. Hepatitis-C, untreated Plan: Patient will need to maintain his sobriety prior to receiving treatment. He has already been referred to [facility] for the same on 01/2020. This will be managed as an outpatient. 7. Depression, chronic Plan: Will continue citalopram 10 mg p.o. q.day. 8. Tobacco dependence Plan: Nicotine patch. 9. Polysubstance abuse, history of Plan: Reports no recent history of narcotics, only marijuana upon admission and alcohol. Treatment for alcohol as noted above. Supportive care for the marijuana withdrawal. 10. Sleep apnea, new Plan: BiPAP, will need outpatient sleep study. DVT prophylaxis: SCDs, Lovenox contraindicated secondary to thrombocytopenia. GI prophylaxis: IV Protonix. Code: Full Disposition: Anticipate at least 2 days. COVID: Negative.
[2020-09-14] MEDS: INFLUENZA VACCINE 0.5 ML SYRINGE IM (10:12)
[2020-09-14] MEDS: PHYTONADIONE (VIT K1) 5 MG TABLET 10 MG PO (12:28)
[2020-09-14] MEDS: CITALOPRAM 10 MG TABLET PO (12:28)
[2020-09-14] MEDS: PANTOPRAZOLE 40 MG VIAL IV ×2 (12:28→20:53)
[2020-09-14 12:40] LABS: Fibrinogen 300 mg/dL (211-428)
[2020-09-14 12:42] LABS: D Dimer 525 ng/mL (<230)
[2020-09-14] MEDS: LORazepam 2 MG/ML INJ 4 MG IV ×3 (13:34→15:35)
[2020-09-14 13:49] LABS: Lactate (Lactic Acid) 2.2 mmol/L (0.7-2.1)
--- NOTE | 2020-09-14 14:10 | CM.DANOTE ---
LOADING UNIT OPERATOR Note: Patient is a 54yr old male admitted to I. in alcohol withdrawal. PCP is Dr. Keith. Primary payor is 1)[employer] [facility] 2)Medicaid. LOADING UNIT OPERATOR met with patient this afternoon explained role. Patient reports that he wants to detox and get sober. However, he is clearly struggling and reports that he has not had a drink or cigarette for 2dys. Patient reports he has been to treatment in the past. Patient prefers to detox and then go to intensive outpatient therapy at [facility]. Patient reports that he has been there a few times. Notified patient that once medically stable, patient's usually are sent to complete detox prior at [facility], [place], or [place]. As of today patient shows no interest in any. Explained to patient that LOADING UNIT OPERATOR will be back tomorrow and we will discuss plan with provider. P: Anticipate home with taper dose and confirmation of outpatient set up at [facility] 2) [facility] to complete detox in controlled environment. They do not use librium. Patient will ultimately have to decide. LATOSHA Babin Discharge Planning/Care Management CM Discharge Assessment Start: 09/14/20 14:02 Freq: Status: Active Protocol: Document 09/14/20 14:03 KJS (Rec: 09/14/20 14:10 [facility] [id number]) Discharge Planning Assessment Assigned Rfid Systems Architect LATOSHA Babin Contact Information Larissa Desouza (sister) [phone] Advance Directives? No History Provided By Patient,Medical Record Prior Living Arrangements House Household Members none Type of transporation used prior to Relies on Others admit Comment Patient reports that he does have drivers license but does not drive while drinking which is most of the time. Independent with ADL's Yes Is patient alert and oriented? Yes Needs Assistance With Home Chores / Shopping Comment Patient denies using any DME. Patient currently has someone coming to his residence to walk his dog while he is hospitalized. Caregiver for Another No Comment Pending needs. Transportation Arrangement Pending. Referrals Initiated Other Additional Comment Patient would benefit from continued detox once medically stable. Patient reports during assessment that he would prefer to do outpatient intensive treatment at [facility]? Patient admits to long relationship with alcohol. Paeitn reports that he was sober for approximately 18yrs. Patient reports that he relapsed due to stressor in his life which he does not wish to share during this visit. Patient wants to quit drinking and believes he can. Current use: 1 pint of Black Velvet per day. CIWA scores having been averging 9-15 range. During assessment patient in obvious discomfort from withdrawal. Whiteboard Updated in Patient Room with Yes name and ext. # of Rfid Systems Architect Review Status In Process Next Review Type Continued Stay Review
--- NOTE | 2020-09-14 14:24 | PC.NURSE ---
Addendum entered by John William R.N. 09/14/20 14:44: Correction: Pt initially requiring q2h lorazepam. Original Note: Pt initially requiring q1h lorazepam for ciwa scores of 8. Increasing symptoms noted upon awakening from nap ~1200 (diaphoresis, increased tremor/anxiety). Dr. Garcia on rounds at this time. Reviewed assessment findings, CIWA scores, UOP/I&O/bladder scan vol, VS, medication dosing, labs. Orders received for increased dosing of ativan, repeat labs, and instructed to place lucio catheter if needed for urinary retention. Pt is open to seeking inpatient treatment for alcohol when stable. Bed alarm, seizure precautions.
[2020-09-14 15:41] LABS: Reflexed Lactate in 2 Hours Y
[2020-09-14 16:42] LABS: Lactate 2HR (Lactic Acid Rflx) 1.9 mmol/L (0.7-2.1)
[2020-09-14] MEDS: ACETAMINOPHEN 325 MG TABLET 650 MG PO ×2 (18:43→22:42)
--- NOTE | 2020-09-14 22:28 | PC.NURSE ---
notified re temp 101.7, orders noted.
--- NOTE | 2020-09-14 22:35 | PM.EVENT ---
Event Note Date Patient Seen: 09/14/20 Time Patient Seen: 22:35 Event Note: Was called by nursing regarding temperature of 101.7. Patient has been going through withdrawals throughout the day, total of 20 mg Ativan has been given. CIWA now less than 9 for the first time since admission. He is reportedly more comfortable but still diaphoretic, tremulous, and nauseated. Ordered blood cultures x 2 and urine culture as well as prophylactic levofloxaxin while awaiting results. RN will give tylenol x 1 now as well. Will watch closely and continue ativan per CIWA protocol.
[2020-09-14] MEDS: levoFLOXacin 750 MG/150 ML PIGGYBACK 100 MG IV (23:26)
[2020-09-15] VITALS (83 sets, daily range): BP systolic 104–185; BP diastolic 66–114; PULSE 22–118; RESP 16–84; TEMP 36.4–38.1; O2SAT 88–98
[2020-09-15] MEDS: LORazepam 2 MG/ML INJ IV ×13 (02:27→21:50)
[2020-09-15] MEDS: LACTATED RINGERS 1,000 ML 300 ML IV ×2 (02:39→06:11)
[2020-09-15 05:12] LABS: INR 1.4 (0.9-1.3); Prothrombin Time 16.1 SECONDS (10.1-12.7)
[2020-09-15 05:16] LABS: Lactate (Lactic Acid) 1.2 mmol/L (0.7-2.1)
[2020-09-15 05:18] LABS: Alanine Aminotransferase 68 IU/L (<50); Albumin 3.4 g/dL (3.5-5.0); Albumin Globulin Ratio 0.9 (1.0-2.8); Alkaline Phosphatase 119 U/L (38-126); Aspartate Aminotransferase 161 IU/L (17-59); BUN Creatinine Ratio 16.3 (6-22); Bilirubin Total 2.8 mg/dL (0.2-1.3); Bilirubin Unconjugated 1.7 mg/dL (0.0-1.1); Blood Urea Nitrogen 8 mg/dL (9-20); Calcium 8.9 mg/dL (8.4-10.2); Carbon Dioxide 31 mmol/L (22-32); Chloride 101 mmol/L (98-107); Estimated Glomerular Filt Rate > 60.0 mL/min (>60); Globulin 3.7 g/dL (1.7-4.1); Glucose 93 mg/dL (70-100); HEMOLYSIS < 15 (0-50); Lipase 574 U/L (23-300); Magnesium 1.6 mg/dL (1.6-2.3); Phosphorous 2.3 mg/dL (2.5-4.5); Potassium 3.2 mmol/L (3.4-5.1); Sodium 136 mmol/L (137-145); Total Protein 7.1 g/dL (6.3-8.2)
[2020-09-15 05:21] LABS: Basophils Absolute Auto 0 /uL (0-100); Basophils Percent Auto 0.7 % (0-2); Eosinophils Absolute Auto 0 /uL (0-450); Eosinophils Percent Auto 1.7 % (2-4); Hematocrit 37.1 % (41-53); Hemoglobin 12.9 g/dL (13.5-17.5); Lymphocytes Absolute Auto 500 /uL (1100-4500); Lymphocytes Percent Auto 26.9 % (25-40); Mean Corpuscular HGB Conc 34.7 % (30-36); Mean Corpuscular Hemoglobin 36.2 PG (26-34); Mean Corpuscular Volume 104.3 fL (80-100); Monocytes Absolute Auto 300 /uL (0-900); Monocytes Percent Auto 14.7 % (3-14); Neutrophils Absolute Auto 1100 /uL (1500-7000); Red Blood Cell Count 3.56 X10^6/uL (4.5-5.9); Red Cell Distribution Width 13.2 % (11.6-14.8)
[2020-09-15 05:35] LABS: Platelet Count 15 X10^3/uL (150-400)
[2020-09-15 05:37] LABS: Add Manual Diff / Slide Review SLIDE REVIEW
[2020-09-15 05:43] LABS: Platelet Estimate Decreased on smear; RBC Morphology Normal Morphology
--- NOTE | 2020-09-15 06:37 | PC.NURSE ---
Pt alert and oriented x3. Confused on date/day. Pt requiring Lorazepam 4mg per protocol for CIWA scores of 11-13. Pt on BIPAP throughout the night. Pt off BIPAP and on NC at 4L when awake. Pt has no complaints of pain. Some urinary retention but voiding to urinal. Some stress incontinence. Scds applied. Seizure pads in place. Bed alarm on. Call light within reach
[2020-09-15] MEDS: NICOTINE 14 PATCH 14 MG TOP (08:04)
[2020-09-15] MEDS: CITALOPRAM 10 MG TABLET PO (08:05)
[2020-09-15] MEDS: PANTOPRAZOLE 40 MG VIAL IV ×2 (08:05→20:42)
[2020-09-15] MEDS: FOLIC ACID 1 MG TABLET PO (08:05)
[2020-09-15] MEDS: THIAMINE 100 MG TABLET PO (08:05)
[2020-09-15] MEDS: MULTIVITAMIN 1 TABLET 1 TAB PO (08:05)
[2020-09-15] MEDS: DOCUSATE 100 MG CAPSULE PO (08:50)
[2020-09-15] MEDS: PHYTONADIONE (VIT K1) 5 MG TABLET 10 MG PO (08:51)
[2020-09-15] MEDS: SODIUM CHLORIDE 0.45% 1,000 ML 125 ML IV (08:51)
[2020-09-15] MEDS: POTASSIUM PHOSPHATE 15 MMOL in DEXTROSE 5% IN WATER 250 ML 63.75 ML IV (08:52)
[2020-09-15] MEDS: MAGNESIUM SULFATE 2 GM/50 ML PIGGYBACK IV (08:53)
[2020-09-15] MEDS: POTASSIUM CHLORIDE 20 MEQ TAB 40 MEQ PO (09:01)
[2020-09-15] MEDS: polyethylene glycoL 3350 17 GM POWD.PACK PO (09:02)
[2020-09-15] MEDS: ONDANSETRON 4 MG/2 ML INJ IV (12:08)
--- NOTE | 2020-09-15 13:52 | PC.NURSE ---
CIWA scores ranging 6-11 today. Pt is oriented although unable to recall today's day/date. He feels like he needs to have a BM and reports feeling constipated. He was unable to stand and transfer to BSC this AM and was assisted onto the bedpan with no results. Bowel med regimen instituted. This afternoon, he was agreeable to use the justin lift to get OOB to BSC. He was again unsuccessful and reported feeling gaggy and requested an emesis bag. Justin'd back to bed and repositioned. Administered PRN ativan per protcol as well as zofran. Pt was able to eat yogurt and peaches for lunch. After, requested bipap back on and took a nap. Pt appears comfortable at this time and is in SR 80s BP 135/90 RR 21 SPO2 94% on 30% FIO2 16/6 bipap. Seizure precautions, bed alarm, call light in reach.
[2020-09-15 14:36] LABS: Add Manual Diff / Slide Review NO; Basophils Absolute Auto 0 /uL (0-100); Basophils Percent Auto 1.4 % (0-2); Eosinophils Absolute Auto 0 /uL (0-450); Eosinophils Percent Auto 1.1 % (2-4); Hemoglobin 12.9 g/dL (13.5-17.5); Lymphocytes Absolute Auto 600 /uL (1100-4500); Lymphocytes Percent Auto 22.1 % (25-40); Mean Corpuscular HGB Conc 34.7 % (30-36); Mean Corpuscular Hemoglobin 36.3 PG (26-34); Mean Corpuscular Volume 104.5 fL (80-100); Monocytes Absolute Auto 300 /uL (0-900); Monocytes Percent Auto 12.8 % (3-14); Neutrophils Absolute Auto 1700 /uL (1500-7000); Neutrophils Percent Auto 62.6 % (50-75); Red Blood Cell Count 3.55 X10^6/uL (4.5-5.9); Red Cell Distribution Width 13.7 % (11.6-14.8); White Blood Cell Count 2.7 X10^3/uL (4.5-11.0)
[2020-09-15 14:38] LABS: Platelet Count 18 X10^3/uL (150-400)
[2020-09-15 14:40] LABS: Platelet Estimate Decreased on smear
[2020-09-15 14:50] LABS: HEMOLYSIS < 15 (0-50); Potassium 3.3 mmol/L (3.4-5.1)
--- NOTE | 2020-09-15 15:21 | CM.DPC ---
DCP/continued: Reviewed chart. This AM patient on BIPAP and continues with high CIWA scores. Spoke with Dr. Keith about detox options. She is aware that if patient medically stable to detox at [facility] that he could go there only with Ativan he could not go on Librium taper. She is aware and anticipates that his detox will most likely be completed here due to illness. Notified provider that [facility] team will follow to provide resources for alcohol programs. P: [facility] team to continue to follow closely. LATOSHA Babin
[2020-09-15] MEDS: POTASSIUM CHLORIDE 20 MEQ TAB PO (15:46)
[2020-09-15] MEDS: POTASSIUM CHLORIDE 20 MEQ in SODIUM CHLORIDE 0.45% 1,000 ML 125 MEQ IV (15:48)
--- NOTE | 2020-09-15 16:58 | PC.NURSE ---
Evening shift note: Pt A/Ox2, currently on Bipap settings FiO2 30% 16/6. Pt sister, Connie is at bedside discussing code status with pt. currently pt is a full code, POLST form provided to pt and sister to complete, notified PCP that the form will be completed and ready for her signature. CIWA scores ranging 6-15 today. Administered PRN ativan per protcol for CIWA score of 15. Pt appears comfortable at this time and is in ST 100s BP 160/95 RR 21 SPO2 94% on 30% FIO2 16/6 bipap. Seizure precautions, bed alarm, call light in reach, will continue to monitor.
--- NOTE | 2020-09-15 19:27 | PM.PN.1 ---
Subjective Subjective Date Patient Seen: 09/15/20 Time Patient Seen: 08:03 Interval history: 70 minutes was spent with patient and discussion with his sister and reviewing chart, treatment thus far and diagnostic and coordinating care. Patient required 17 mg in the 10 hours prior to when I saw him of lorazepam to treat his withdrawal symptoms. The patient is awake and alert and recognizes who I a.m. and is attempting to feed himself but having difficulty because a shaking. He denies any complaints of pain or difficulty breathing. Patient has not had further fever. Patient has not had any evidence of ongoing blood loss. When his sister found him and brought him to the ER he did have crusted blood around his nares. He states that he had been having blood per rectum but he did have a formed stool here and unfortunately this was not tested for occult blood. He has not had a bowel movement since. He feels that he needs to have a bowel movement. His platelets decreased to 15 today. Exam Vital Signs (past 8 hours): - 09/15/20 11:30 09/15/20 12:00 09/15/20 12:02 Temperature Pulse Rate 98 H 102 H 101 H Respiratory Rate 31 H 25 H Blood Pressure 178/101 H Pulse Oximetry 93 93 93 09/15/20 12:03 09/15/20 12:28 09/15/20 12:30 Temperature Pulse Rate 103 H 107 H 104 H Respiratory Rate 22 28 H 29 H Blood Pressure 178/101 H 162/109 H 162/109 H Pulse Oximetry 93 09/15/20 12:43 09/15/20 13:00 09/15/20 13:24 Temperature Pulse Rate 101 H 103 H 87 Respiratory Rate 27 H 28 H 20 Blood Pressure 167/93 H 157/99 H 135/90 Pulse Oximetry 92 93 09/15/20 13:30 09/15/20 14:00 09/15/20 14:30 Temperature Pulse Rate 82 85 82 Respiratory Rate 19 20 20 Blood Pressure 104/66 Pulse Oximetry 97 93 94 09/15/20 15:00 09/15/20 15:30 09/15/20 16:00 Temperature 98.7 F Pulse Rate 94 H 91 H 98 H Respiratory Rate 21 19 27 H Blood Pressure 128/85 156/96 H Pulse Oximetry 95 95 90 L 09/15/20 16:30 09/15/20 16:32 09/15/20 17:00 Temperature Pulse Rate 90 95 H 102 H Respiratory Rate 19 18 21 Blood Pressure 158/95 H 160/105 H Pulse Oximetry 88 L 95 09/15/20 17:19 09/15/20 17:22 09/15/20 17:30 Temperature Pulse Rate 103 H 101 H 95 H Respiratory Rate 23 27 H 30 H Blood Pressure 168/109 H 165/111 H Pulse Oximetry 91 92 91 09/15/20 17:40 09/15/20 17:50 09/15/20 18:00 Temperature Pulse Rate 92 H 103 H 106 H Respiratory Rate 28 H 20 28 H Blood Pressure 179/106 H 179/104 H Pulse Oximetry 93 92 09/15/20 18:01 09/15/20 18:14 09/15/20 18:30 Temperature 99.2 F Pulse Rate 104 H 100 H 102 H Respiratory Rate 30 H 27 H 30 H Blood Pressure 176/111 H 159/105 H Pulse Oximetry 91 91 92 09/15/20 19:00 09/15/20 19:06 09/15/20 19:07 Temperature 98.8 F Pulse Rate 86 82 83 Respiratory Rate 22 20 20 Blood Pressure 144/91 H 144/97 H Pulse Oximetry 90 L 93 93 09/15/20 19:18 Temperature Pulse Rate Respiratory Rate Blood Pressure 144/91 H Pulse Oximetry Fraction of Inspired Oxygen 30 Oxygen Delivery Method BiPAP Oxygen Flow Rate 0 Narrative Exam Narrative: Patient is afebrile with vital signs stable with heart rate in the upper 90s. Patient is alert and oriented to person place and remembers my name Bilateral eyes with mattering. Crusting at near ease of dry blood Oropharynx shows mucous membranes moist and pink with no evidence of lesions Neck is supple Chest: Clear to auscultation with prolonged expiratory phase but no wheezes rhonchi or crackles Cor: Regular rate and rhythm in the 90s Abdomen: Positive bowel sounds, soft, nontender No masses Extremities no edema, pulses intact Skin no rashes Objective Labs Result Diagrams: 09/15/20 14:20 09/15/20 14:20 Labs: Laboratory Results - last 24 hr 09/15/20 09/15/20 09/15/20 04:43 04:43 04:43 WBC 2.0 L RBC 3.56 L Hgb 12.9 L Hct 37.1 L MCV 104.3 H MCH 36.2 H MCHC 34.7 RDW 13.2 Plt Count 15 L* Neut % (Auto) 56.0 Lymph % (Auto) 26.9 Mccreary % (Auto) 14.7 H Eos % (Auto) 1.7 L Baso % (Auto) 0.7 Neut # (Auto) 1100 L Lymph # (Auto) 500 L Mccreary # (Auto) 300 Eos # (Auto) 0 Baso # (Auto) 0 Platelet Estimate Decreased on smear RBC Morphology Normal morphology PT 16.1 H INR 1.4 H Sodium 136 L Potassium 3.2 L Chloride 101 Carbon Dioxide 31 BUN 8 L Creatinine 0.49 L Estimated GFR > 60.0 BUN/Creatinine Ratio 16.3 Glucose 93 Lactate Calcium 8.9 Phosphorus 2.3 L D Magnesium 1.6 Total Bilirubin 2.8 H Conjugated Bilirubin 0.0 Unconjugated Bilirubin 1.7 H AST 161 H ALT 68 H Alkaline Phosphatase 119 Total Protein 7.1 Albumin 3.4 L Globulin 3.7 Albumin/Globulin Ratio 0.9 L Lipase 574 H 09/15/20 09/15/20 09/15/20 04:43 14:20 14:20 WBC 2.7 L RBC 3.55 L Hgb 12.9 L Hct 37.0 L MCV 104.5 H MCH 36.3 H MCHC 34.7 RDW 13.7 Plt Count 18 L* Neut % (Auto) 62.6 Lymph % (Auto) 22.1 L Mccreary % (Auto) 12.8 Eos % (Auto) 1.1 L Baso % (Auto) 1.4 Neut # (Auto) 1700 Lymph # (Auto) 600 L Mccreary # (Auto) 300 Eos # (Auto) 0 Baso # (Auto) 0 Platelet Estimate Decreased on smear RBC Morphology Not Reportable PT INR Sodium Potassium 3.3 L Chloride Carbon Dioxide BUN Creatinine Estimated GFR BUN/Creatinine Ratio Glucose Lactate 1.2 Calcium Phosphorus Magnesium Total Bilirubin Conjugated Bilirubin Unconjugated Bilirubin AST ALT Alkaline Phosphatase Total Protein Albumin Globulin Albumin/Globulin Ratio Lipase Assessment & Plan Assessment & Plan narrative: 54-year-old male with severe alcoholism with acute withdrawal and admitted for the same Plan: Will continue with CIWA protocol. Once patient is more cognizant and alert we will discuss next treatment. At the time of evaluation yesterday he stated that he would go to outpatient rehab. I think likely this will fail. We will discuss this further as he becomes more cognizant. I discussed the gravity of his condition with his sister who is his durable power of contracts attorney. They had considered possible hospice consult. Pulsed form is filled out. We will continue to monitor and see how he does if he still is acutely withdrawing from alcohol. Assessment 2. Acute pancreatitis secondary to alcoholism labs are improving despite getting soft foods starting yesterday Plan: Will continue to monitor will recheck tomorrow patient denies any pain Assessment 3. Hepatitis-C currently not being treated due to alcohol abuse Assessment number for severe thrombocytopenia suspect directly related to alcohol abuse and bone marrow suppression. He is on no medications that could have caused this to worsen. His last platelet count was in March and he was 55,000. He has no active bleeding. I did discuss with Dr. russo as well as Hematology and at this point we will not transfuse him with platelets and LEs he develops bleeding. We will guaiac his stools. We will recheck platelets today at 2:00 a.m.. Assessment 5. Hypokalemia Plan will replace his potassium Assessment 6. Hypo magnesemia Plan: Will replace magnesium Assessment 7. Hypophosphatemia Plan: Will replace phosphate Assessment 8. Known varices of the esophagus Plan: Will continue to monitor closely. Will continue to monitor platelet count Assessment 8. History of depression anxiety Plan: Continue on citalopram COVID-19 COVID-19 status: Negative Result date/Date tested (Pos, Neg/Pending): 09/13/20
[2020-09-15] MEDS: levoFLOXacin 750 MG/150 ML PIGGYBACK 100 MG IV (21:49)
[2020-09-16] VITALS (80 sets, daily range): BP systolic 98–183; BP diastolic 60–114; PULSE 80–143; RESP 17–42; TEMP 36.3–38.3; O2SAT 86–97
[2020-09-16] MEDS: LORazepam 2 MG/ML INJ IV ×7 (00:46→21:03)
[2020-09-16] MEDS: POTASSIUM CHLORIDE 20 MEQ in SODIUM CHLORIDE 0.45% 1,000 ML 150 MEQ IV ×2 (01:24→08:10)
[2020-09-16] MEDS: MORPHINE 2 MG/ML INJ IV (01:25)
--- NOTE | 2020-09-16 02:52 | PC.NURSE ---
Addendum entered by Jadyn Yanez R.N. 09/16/20 06:06: Patient was able to doze, CIWA done to 5 after Ativan given, Bi-pap removed mid-shift, placed on 3L NC, only noted brief periods of apnea desatting to mid 80s and returning to mid 90s quickly. Original Note: Manager Process Notes-Patient asleep at midnight, woke up at 0045 restless, anxious, and mildly agitated, oriented to [place] was at the airport and can state the year. ST, HTN, see vital trends, 4mg IV Ativan given per protocol for CIWA 11, at 0130, he is still restless and verbally asks can I have something for anxiety? Also c/o right shoulder pain from work out additional 2mg IV Ativan given along with 2mg IV morphine. Incontinent urine, but will also use urinal with assist.
[2020-09-16 05:18] LABS: INR 1.6 (0.9-1.3)
[2020-09-16 05:25] LABS: Basophils Absolute Auto 0 /uL (0-100); Basophils Percent Auto 0.8 % (0-2); Eosinophils Absolute Auto 0 /uL (0-450); Hematocrit 36.3 % (41-53); Hemoglobin 12.5 g/dL (13.5-17.5); Lymphocytes Absolute Auto 600 /uL (1100-4500); Mean Corpuscular HGB Conc 34.4 % (30-36); Mean Corpuscular Hemoglobin 35.9 PG (26-34); Mean Corpuscular Volume 104.3 fL (80-100); Monocytes Absolute Auto 300 /uL (0-900); Monocytes Percent Auto 11.5 % (3-14); Neutrophils Absolute Auto 1600 /uL (1500-7000); Neutrophils Percent Auto 62.7 % (50-75); Red Blood Cell Count 3.48 X10^6/uL (4.5-5.9); Red Cell Distribution Width 13.2 % (11.6-14.8); White Blood Cell Count 2.5 X10^3/uL (4.5-11.0)
[2020-09-16 05:31] LABS: Alanine Aminotransferase 63 IU/L (<50); Albumin 3.3 g/dL (3.5-5.0); Albumin Globulin Ratio 0.9 (1.0-2.8); Alkaline Phosphatase 113 U/L (38-126); Amylase 113 U/L (30-110); Aspartate Aminotransferase 130 IU/L (17-59); BUN Creatinine Ratio 16.3 (6-22); Bilirubin Conjugated 0.3 md/dL (0.0-0.3); Bilirubin Total 3.3 mg/dL (0.2-1.3); Bilirubin Unconjugated 1.8 mg/dL (0.0-1.1); Blood Urea Nitrogen 7 mg/dL (9-20); Calcium 8.3 mg/dL (8.4-10.2); Carbon Dioxide 27 mmol/L (22-32); Chloride 98 mmol/L (98-107); Estimated Glomerular Filt Rate > 60.0 mL/min (>60); Globulin 3.7 g/dL (1.7-4.1); Glucose 93 mg/dL (70-100); HEMOLYSIS < 15 (0-50); Lipase 361 U/L (23-300); Magnesium 1.5 mg/dL (1.6-2.3); Phosphorous 2.8 mg/dL (2.5-4.5); Potassium 3.4 mmol/L (3.4-5.1); Sodium 130 mmol/L (137-145)
[2020-09-16 05:48] LABS: Platelet Count 17 X10^3/uL (150-400)
[2020-09-16 05:49] LABS: Add Manual Diff / Slide Review SLIDE REVIEW; Platelet Estimate Decreased on smear; RBC Morphology Normal Morphology
[2020-09-16 05:52] LABS: Alanine Aminotransferase 63 IU/L (<50); Albumin 3.4 g/dL (3.5-5.0); Albumin Globulin Ratio 0.9 (1.0-2.8); Alkaline Phosphatase 115 U/L (38-126); Aspartate Aminotransferase 132 IU/L (17-59); BUN Creatinine Ratio 15.9 (6-22); Bilirubin Total 3.3 mg/dL (0.2-1.3); Blood Urea Nitrogen 7 mg/dL (9-20); Calcium 8.4 mg/dL (8.4-10.2); Carbon Dioxide 27 mmol/L (22-32); Chloride 97 mmol/L (98-107); Estimated Glomerular Filt Rate > 60.0 mL/min (>60); Globulin 3.6 g/dL (1.7-4.1); Glucose 93 mg/dL (70-100); HEMOLYSIS < 15 (0-50); Potassium 3.4 mmol/L (3.4-5.1); Sodium 131 mmol/L (137-145)
[2020-09-16] MEDS: FOLIC ACID 1 MG TABLET PO (08:11)
[2020-09-16] MEDS: NICOTINE 14 PATCH 14 MG TOP (08:11)
[2020-09-16] MEDS: PANTOPRAZOLE 40 MG VIAL IV ×2 (08:11→20:47)
[2020-09-16] MEDS: MULTIVITAMIN 1 TABLET 1 TAB PO (08:11)
[2020-09-16] MEDS: polyethylene glycoL 3350 17 GM POWD.PACK PO (08:11)
[2020-09-16] MEDS: DOCUSATE 100 MG CAPSULE PO (08:12)
[2020-09-16] MEDS: HYDROCODONE/ACET 5/325 TABLET 1 TAB PO ×2 (08:12→12:21)
[2020-09-16] MEDS: THIAMINE 100 MG TABLET PO (08:12)
[2020-09-16] MEDS: PHYTONADIONE (VIT K1) 5 MG TABLET 10 MG PO (08:12)
[2020-09-16] MEDS: CITALOPRAM 10 MG TABLET PO (08:12)
[2020-09-16] MEDS: MAGNESIUM SULFATE 2 GM/50 ML PIGGYBACK IV (08:29)
[2020-09-16] MEDS: POTASSIUM CHLORIDE 20 MEQ TAB 40 MEQ PO (09:37)
--- NOTE | 2020-09-16 10:47 | PT.IIE ---
Current Diagnoses Alcohol dependence with withdrawal, unspecified (09/13/20) Alcohol induced acute pancreatitis without necrosis or infection (09/13/20) Surgical History (Last Reviewed 09/13/20 @ 17:50 by Berna Salazar DO) Hiatal hernia (Resolved) Periumbilical hernia (Resolved) Medical History (Last Reviewed 09/13/20 @ 17:50 by Berna Salazar DO) Headache (Chronic) Hearing loss (Chronic) Hepatitis C (Acute) Vision disorder (Chronic) Physical Therapy Inpatient Evaluation/Re-Eval M1 PT/OT-IP Prior Functional Status Start: 09/16/20 13:09 Freq: NEEDED Status: Active Protocol: Document 09/16/20 13:10 CGR (Rec: 09/16/20 13:25 CGR [id number]) Medical Review Prior Functional Status Medical History Reviewed Yes Communication Pt is an effective verbal communicator. Mobility and Gait Pt was IND in all mobility but states R knee pain from prior to hospital admission. Activities of Daily Living and IADL's Pt was IND in all ADLs. Social History Household Members none Living Arrangements House Number of Floors (Floors) One Floor Number of Stairs To Enter/Railing? 7 steps to enter with L railing. Home Environment Standard Height Toilet,Walk in Shower,Tub/Shower Home Equipment Straight Cane,Shower Seat with Backrest,Grab Bars Near Toilet,Grab Bars In Shower Employment Status Unknown Additional Social History Comment Per chart, pt was working as a warehouse delivery manager. Pt's sister lives nearby. M1 PT/OT-IP Prior Functional Status Start: 09/16/20 13:33 Freq: NEEDED Status: Active Protocol: Document 09/16/20 10:47 AB (Rec: 09/16/20 13:43 AB [id number]) Medical Review Prior Functional Status Medical History Reviewed Yes Communication able to make needs known; initailly very sleepy and requires increase time to respond to questions Mobility and Gait pt stated that he is independent with all mobilities and ambulation without AD Activities of Daily Living and IADL's Pt was IND in all ADLs. Social History Household Members none Living Arrangements House Number of Floors (Floors) One Floor Number of Stairs To Enter/Railing? 7 steps to enter with L railing. Home Environment Standard Height Toilet,Walk in Shower,Tub/Shower Home Equipment Straight Cane,Shower Seat with Backrest,Grab Bars Near Toilet,Grab Bars In Shower Employment Status Unknown Additional Social History Comment Per chart, pt was working as a warehouse delivery manager. Pt's sister lives nearby. M2 PT-IP Current Condition Start: 09/16/20 13:33 Freq: NEEDED Status: Active Protocol: Document 09/16/20 10:47 AB (Rec: 09/16/20 13:43 AB [id number]) Physical Therapy Current Condition Current Condition Evaluation Date 09/16/20 Treatment Diagnosis alcoholic pancreatitis; alcoholic withdrawal; difficulty in walking Onset Date 09/13/20 Precautions Other Precautions falls M3 PT-IP Subjective Start: 09/16/20 13:33 Freq: NEEDED Status: Active Protocol: Document 09/16/20 10:47 AB (Rec: 09/16/20 13:43 AB [id number]) Subjective Physical Therapy Visit Type Type Initial Evaluation Visit Start Time 10:47 Visit Stop Time 11:31 Total Visit Minutes 44 Number of ANESTHESIA DIRECTOR Visits 0 M4 PT-IP Mobility and Gait Start: 09/16/20 13:33 Freq: NEEDED Status: Active Protocol: Document 09/16/20 10:47 AB (Rec: 09/16/20 13:43 AB [id number]) PT-Bed Mobility Assessment Supine to Sit Supine to Sit Maximum Assistance,2 Person Assistance,Bedrails Scooting Scooting to Edge of Bed Dependent PT-Transfer Assessment Sit to and From Stand Sit to and from Stand Maximum Assistance,2 Person Assistance,Use of Upper Extremities Equipment Transfer Assistive Device Gait Belt,Front Wheeled Walker Orthotic/Prosthetic Devices or Brace: No Transfers Transfer Technique Mechanical Lift Transfer Ability Level of Assist Total Assistance Comments Mobility Comments completed supinet o sit max A x 2 and max cues. pt requiring mod to max A to maintain sitting balance on EOB. presents with increase posterior trunk lean and has difficulty following directions when ask to lean forwards and correct position. required max to total A for scooting to EOB. completed sit to stand x 2 max A x 2-3 and max cues. pt pulled from FWW to stand. increase overall body tremors during standing. tolerated ~ 2-3 min of standing requiring max A x 2-3. attempted to transfer to chair using FWW but unable to take steps. instructed to sit back on EOB. assisted transfer to chair using mechanical lift. required max A x 2-3 for positioning. Left pt with OT . Gait Assessment Comments Gait Comments unable at this time PT-Balance Assessment Sitting Balance and Reactions Static Sitting Balance Ability Fair Dynamic Sitting Balance Ability Poor Standing Balance and Reactions Static Standing Balance Ability Poor Dynamic Standing Balance Ability Poor Device Used FWW M5 PT-IP Objective Assessments Start: 09/16/20 13:33 Freq: NEEDED Status: Active Protocol: Document 09/16/20 10:47 AB (Rec: 09/16/20 13:43 AB [id number]) Orientation Orientation/Cognition Level of Alertness Alert Orientation Name,Month,Year,Place, Situation Safety Awareness Decreased Safety Awareness Comments initially was sleepy but became awake upon sitting Gross Range of Motion Lower Extremity ROM Assessment Within Functional Limits Strength Lower Extremity Strength Assessment Right Impaired Knee 3+/5 Muscle Tone Comments Muscle Tone Comments tremors whole body during standing M6 PT-IP Treatment Start: 09/16/20 13:33 Freq: NEEDED Status: Active Protocol: Document 09/16/20 10:47 AB (Rec: 09/16/20 13:43 AB [facility]) Physical Therapy Treatment Education Education Provided Safety M7 PT-IP Assessment and Plan Start: 09/16/20 13:33 Freq: NEEDED Status: Active Protocol: Document 09/16/20 10:47 AB (Rec: 09/16/20 13:43 AB [email or web address]) PT Summary Assessment and Plan Potential Rehabilitation Potential Fair Status of Condition at Evaluation Evolving Summary Impairments Pain,ROM,Strength,Balance, Coordination,Sensation,Tone, Cognition,Bed Mobility, Transfers,Gait,Activity Tolerance Assessment Summary pt requiring max A x 3 for mobility and is requiring total A for transfers at this time and unable to ambulate. pt will require SNF rehab to improve strength and mobility. Goals Bed Mobility Goal Minimal Assistance Transfer Goal Minimal Assistance,Front Wheeled Walker Gait Goal Minimal Assistance,Front Wheel Walker Gait Distance 75 Days to Meet Goals 10 Frequency of Treatment Frequency Of Treatment Once a Day Treatment Plan Physical Therapy Treatment Plan Bed Mobility Training,Transfer Training,Gait Training, Therapeutic Exercise,Balance Retraining,Discharge Planning, Hot or Cold Pack,Neuromuscular Re-ed,Coordination Retraining Recommendations To Nursing Amount of Assist Needed Mechanical Lift Discharge Recommendations PT Discharge Recommendations SNF Rehab Transportation Needs at Discharge Wheelchair/Cabulance
--- NOTE | 2020-09-16 11:45 | OT.IP.EVAL ---
Current Diagnoses Alcohol dependence with withdrawal, unspecified (09/13/20) Alcohol induced acute pancreatitis without necrosis or infection (09/13/20) Past Medical History (Last Reviewed 09/13/20 @ 17:50 by Berna Salazar DO) Headache (Chronic) Hearing loss (Chronic) Hepatitis C (Acute) Vision disorder (Chronic) Surgical History (Last Reviewed 09/13/20 @ 17:50 by Berna Salazar DO) Hiatal hernia (Resolved) Periumbilical hernia (Resolved) Occupational Therapy Inpatient Evaluation/Re-Eval M1 PT/OT-IP Prior Functional Status Start: 09/16/20 13:09 Freq: NEEDED Status: Active Protocol: Document 09/16/20 13:10 CGR (Rec: 09/16/20 13:25 CGR [id number]) Medical Review Prior Functional Status Medical History Reviewed Yes Communication Pt is an effective verbal communicator. Mobility and Gait Pt was IND in all mobility but states R knee pain from prior to hospital admission. Activities of Daily Living and IADL's Pt was IND in all ADLs. Social History Household Members none Living Arrangements House Number of Floors (Floors) One Floor Number of Stairs To Enter/Railing? 7 steps to enter with L railing. Home Environment Standard Height Toilet,Walk in Shower,Tub/Shower Home Equipment Straight Cane,Shower Seat with Backrest,Grab Bars Near Toilet,Grab Bars In Shower Employment Status Unknown Additional Social History Comment Per chart, pt was working as a night warehouse selector. Pt's sister lives nearby. M2 OT-IP Current Condition Start: 09/16/20 13:09 Freq: Status: Active Protocol: Document 09/16/20 13:10 CGR (Rec: 09/16/20 13:25 CGR [id number]) Occupational Therapy Current Condition Current Condition Evaluation Date 09/16/20 Treatment Diagnosis Alcoholic pancreatitis, hepatitis with cirrhosis. Diagnosis Onset Date 09/13/20 M3 OT- IP Subjective and Pain Start: 09/16/20 13:09 Freq: Status: Active Protocol: Document 09/16/20 13:10 CGR (Rec: 09/16/20 13:25 CGR [id number]) OT- Subjective Occupational Therapy Visit Type Type Initial Evaluation Visit Start Time 10:57 Visit Stop Time 11:45 Total Visit Minutes 48 Notes Partial cotreat with P.T. Occupational Therapy Visit Comments Patient Comments I want to put on my pants. OT Pain Assessment Pain When Pain Assessed During Mobility Pain Present Pain Present Pain Reported Location Right Knee Scale Used did not rate Management Techniques Modification of Treatment,Re- positioning M4 OT- IP ADL's Start: 09/16/20 13:09 Freq: Status: Active Protocol: Document 09/16/20 13:10 CGR (Rec: 09/16/20 13:25 CGR [id number]) OT [id number] Comments OT Self-Feeding Comments not meal time but pt is able to drink water with straw with extra time to get cup to mouth. OT ADL-Grooming General Evaluation Grooming Ability Moderate Assistance Areas Needing Assistance Face Washing Comments OT Grooming Comments supine in bed OT ADL-Oral Care General Eval Oral Care Ability Maximum Assistance Areas of Assistance Brushing Teeth Comments Oral Care Comments Pt provided with ample extra time to perform task and assisted with tooth brush to mouth x3 but he was unable to coordinate movement for brushing of teeth. OT ADL-Dressing General Eval Lower Body Dressing Ability Total Assistance Areas Needing Assistance Socks OT ADL-Toileting Comments OT Toileting Comments not performed OT ADL-Bathing Comments OT Bathing Comments not performed M5 OT- IP IADL's Start: 09/16/20 13:09 Freq: Status: Active Protocol: Document 09/16/20 13:10 CGR (Rec: 09/16/20 13:25 CGR [id number]) OT-Instrumental Activities of Daily Living Deficits IADL Deficits Identified Deficits Home Safety Awareness Awareness of Need for Assistance at Home Decreased Awareness Ability to Problem Solve Emergency Unable to Problem Solve Situations M6 OT- IP Functional Cognition Start: 09/16/20 13:09 Freq: Status: Active Protocol: Document 09/16/20 13:10 CGR (Rec: 09/16/20 13:25 CGR [id number]) Cognitive Factors Limiting Selfcare Function Cognitive Ability Level of Alertness Alert Patient Orientation Name,Month,Date,Year,Place, Situation Attention Span Ability Capable of Focused Attention, Unable to Sustain Attention Ability to Follow Commands Able to Follow One Step Commands with Increased Time, Able to Follow One Step Commands with Repetition Cognitive Comments Cognitive Assessment Comments Noted cognitive deficits typical with alcohol withdrawl . Will continue to follow for consistent cognitive deficits. OT- Vision and Hearing OT- Hearing Assessment OT- Hearing Assessment WFL OT- Vision Assessment Visual Acuity WFL Vision Assessment Comments Pt unable to follow to perform tracking or convergence. M7 OT- IP Mobility and Balance Start: 09/16/20 13:09 Freq: Status: Active Protocol: Document 09/16/20 13:10 CGR (Rec: 09/16/20 13:25 CGR [id number]) OT- Bed Mobility Assessment Rolling Type of Rolling Log Rolling,Roll to Left Level of Assistance Maximum Assistance,2 Person Assistance Supine to Sit Supine to Sit Assist Maximum Assistance,2 Person Assistance Scooting Scooting to Edge of Bed Maximum Assistance,2 Person Assistance OT-Transfer Assessment Sit to and From Stand Sit to and from Stand Maximum Assistance Transfers Transfer Ability Total Assistance Technique Transfer Destination Bed,Chair Transfer Technique Mechanical Lift Devices Transfer Assistive Devices Gait Belt,Front Wheeled Walker Comments Mobility Comments Sit to stand from bed with 3 person max a. Pt was able to stand but with extreme shaking . Pt returned to sitting and performed another trial. Pt was unable to take steps with second sit to stand but requested to get to the chair. Overhead lift used for transfer to chair. OT- Gait Assessment Comments Gait Ability Comments Pt unable to take steps at this time. OT- Balance Assessment Sitting Balance and Reactions Static Sitting Balance Ability Poor Dynamic Sitting Balance Ability Poor M8 OT- IP Objective Assessments Start: 09/16/20 13:09 Freq: Status: Active Protocol: Document 09/16/20 13:10 CGR (Rec: 09/16/20 13:25 CGR [id number]) OT Gross Range of Motion Upper Extremity Range of Motion Assessment Within Functional Limits OT Strength Upper Extremity Strength Assessment Bilaterally Impaired Hand Hris Developer Strength Hand Dominance Right Comments Strength Comments 3+/5 OT- Coordination Assessment Upper Extremity Finger to Nose Test Bilateral UE Impaired Finger Tapping Test Bilateral UE Impaired OT-Muscle Tone Assessment Muscle Tone WNL Yes OT Sensation Assessment Edema Edema Absent M9 OT- IP Assessment and Plan Start: 09/16/20 13:09 Freq: Status: Active Protocol: Document 09/16/20 13:10 CGR (Rec: 09/16/20 13:25 CGR [id number]) OT Summary Assessment and Plan Potential Rehabilitation Potential Good Analytic Complexity at Evaluation High Summary OT Impairments Pain,Strength,Balance, Coordination,Functional Cognition,Functional Mobility, Self-Feeding,Grooming,Dressing ,Toileting,Bathing,Toilet Transfers,Shower Transfers, Activity Tolerance Progress Towards Goals Slow Progress due to Medical Issues Assessment Summary Pt presents as a high complexity evalution s/p admit with alcoholic pancreatitis and alcoholic hepatitis with cirrhosis. Pt will benefit from continued OT serivces. Recommend co-treatment with P. T. at this time d/t pts ability. Pt is likley to progress with his abilities. d /c recommendations at this time are to SNF but pt is likely to progress to be safe for d/c home. Goals Self-Feeding Goal Independent Grooming Goal Independent Dressing Goal Independent Toileting Goal Independent Bathing Goal Independent Toilet Transfer Goal Independent Shower Transfer Goal Independent Days to Meet Goals 15 Frequency of Treatment Frequency Of Treatment Once a Day Treatment Plan OT Treatment Plan ADL Training,Functional Cognition Training,Functional Mobility,Patient/Family Education,Discharge Planning Other Treatment Recommendations and Next ADLs seated. Treatment Focus Discharge Recommendations OT Discharge Recommendations SNF Rehab Home Equipment Needs TBD Transportation Needs at Discharge Wheelchair/Cabulance
--- NOTE | 2020-09-16 12:05 | CM.DPC ---
DCP continued: EMR review: Cm/Rn met with patient and patients sister at the bedside. patient was agitated and shaky during Cm visit but was alert and oriented x3 at time of visit. patient stated he has been drinking heavily for the last 6 months prior to that he was sober for 18 years. patient use to go to in [facility] but when he moved here he didn't reset up his support system and had a relapse after dealing with a difficult time. Patient is not interested in going to inpatient treatment and only wants to talk about out patient services- CM gave patient and patients sister resources to [facility], [employer] and [employer]. As well as a list of AA meeting available in [facility]. CM/RN spoke with patient about going to SNF rehab for recovery and patient was open to going only to [facility] for [facility]F at D/C. CM called april but [facility] does not take [facility]. CM department will talk with patient again about SNF options when less agitated to verify approval for SNF. most SNFs in this area do not take [facility] so finding a SNF will be challenging. Patient is currently takes a sushil lift or 3 person max assist to transfer due to weakness. Patients CIWA continues to be high. Possible option for palliative care consult depending on provider. CM department will continue to follow and assist with D/C plan. Plan: Home with HH vs SNF that will accept carty. Camila Cotton RN
--- NOTE | 2020-09-16 13:30 | PC.NURSE ---
pt with initial ciwa of 7 this shift- no lorazepam given until this afternoon approx 1230 for increased ciwa score of 10 and obvious tremors- pt becoming adamant about leaving hospital even though he failed during pt/ot eval ( see refer to those notes) repeat score fo 2 post medication - using mechanical lift to move pt from bed to chair and then back to bed- both incontinent and able to use urinal with much assist. Pt is unable to feed self or hold urinal at this time. no use of bipap over this shift and reportedly most of noc shift- ivf continues at 150/h bowel meds given and pt with no bm - took 50% of breakfast and 0% of lunch due to agitation. Pt's sister at bedside and tearful this am
--- NOTE | 2020-09-16 13:46 | DIET.PN ---
Dietary Progress Note Assessment: 54y M admitted for etoh dependence/abuse and etoh acute pancreatitis referred to nutrition for same. Pt admitted after suffering withdrawl related seizure found to have bit tongue. Pt CIWA currently 7-10 requiring sushil or 3p max assist. Pt requiring total assistance c feeding r/t tremors and tracking, consumed 50% breakfast and 0% lunch. Pt reports consuming 1/5th whiskey/d for past 6mo after 18y sober r/t loss of support system with relocation. HT: 154.9cm WT: 107kg BMI: 44.6 Labs: elevated LFTs, lipase on admission 827 H, HDL 37 L, Cr 0.58 L, BUN 7 L MNA: 12 Luis: 19 Nutrition Diagnosis: excessive etoh use r/t undesirable stress coping aeb pt admitted c etoh 433 and acute etoh pancreatitis, pt reports drinking 8 etoh equivalents per day (4x moderate daily intake for male), pt reports relapsing for past 6mo after 18y sober. Interventions: 1. Will wait for sobriety nutrition until pt CIWA is consistently lower. 2. Will order adaptive silverware as modification for pts tremulous hands when attempting to self feed. Diet Order: Mech soft secondary to tongue sore Monitoring/Evaluations: f/u c sobriety nutrition education once CIWA <5
[2020-09-16] MEDS: POTASSIUM CHLORIDE 20 MEQ in SODIUM CHLORIDE 0.45% 1,000 ML 75 MEQ IV (18:22)
--- NOTE | 2020-09-16 19:26 | P.PN_ITS ---
Subjective Subjective Date Patient Seen: 09/16/20 Time Patient Seen: 08:26 Interval history: Patient received 1 dose of morphine last night and required much less lorazepam for control of his acute alcohol withdrawal. He denies any complaints. He has not had a bowel movement. He denies any shortness of breath. He still fair is very shaky. Exam Vital Signs (past 8 hours): - 09/16/20 11:30 09/16/20 11:40 09/16/20 12:00 Pulse Rate 120 H 122 H 123 H Respiratory Rate 25 H 22 24 Blood Pressure 148/94 H Pulse Oximetry 93 09/16/20 12:10 09/16/20 12:20 09/16/20 12:30 Pulse Rate 125 H 124 H 143 H Respiratory Rate 22 40 H 31 H Blood Pressure Pulse Oximetry 09/16/20 12:40 09/16/20 12:44 09/16/20 13:00 Pulse Rate 121 H 112 H 104 H Respiratory Rate 30 H 20 17 Blood Pressure 153/91 H 153/91 H Pulse Oximetry 92 96 09/16/20 13:55 09/16/20 14:00 09/16/20 15:00 Pulse Rate 93 H 94 H 109 H Respiratory Rate 25 H 20 23 Blood Pressure 146/87 H 151/104 H Pulse Oximetry 96 95 95 09/16/20 16:00 09/16/20 16:01 09/16/20 16:10 Pulse Rate 97 H 98 H 95 H Respiratory Rate 22 21 29 H Blood Pressure 138/92 H Pulse Oximetry 92 93 91 09/16/20 16:20 09/16/20 16:21 09/16/20 16:30 Pulse Rate 94 H 93 H 94 H Respiratory Rate 29 H 33 H 31 H Blood Pressure 137/84 Pulse Oximetry 92 93 89 L 09/16/20 16:40 09/16/20 16:50 09/16/20 16:55 Pulse Rate 96 H 100 H 102 H Respiratory Rate 25 H 25 H 35 H Blood Pressure Pulse Oximetry 91 94 95 09/16/20 17:00 09/16/20 17:01 09/16/20 17:10 Pulse Rate 117 H 120 H 120 H Respiratory Rate 26 H Blood Pressure 147/110 H Pulse Oximetry 94 91 95 09/16/20 17:20 09/16/20 17:35 09/16/20 18:00 Pulse Rate 96 H 93 H 97 H Respiratory Rate 23 18 19 Blood Pressure 98/65 Pulse Oximetry 09/16/20 18:10 09/16/20 18:20 09/16/20 18:30 Pulse Rate 98 H 95 H 95 H Respiratory Rate 22 21 22 Blood Pressure Pulse Oximetry Fraction of Inspired Oxygen 30 Oxygen Delivery Method Nasal Cannula Oxygen Flow Rate 2 Narrative Exam Narrative: Afebrile vital signs are stable. He has not had further fever had 1 and was started on Levaquin and no further. He is somnolent awakened and answers questions Neck: Supple without adenopathy Chest: Clear to auscultation with prolonged expiratory phase Cor: Regular rate and rhythm without murmur Abdomen: Positive bowel sounds, soft, no tenderness, no guarding Extremities: No edema pulses intact Objective Labs Result Diagrams: 09/16/20 04:52 09/16/20 04:52 Labs: Laboratory Results - last 24 hr 09/16/20 09/16/20 09/16/20 04:52 04:52 04:52 WBC 2.5 L RBC 3.48 L Hgb 12.5 L Hct 36.3 L MCV 104.3 H MCH 35.9 H MCHC 34.4 RDW 13.2 Plt Count 17 L* Neut % (Auto) 62.7 Lymph % (Auto) 23.0 L [place] % (Auto) 11.5 Eos % (Auto) 2.0 Baso % (Auto) 0.8 Neut # (Auto) 1600 Lymph # (Auto) 600 L [place] # (Auto) 300 Eos # (Auto) 0 Baso # (Auto) 0 Platelet Estimate Decreased on smear RBC Morphology Normal morphology PT 18.0 H INR 1.6 H Sodium 130 L Potassium 3.4 Chloride 98 Carbon Dioxide 27 BUN 7 L Creatinine 0.43 L Estimated GFR > 60.0 BUN/Creatinine Ratio 16.3 Glucose 93 Calcium 8.3 L Phosphorus 2.8 Magnesium 1.5 L Total Bilirubin 3.3 H Conjugated Bilirubin 0.3 Unconjugated Bilirubin 1.8 H AST 130 H ALT 63 H Alkaline Phosphatase 113 Total Protein 7.0 Albumin 3.3 L Globulin 3.7 Albumin/Globulin Ratio 0.9 L Amylase Lipase 361 H 09/16/20 09/16/20 04:52 04:52 WBC RBC Hgb Hct MCV MCH MCHC RDW Plt Count Neut % (Auto) Lymph % (Auto) [place] % (Auto) Eos % (Auto) Baso % (Auto) Neut # (Auto) Lymph # (Auto) [place] # (Auto) Eos # (Auto) Baso # (Auto) Platelet Estimate RBC Morphology PT INR Sodium 131 L Potassium 3.4 Chloride 97 L Carbon Dioxide 27 BUN 7 L Creatinine 0.44 L Estimated GFR > 60.0 BUN/Creatinine Ratio 15.9 Glucose 93 Calcium 8.4 Phosphorus Magnesium Total Bilirubin 3.3 H Conjugated Bilirubin Unconjugated Bilirubin AST 132 H ALT 63 H Alkaline Phosphatase 115 Total Protein 7.0 Albumin 3.4 L Globulin 3.6 Albumin/Globulin Ratio 0.9 L Amylase 113 H Lipase Assessment & Plan Assessment & Plan narrative: 54-year-old male admitted for alcohol abuse with acute withdrawal and delirium tremens Plan: He appears to be slowly improving and requiring less lorazepam. We will provide Vicodin to help with back pain and discomfort. We will not switch to Librium. The patient states that he does want to quit drinking alcohol but he does not want to go to inpatient rehab. He also is asking yesterday and asking his sister's to take him home. He states that he will not drink but does not have good insight that he will continue withdraw. They have requested a palliative care consult and we will proceed with this. In the meantime will continue with supportive care. Acute pancreatitis secondary to alcohol abuse improving numbers and no pain or symptoms despite eating solids Plan: Will continue to monitor Assessment 3. Infectious disease. Patient had 1 episode of febrile illness was placed on Levaquin and no further symptoms and no localizing finding Plan: Will continue a complete 7 day course. Assessment 4. Profound severe thrombocytopenia, acute on chronic suspect related to alcohol abuse. No evidence of bleeding Plan: Will continue to monitor closely Assessment 5. Anxiety and depression Plan: Continue on citalopram Assessment 6. DVT prophylaxis. Patient will not tolerate SCDs and anticoagulation or Lovenox contraindicated due to throat severe thrombocytopenia Assessment 7. History of esophageal varices with no current symptoms Plan: Continue to monitor closely. Continue on PPI Assessment 8. Hepatitis-C untreated due to alcohol abuse
[2020-09-16] MEDS: ACETAMINOPHEN 325 MG TABLET 650 MG PO (22:44)
[2020-09-16] MEDS: levoFLOXacin 750 MG/150 ML PIGGYBACK 100 MG IV (22:44)
[2020-09-17] VITALS (61 sets, daily range): BP systolic 105–163; BP diastolic 63–109; PULSE 74–106; RESP 15–30; TEMP 35.9–37.5; O2SAT 89–99
[2020-09-17] MEDS: LORazepam 2 MG/ML INJ IV ×3 (00:28→18:38)
--- NOTE | 2020-09-17 05:26 | PC.NURSE ---
Pt with initial CIWA of 8 - medicated per protocol with improvement. Tolerating oxygen 2LNC for Sp02 >93%. Noted to have progressive apneic episodes throughout the shift as well as increased irregularity in his respiratory pattern and associated abdominal breathing causing concern. RT consulted for eval and it was agreed to place patient back on bipap. Currently tolerating well 16/6, rate 16, Fi02 30%.
[2020-09-17 05:54] LABS: INR 1.6 (0.9-1.3)
[2020-09-17 05:59] LABS: Add Manual Diff / Slide Review NO; Alanine Aminotransferase 54 IU/L (<50); Albumin 3.4 g/dL (3.5-5.0); Albumin Globulin Ratio 0.9 (1.0-2.8); Alkaline Phosphatase 117 U/L (38-126); Aspartate Aminotransferase 94 IU/L (17-59); BUN Creatinine Ratio 24.4 (6-22); Basophils Absolute Auto 0 /uL (0-100); Basophils Percent Auto 0.4 % (0-2); Bilirubin Total 3.9 mg/dL (0.2-1.3); Blood Urea Nitrogen 11 mg/dL (9-20); Calcium 8.5 mg/dL (8.4-10.2); Carbon Dioxide 26 mmol/L (22-32); Chloride 96 mmol/L (98-107); Eosinophils Absolute Auto 0 /uL (0-450); Eosinophils Percent Auto 0.7 % (2-4); Estimated Glomerular Filt Rate > 60.0 mL/min (>60); Globulin 3.9 g/dL (1.7-4.1); Glucose 93 mg/dL (70-100); HEMOLYSIS < 15 (0-50); Hematocrit 37.8 % (41-53); Hemoglobin 13.3 g/dL (13.5-17.5); Lymphocytes Absolute Auto 600 /uL (1100-4500); Lymphocytes Percent Auto 14.6 % (25-40); Mean Corpuscular HGB Conc 35.2 % (30-36); Mean Corpuscular Volume 105.1 fL (80-100); Monocytes Absolute Auto 500 /uL (0-900); Monocytes Percent Auto 13.7 % (3-14); Neutrophils Absolute Auto 2700 /uL (1500-7000); Neutrophils Percent Auto 70.6 % (50-75); Platelet Count 37 X10^3/uL (150-400); Potassium 3.9 mmol/L (3.4-5.1); Red Blood Cell Count 3.59 X10^6/uL (4.5-5.9); Red Cell Distribution Width 13.4 % (11.6-14.8); Sodium 128 mmol/L (137-145); Total Protein 7.3 g/dL (6.3-8.2); White Blood Cell Count 3.8 X10^3/uL (4.5-11.0)
[2020-09-17 07:00] LABS: Macrocytosis 3+
[2020-09-17 07:26] LABS: Alanine Aminotransferase 54 IU/L (<50); Albumin 3.2 g/dL (3.5-5.0); Albumin Globulin Ratio 0.8 (1.0-2.8); Alkaline Phosphatase 118 U/L (38-126); Aspartate Aminotransferase 94 IU/L (17-59); BUN Creatinine Ratio 24.4 (6-22); Bilirubin Conjugated 0.9 md/dL (0.0-0.3); Bilirubin Unconjugated 1.8 mg/dL (0.0-1.1); Blood Urea Nitrogen 11 mg/dL (9-20); Calcium 8.5 mg/dL (8.4-10.2); Carbon Dioxide 24 mmol/L (22-32); Chloride 96 mmol/L (98-107); Estimated Glomerular Filt Rate > 60.0 mL/min (>60); Globulin 3.8 g/dL (1.7-4.1); Glucose 90 mg/dL (70-100); HEMOLYSIS < 15 (0-50); Lipase 304 U/L (23-300); Magnesium 1.7 mg/dL (1.6-2.3); Phosphorous 3.7 mg/dL (2.5-4.5); Sodium 128 mmol/L (137-145)
[2020-09-17] MEDS: POTASSIUM CHLORIDE 20 MEQ in SODIUM CHLORIDE 0.45% 1,000 ML 75 MEQ IV (07:51)
--- NOTE | 2020-09-17 09:56 | PT-IP ANOTE ---
Pt on hold this am per nursing due to currrently on BIPAP, did not sleep well over night, not as alert this morning and requesting rest/ recovery this am. Encouraged to see patient in PM for PT tx. Therapy will return in the afternoon for treatment.
--- NOTE | 2020-09-17 10:15 | OT.IPNOTE ---
Per nursing HOLD from therapy this AM due to pt on BIPAP, to check on the pt on the afternoon.
[2020-09-17] MEDS: HYDROCODONE/ACET 5/325 TABLET 1 TAB PO ×3 (12:08→20:57)
[2020-09-17] MEDS: polyethylene glycoL 3350 17 GM POWD.PACK PO (12:08)
[2020-09-17] MEDS: NICOTINE 14 PATCH 14 MG TOP (12:08)
[2020-09-17] MEDS: FOLIC ACID 1 MG TABLET PO (12:09)
[2020-09-17] MEDS: CITALOPRAM 10 MG TABLET PO (12:09)
[2020-09-17] MEDS: DOCUSATE 100 MG CAPSULE PO (12:09)
[2020-09-17] MEDS: MULTIVITAMIN 1 TABLET 1 TAB PO (12:09)
[2020-09-17] MEDS: PANTOPRAZOLE 40 MG VIAL IV ×2 (12:10→20:57)
--- NOTE | 2020-09-17 12:53 | OT.IP.TRT ---
Current Diagnoses Alcohol dependence with withdrawal, unspecified (09/13/20) Alcohol induced acute pancreatitis without necrosis or infection (09/13/20) Occupational Therapy Treatment Note M2 OT-IP Current Condition Start: 09/16/20 13:09 Freq: Status: Active Protocol: Document 09/16/20 13:10 CGR (Rec: 09/16/20 13:25 CGR [id number]) Occupational Therapy Current Condition Current Condition Evaluation Date 09/16/20 Treatment Diagnosis Alcoholic pancreatitis, hepatitis with cirrhosis. Diagnosis Onset Date 09/13/20 M3 OT- IP Subjective and Pain Start: 09/16/20 13:09 Freq: Status: Active Protocol: Document 09/17/20 12:57 CCC (Rec: 09/17/20 13:05 [facility] [email or web address]) OT- Subjective Occupational Therapy Visit Type Type Treatment Note Visit Start Time 12:28 Visit Stop Time 12:53 Total Visit Minutes 25 Occupational Therapy Visit Comments Patient Comments Pt agreed to try to get up. AIRCRAFT SERVICER and nursing TANBARK PEELER also present as pt needing extensive assist for mobility needs. OT Pain Assessment Pain When Pain Assessed At Rest Pain Present Pain Present Denied Pain M4 OT- IP ADL's Start: 09/16/20 13:09 Freq: Status: Active Protocol: Document 09/17/20 12:57 CCC (Rec: 09/17/20 13:05 [facility] [email or web address]) OT [id number] Comments OT Self-Feeding Comments Pt states not wanting to eat lunch at this time. OT ADL-Dressing General Eval Lower Body Dressing Ability Total Assistance Areas Needing Assistance Socks M5 OT- IP IADL's Start: 09/16/20 13:09 Freq: Status: Active Protocol: Document 09/16/20 13:10 CGR (Rec: 09/16/20 13:25 CGR [id number]) OT-Instrumental Activities of Daily Living Deficits IADL Deficits Identified Deficits Home Safety Awareness Awareness of Need for Assistance at Home Decreased Awareness Ability to Problem Solve Emergency Unable to Problem Solve Situations M6 OT- IP Functional Cognition Start: 09/16/20 13:09 Freq: Status: Active Protocol: Document 09/17/20 12:57 CCC (Rec: 09/17/20 13:05 [facility] [id number]) Cognitive Factors Limiting Selfcare Function Cognitive Ability Level of Alertness Alert Patient Orientation Name,Month,Date,Year,Place, Situation Attention Span Ability Capable of Focused Attention, Unable to Sustain Attention Ability to Follow Commands Able to Follow One Step Commands with Increased Time, Able to Follow One Step Commands with Repetition Cognitive Comments Cognitive Assessment Comments Pt able to follow simple step commands. M7 OT- IP Mobility and Balance Start: 09/16/20 13:09 Freq: Status: Active Protocol: Document 09/17/20 12:57 [facility] (Rec: 09/17/20 13:05 [facility] [id number]) OT- Bed Mobility Assessment Rolling Type of Rolling Roll to Right Level of Assistance Maximum Assistance,1 Person Assistance,Bedrails Supine to Sit Supine to Sit Assist Maximum Assistance,1 Person Assistance,Bedrails Sit to Supine Sit to Supine Assist Maximum Assistance,2 Person Assistance Scooting Scooting to Edge of Bed Maximum Assistance,2 Person Assistance OT-Transfer Assessment Sit to and From Stand Sit to and from Stand Maximum Assistance,2 Person Assistance Comments Mobility Comments Pt able to stand after MAX X 2 with FWW for 5 minutes and also able to urinate with TANBARK PEELER assist to hold urinal in place while therapist assist to hold pt upright with FWW MAX A X2. OT- Balance Assessment Sitting Balance and Reactions Static Sitting Balance Ability Poor Dynamic Sitting Balance Ability Poor Standing Balance and Reactions Static Standing Balance Ability Poor Comments Other Balance Tests/Deviations/Treatment Pt tends to lean into : posterior tilt and to the right while sitting. M8 OT- IP Objective Assessments Start: 09/16/20 13:09 Freq: Status: Active Protocol: Document 09/16/20 13:10 CGR (Rec: 09/16/20 13:25 CGR [id number]) OT Gross Range of Motion Upper Extremity Range of Motion Assessment Within Functional Limits OT Strength Upper Extremity Strength Assessment Bilaterally Impaired Hand Hot Dipper Strength Hand Dominance Right Comments Strength Comments 3+/5 OT- Coordination Assessment Upper Extremity Finger to Nose Test Bilateral UE Impaired Finger Tapping Test Bilateral UE Impaired OT-Muscle Tone Assessment Muscle Tone WNL Yes OT Sensation Assessment Edema Edema Absent M9 OT- IP Assessment and Plan Start: 09/16/20 13:09 Freq: Status: Active Protocol: Document 09/17/20 12:57 [facility] (Rec: 09/17/20 13:05 [facility] [email or web address]) OT Summary Assessment and Plan Potential Rehabilitation Potential Good Analytic Complexity at Evaluation High Summary OT Impairments Pain,Strength,Balance, Coordination,Functional Cognition,Functional Mobility, Self-Feeding,Grooming,Dressing ,Toileting,Bathing,Toilet Transfers,Shower Transfers, Activity Tolerance Progress Towards Goals Slow Progress due to Medical Issues,Slow Progress due to Cognition Assessment Summary Pt today able to stand for 5 minutes with MAX AX2 with FWW. Pt able to follow one step commands and states his needs at this time. Pt still needing extensive assist 2-3 persons for mobility needs and would benefit from skilled rehab prior to going home. Goals Self-Feeding Goal Independent Grooming Goal Independent Dressing Goal Independent Toileting Goal Independent Bathing Goal Independent Toilet Transfer Goal Independent Shower Transfer Goal Independent Days to Meet Goals 14 Frequency of Treatment Frequency Of Treatment Once a Day Treatment Plan OT Treatment Plan ADL Training,Functional Cognition Training,Functional Mobility,Patient/Family Education,Discharge Planning Other Treatment Recommendations and Next ADLs seated. Treatment Focus Discharge Recommendations OT Discharge Recommendations SNF Rehab Home Equipment Needs TBD Transportation Needs at Discharge Wheelchair/Cabulance
--- NOTE | 2020-09-17 12:53 | PT.IPTN ---
Current Diagnoses Alcohol dependence with withdrawal, unspecified (09/13/20) Alcohol induced acute pancreatitis without necrosis or infection (09/13/20) Physical Therapy Treatment Note M2 PT-IP Current Condition Start: 09/16/20 13:33 Freq: NEEDED Status: Active Protocol: Document 09/16/20 10:47 AB (Rec: 09/16/20 13:43 AB [id number]) Physical Therapy Current Condition Current Condition Evaluation Date 09/16/20 Treatment Diagnosis alcoholic pancreatitis; alcoholic withdrawal; difficulty in walking Onset Date 09/13/20 Precautions Other Precautions falls M3 PT-IP Subjective Start: 09/16/20 13:33 Freq: NEEDED Status: Active Protocol: Document 09/17/20 12:25 SP (Rec: 09/17/20 14:02 SP [email or web address]) Subjective Physical Therapy Visit Type Type Treatment Note Visit Start Time 12:25 Visit Stop Time 12:53 Total Visit Minutes 28 Notes Co Tx with OT, HEALTHCARE ASSOCIATE present and provided cuing and assist with mobility as needed for safety. Number of PAINT STOCK CLERK Visits 1 Physical Therapy Visit Comments Patient Comments Pt agreeable to working with therapy. M4 PT-IP Mobility and Gait Start: 09/16/20 13:33 Freq: NEEDED Status: Active Protocol: Document 09/17/20 12:25 SP (Rec: 09/17/20 14:02 SP [email or web address]) PT-Bed Mobility Assessment Supine to Sit Supine to Sit Maximum Assistance,1 Person Assistance,Bedrails Scooting Scooting to Edge of Bed Moderate Assistance Scooting Up and Down in Bed Contact Guard Assistance PT-Transfer Assessment Sit to and From Stand Sit to and from Stand Maximum Assistance,2 Person Assistance,Use of Upper Extremities Equipment Transfer Assistive Device Gait Belt,Front Wheeled Walker Orthotic/Prosthetic Devices or Brace: No Transfers Transfer Destination Bed Transfer Technique Lateral Scoot Transfer Ability Level of Assist Maximum Assistance,2 Person Assistance,Use of Upper Extremities Comments Mobility Comments Pt was inclined in bed when arrived. Supine BP approx 150/ 92 pre activity, post standing 161/102 with HR 113 bpm. Log roll to L using bed rails CGA, L sidelying>sitting Max A of 1 with cuing for LE repositioning himself to EOB, self support to push from bed LUE and RUE pull from therapist hand with Max A of 1 for trunk righting to sitting , scoot to EOB Mod A of 1 with Max cuing for forward trunk flexion to decrease heavy retro lean Mod A x1-2 persons required for support. Pt required CG- Mod A for sitting balance at EOB with BUE on bed self assist, max cuing. Sit<> stand Max A of 2 persons and maintain upright positioning using fWW, min cuing knee extension with quad tapping facilitation fairly stable and Max cuing for forward COG over DISHA to decreased heavy retro lean and BUE WB on FWW- stood approx 5 min via OT/PAINT STOCK CLERK assist, HEALTHCARE ASSOCIATE assisted patient with urinal use, large deposit. Max A of 2 for slow descent to sit EOB, BLE unsteady weakness. Attempted to stand after 5 min rest break at EOB but unableto come to full standing . Lateral scoot up EOB Max A of 2 persons with cuing for BUE and trunk wt shift forward . Sitting>supine Max A of 2 persons for trunk and LE assist and reposition upper body in bed to center. Pt was inclined to comfort, call light and all needs in reach, bed alarmed before left. Gait Assessment Comments Gait Comments Pt unable to take steps at this time. PT-Balance Assessment Sitting Balance and Reactions Static Sitting Balance Ability Poor Dynamic Sitting Balance Ability Poor Standing Balance and Reactions Static Standing Balance Ability Poor Dynamic Standing Balance Ability Poor Device Used FWW M5 PT-IP Objective Assessments Start: 09/16/20 13:33 Freq: NEEDED Status: Active Protocol: Document 09/16/20 10:47 AB (Rec: 09/16/20 13:43 AB [id number]) Orientation Orientation/Cognition Level of Alertness Alert Orientation Name,Month,Year,Place, Situation Safety Awareness Decreased Safety Awareness Comments initially was sleepy but became awake upon sitting Gross Range of Motion Lower Extremity ROM Assessment Within Functional Limits Strength Lower Extremity Strength Assessment Right Impaired Knee 3+/5 Muscle Tone Comments Muscle Tone Comments tremors whole body during standing M6 PT-IP Treatment Start: 09/16/20 13:33 Freq: NEEDED Status: Active Protocol: Document 09/17/20 12:25 SP (Rec: 09/17/20 14:02 SP [email or web address]) Physical Therapy Treatment Education Education Provided Safety M7 PT-IP Assessment and Plan Start: 09/16/20 13:33 Freq: NEEDED Status: Active Protocol: Document 09/17/20 12:25 SP (Rec: 09/17/20 14:02 SP [email or web address]) PT Summary Assessment and Plan Potential Rehabilitation Potential Fair Status of Condition at Evaluation Evolving Summary Impairments Pain,ROM,Strength,Balance, Coordination,Sensation,Tone, Cognition,Bed Mobility, Transfers,Gait,Activity Tolerance Assessment Summary pt requiring max A x 2-3 for mobility and is requiring total A for transfers recommending mechancial lift at this time if needed, unable to ambulate. pt will require SNF rehab to improve strength and mobility. Goals Bed Mobility Goal Minimal Assistance Transfer Goal Minimal Assistance,Front Wheeled Walker Gait Goal Minimal Assistance,Front Wheel Walker Gait Distance 75 Days to Meet Goals 10 Frequency of Treatment Frequency Of Treatment Once a Day Treatment Plan Physical Therapy Treatment Plan Bed Mobility Training,Transfer Training,Gait Training, Therapeutic Exercise,Balance Retraining,Discharge Planning, Hot or Cold Pack,Neuromuscular Re-ed,Coordination Retraining Recommendations To Nursing Amount of Assist Needed 2 Person Assist Discharge Recommendations PT Discharge Recommendations SNF Rehab Transportation Needs at Discharge Wheelchair/Cabulance
--- NOTE | 2020-09-17 13:08 | DI.RAD.S_ITS ---
PROCEDURE: XR KNEE RT 1TO2V INDICATIONS: pain and swelling TECHNIQUE: 2 views of the knee were acquired. COMPARISON: [facility], CR, XR KNEE RT 3V, 07/24/2019, 8:50. FINDINGS: Bones: No acute fractures or dislocations. No suspicious bony lesions. Mild narrowing of the medial femorotibial joint space is seen. There is marginal osteophyte formation and mild chondrocalcinosis. Mild degenerative changes are also noted in the anterior compartment. Soft tissues: A large joint effusion is present without a fat fluid level. IMPRESSION: 1. No acute osseous abnormality is identified. 2. 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 3. Large nonspecific joint effusion. 4. If symptoms persist, CT or MRI may be obtained for further evaluation. Dictated by: Jevon Cifuentes M.D. on 09/17/2020 at 13:30 Approved by: Jevon Cifuentes M.D. on 09/17/2020 at 13:33
--- NOTE | 2020-09-17 13:11 | PM.PN.1 ---
Subjective Subjective Date Patient Seen: 09/17/20 Time Patient Seen: 13:11 Interval history: The patient is awake and alert and answering questions this morning. He is not received any lorazepam on day shift. He was just up to urinate urinated 500 cc. He has not had a bowel movement. He is not taking in a lot by mouth in terms of solids. His IV fluids were turned down to 75 cc an hour about 12 hours ago. He is having right knee pain. He was given Vicodin for this which has been beneficial. He otherwise denies pain. He is still stating that he prefers outpatient treatment versus inpatient treatment. Not requesting to go home. Previously he was. Review of systems: Negative for any difficulty breathing Negative for any chest pain Negative for headaches Exam Vital Signs (past 8 hours): - 09/17/20 06:00 09/17/20 06:23 09/17/20 07:00 Temperature 99.5 F Pulse Rate 93 H 92 H Respiratory Rate 23 18 Blood Pressure 140/90 153/89 H Pulse Oximetry 97 93 95 09/17/20 07:29 09/17/20 08:00 09/17/20 08:45 Temperature 98.6 F Pulse Rate 95 H 91 H Respiratory Rate 24 18 Blood Pressure 153/89 H 142/90 H 143/90 H Pulse Oximetry 98 09/17/20 09:00 09/17/20 09:10 09/17/20 09:20 Temperature Pulse Rate 88 87 87 Respiratory Rate 18 22 18 Blood Pressure 128/81 Pulse Oximetry 95 98 99 09/17/20 09:30 09/17/20 09:40 09/17/20 09:55 Temperature Pulse Rate 85 95 H 85 Respiratory Rate 18 22 20 Blood Pressure Pulse Oximetry 96 98 99 09/17/20 10:00 09/17/20 10:01 09/17/20 10:37 Temperature Pulse Rate 83 82 Respiratory Rate 19 19 Blood Pressure 140/87 140/87 Pulse Oximetry 96 96 09/17/20 10:50 09/17/20 11:00 09/17/20 11:55 Temperature Pulse Rate 84 86 97 H Respiratory Rate 18 19 23 Blood Pressure 124/77 Pulse Oximetry 95 94 91 09/17/20 12:00 09/17/20 12:01 09/17/20 12:10 Temperature 98.4 F Pulse Rate 94 H 96 H 103 H Respiratory Rate 26 H 26 H 26 H Blood Pressure 158/106 H Pulse Oximetry 93 91 90 L 09/17/20 12:38 09/17/20 13:05 Temperature Pulse Rate 106 H Respiratory Rate 21 Blood Pressure 125/92 H Pulse Oximetry 92 Fraction of Inspired Oxygen 0.35 Oxygen Delivery Method Room Air Oxygen Flow Rate 0 Narrative Exam Narrative: Afebrile. Temperature of a 100? yesterday. Blood pressure tends to remain elevated despite no other symptoms of withdrawal. Blood pressure is 150s over 90s repeatedly. Diastolic blood pressure remaining in the 90s. HEENT: Unremarkable Neck: Supple Chest: Coarse upper airway sounds transmitted to right chest but no wheezes rhonchi or crackles Cor: Regular rate and rhythm at a rate in the 90s with distant S1-S2 Abdomen: Positive bowel sounds, soft, nontender, obese no obvious ascites, mild hepatomegaly Extremities: Bruising distal lateral thigh on the right. There is a large effusion on the right knee both in the joint and prepatellar. He is able to fully extend but has difficulty flexing due to pain. Medial and lateral collateral ligaments intact. Difficulty checking Jayson and anterior posterior drawer test due to pain. No lower extremity edema. Pulses are intact. No other evidence of trauma. Objective Labs Result Diagrams: 09/17/20 05:18 09/17/20 05:18 Labs: Laboratory Results - last 24 hr 09/17/20 09/17/20 09/17/20 05:18 05:18 05:18 WBC 3.8 L D RBC 3.59 L Hgb 13.3 L Hct 37.8 L MCV 105.1 H MCH 37.0 H MCHC 35.2 RDW 13.4 Plt Count 37 L Neut % (Auto) 70.6 Lymph % (Auto) 14.6 L [place] % (Auto) 13.7 Eos % (Auto) 0.7 L Baso % (Auto) 0.4 Neut # (Auto) 2700 Lymph # (Auto) 600 L [place] # (Auto) 500 Eos # (Auto) 0 Baso # (Auto) 0 RBC Morphology Not Reportable Macrocytosis 3+ H PT 18.0 H INR 1.6 H Sodium 128 L Potassium 4.0 Chloride 96 L Carbon Dioxide 24 BUN 11 Creatinine 0.45 L Estimated GFR > 60.0 BUN/Creatinine Ratio 24.4 H Glucose 90 Calcium 8.5 Phosphorus 3.7 Magnesium 1.7 Total Bilirubin 4.0 H Conjugated Bilirubin 0.9 H Unconjugated Bilirubin 1.8 H AST 94 H ALT 54 H Alkaline Phosphatase 118 Total Protein 7.0 Albumin 3.2 L Globulin 3.8 Albumin/Globulin Ratio 0.8 L Lipase 304 H 09/17/20 05:18 WBC RBC Hgb Hct MCV MCH MCHC RDW Plt Count Neut % (Auto) Lymph % (Auto) [place] % (Auto) Eos % (Auto) Baso % (Auto) Neut # (Auto) Lymph # (Auto) [place] # (Auto) Eos # (Auto) Baso # (Auto) RBC Morphology Macrocytosis PT INR Sodium 128 L Potassium 3.9 Chloride 96 L Carbon Dioxide 26 BUN 11 Creatinine 0.45 L Estimated GFR > 60.0 BUN/Creatinine Ratio 24.4 H Glucose 93 Calcium 8.5 Phosphorus Magnesium Total Bilirubin 3.9 H Conjugated Bilirubin Unconjugated Bilirubin AST 94 H ALT 54 H Alkaline Phosphatase 117 Total Protein 7.3 Albumin 3.4 L Globulin 3.9 Albumin/Globulin Ratio 0.9 L Lipase Assessment & Plan Assessment & Plan narrative: 54-year-old male with known history of severe alcoholism admitted for acute alcohol withdrawal with delirium tremens improving now on hospital day number 5. His requirements for lorazepam is decreasing and he is becoming more alert. Still showing little insight with request for outpatient drug and alcohol treatment. Awaiting paliative care consultation requested by family and patient. Plan: Continue with supportive care and CIWA protocol. Patient is not medically stable at this time to be transferred to inpatient rehab but is starting to show some improvement today. Assessment 2. Severe thrombocytopenia without acute bleeding and improvement on today's labs Plan: Patient is status post vitamin K injection x3. He is not having any bleeding. His platelets have improved. It is suspected that the etiology of this is bone marrow suppression secondary to alcohol abuse. Assessment 3. Known esophageal varices without current bleeding Plan: Continue to monitor closely. Patient and family understand that this would be disastrous if he did start bleeding. Assessment 4. Hypokalemia improved Plan: Will continue to monitor. Continue with potassium and IV fluids Assessment 5. Hypophosphatemia improved Plan: Will continue to monitor Assessment 6. Hypomagnesemia improved Plan: Will continue to monitor Assessment 7. GI prophylaxis Plan: Continue on PPI at high dose given thrombocytopenia esophageal varices Assessment 8. DVT prophylaxis Plan: Patient refuses SCDs. Lovenox is contraindicated due to severe thrombocytopenia Assessment number 9. Right knee pain with large joint effusion concern for trauma Plan: Will do x-ray to rule out fracture which I think is low likelihood. We will use ice. Will continue with pain management. Continue with physical therapy. Assessment 10. Probable sleep apnea undiagnosed but on BiPAP when sleeping Plan: Continue the same and will plan to do sleep study as outpatient pending patient's compliance Assessment 11. Infectious Disease: Patient on empiric treatment with Levaquin. We will complete a 7 day course and then discontinue. Assessment 12. History of depression currently on citalopram Plan: Continue the same. Unable to determine at this time. Assessment 13. Acute pancreatitis secondary to alcohol abuse improving Plan: Continue to monitor. Continue to abstain from alcohol. Assessment 14. Hepatitis C currently untreated due to alcohol abuse Assessment 15. Hepatic dysfunction secondary to alcohol abuse and hepatitis-C infection with worsening labs but no acute symptoms Plan: Will continue to monitor Assessment 16. History of tobacco abuse without current lung problems Plan: Will continue to monitor
[2020-09-17] MEDS: THIAMINE 100 MG TABLET PO (13:49)
[2020-09-17] MEDS: METOPROLOL IR 25 MG TABLET PO ×2 (13:49→20:57)
--- NOTE | 2020-09-17 14:07 | CM.DPNOTE ---
DCP Cont Spoke w/sister Connie this morning; Palliative Care consult arranged for 0 and both of patient's sisters plan to attend. Larissa saddened by patient's current status and prognosis as he had many years of sobriety before his relapse around the last of 2018. Patient had been through detox and treatment in [place] in November 2019, but patient had began to drink again shortly after his release from treatment. According to Larissa triggers for continued drinking likely include the loss of their mother, isolation d/t COVID-19 pandemic, loss of work, strained relationships w/adult children and symptoms of depression . Larissa hopeful a SNF can be secured for patient as patient lives alone and family has to work. Attempted [facility] today, faxed referral, patient declined at this time. Following closely, patient will need coordination of safest DCP available to him, home w/ HH vs Hospice service (?) will need to discuss w/patient and family over the next 24 hrs- POC/DCP JW
--- NOTE | 2020-09-17 14:16 | PC.NURSE ---
MUCH IMPROVEMENT THIS AFTERNOON COMPARED TO AM- PT REMAINED ON BIPAP UNTIL NOON WITH [facility] EVEN ON THAT- ALLOWED PT TO REST DURING THIS TIME-AT APPROX NOON HE AWAKENED AND WAS MOSTLY ORIENTED AND WAS MINIMALLY CONVERSANT- REMOVED BIPAP AND BATHED PT- HE WAS ABLE TO TAKE FEW BITES OF HIS LUNCH WITHOUT BEING FED BY STAFF- WAS ASSESSED BY DR TRAMMELL WITH NEW ORDERS RECEIVED AND THEN WORKED WITH PT/OT - MUCH LESS TREMULOUS COMPARED TO YESTERDAY- IVF CHANGED DUE TO ELECTROLYTE IMBALANCE
--- NOTE | 2020-09-17 15:33 | PC.NURSE ---
1516 During report it was noted that the pt had 7 beats of V-tach, at heart rate of 100. Pt asymptomatic, left a message for Dr. Keith. Awaiting new orders.
[2020-09-17] MEDS: KCL 20 MEQ IN NS 1,000 ML 75 MEQ IV (16:15)
[2020-09-17] MEDS: MAGNESIUM CHLORIDE 64 MG TABLET PO (16:16)
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
[2020-09-17] MEDS: MORPHINE 2 MG/ML INJ IV (18:53)
[2020-09-17] MEDS: levoFLOXacin 750 MG/150 ML PIGGYBACK 100 MG IV (22:01)
[2020-09-18] VITALS (17 sets, daily range): BP systolic 121–156; BP diastolic 75–100; PULSE 71–83; RESP 16–24; TEMP 35.8–37.3; O2SAT 90–96
[2020-09-18] MEDS: KCL 20 MEQ IN NS 1,000 ML 75 MEQ IV ×2 (05:20→14:20)
[2020-09-18 05:23] LABS: INR 1.5 (0.9-1.3); Prothrombin Time 17.8 SECONDS (10.1-12.7)
[2020-09-18 05:24] LABS: Add Manual Diff / Slide Review NO; Basophils Absolute Auto 0 /uL (0-100); Basophils Percent Auto 0.5 % (0-2); Eosinophils Absolute Auto 100 /uL (0-450); Eosinophils Percent Auto 1.3 % (2-4); Hematocrit 37.6 % (41-53); Hemoglobin 13.1 g/dL (13.5-17.5); Lymphocytes Absolute Auto 700 /uL (1100-4500); Mean Corpuscular HGB Conc 34.8 % (30-36); Mean Corpuscular Hemoglobin 36.4 PG (26-34); Mean Corpuscular Volume 104.8 fL (80-100); Monocytes Absolute Auto 800 /uL (0-900); Monocytes Percent Auto 18.3 % (3-14); Neutrophils Absolute Auto 2600 /uL (1500-7000); Neutrophils Percent Auto 63.9 % (50-75); Platelet Count 58 X10^3/uL (150-400); Red Blood Cell Count 3.59 X10^6/uL (4.5-5.9); Red Cell Distribution Width 13.4 % (11.6-14.8); White Blood Cell Count 4.1 X10^3/uL (4.5-11.0)
[2020-09-18 05:30] LABS: Alanine Aminotransferase 45 IU/L (<50); Albumin 3.1 g/dL (3.5-5.0); Albumin Globulin Ratio 0.8 (1.0-2.8); Alkaline Phosphatase 109 U/L (38-126); Aspartate Aminotransferase 77 IU/L (17-59); BUN Creatinine Ratio 24.4 (6-22); Bilirubin Conjugated 0.3 md/dL (0.0-0.3); Bilirubin Total 3.3 mg/dL (0.2-1.3); Bilirubin Unconjugated 1.8 mg/dL (0.0-1.1); Blood Urea Nitrogen 11 mg/dL (9-20); Calcium 8.5 mg/dL (8.4-10.2); Carbon Dioxide 27 mmol/L (22-32); Chloride 96 mmol/L (98-107); Estimated Glomerular Filt Rate > 60.0 mL/min (>60); Globulin 3.8 g/dL (1.7-4.1); Glucose 99 mg/dL (70-100); HEMOLYSIS < 15 (0-50); Lipase 237 U/L (23-300); Magnesium 1.6 mg/dL (1.6-2.3); Phosphorous 2.9 mg/dL (2.5-4.5); Potassium 4.1 mmol/L (3.4-5.1); Sodium 126 mmol/L (137-145); Total Protein 6.9 g/dL (6.3-8.2)
[2020-09-18 05:31] LABS: Alanine Aminotransferase 45 IU/L (<50); Albumin 3.1 g/dL (3.5-5.0); Albumin Globulin Ratio 0.8 (1.0-2.8); Alkaline Phosphatase 107 U/L (38-126); Aspartate Aminotransferase 78 IU/L (17-59); Bilirubin Total 3.3 mg/dL (0.2-1.3); Blood Urea Nitrogen 11 mg/dL (9-20); Calcium 8.4 mg/dL (8.4-10.2); Carbon Dioxide 26 mmol/L (22-32); Chloride 96 mmol/L (98-107); Estimated Glomerular Filt Rate > 60.0 mL/min (>60); Globulin 3.8 g/dL (1.7-4.1); Glucose 100 mg/dL (70-100); HEMOLYSIS < 15 (0-50); Sodium 126 mmol/L (137-145); Total Protein 6.9 g/dL (6.3-8.2)
--- NOTE | 2020-09-18 08:00 | PM.PN.1 ---
Subjective Subjective Date Patient Seen: 09/18/20 Time Patient Seen: 08:00 Interval history: Patient is alert this morning and denies any pain. Reports that he was able to sleep overnight. Appetite is good, tolerating diet with no nausea or vomiting. Participating in therapy. ARMANDO Sheriff, palliative care reports that she did visit with patient and his sister yesterday. She reports that he has completed a POLST form but seems to lack insight into what it meant. She is planning to meet with him again tomorrow morning at 10:30 a.m.. Feels that he is very afraid of dying. Exam Vital Signs (past 8 hours): - 09/18/20 00:36 09/18/20 01:00 09/18/20 02:00 Pulse Rate 82 81 Respiratory Rate 18 18 Blood Pressure 153/94 H 148/88 H Pulse Oximetry 93 91 92 09/18/20 03:00 09/18/20 03:13 09/18/20 06:00 Pulse Rate 83 79 Respiratory Rate 21 22 Blood Pressure 154/91 H Pulse Oximetry 90 L 93 95 Fraction of Inspired Oxygen 35 Oxygen Delivery Method Nasal Cannula Oxygen Flow Rate 2 Narrative Exam Narrative: GENERAL: Alert and oriented obese male, appearing older than stated age, no acute distress HEENT: Head normocephalic/atraumatic. Pupils equal, round, and reactive to light and accomodation. Conjunctivae are injected with some pustular exudate. Extraocular muscles intact. Tympanic membranes clear. Nasal mucosa with dried blood, septum midline. Oral mucosa moist, no lesions. Neck soft and supple, no lymphadenopathy. LUNGS: Clear to ausculation bilaterally, bilateral expiratory wheezes in bases. CV: Normal S1 and S2 with regular rate and rhythm, no audible murmurs, rubs or gallops. ABDOMEN: Soft, non-tender, non-distended, no organomegaly. Positive bowel sounds. EXTREMITIES: Joint effusion, right knee. NEURO: Cranial nerves II through XII grossly intact, no focal deficits. PSYCH: Alert and oriented x 3. SKIN: Excoriation, right posterior shoulder, no signs of infection. Objective Labs Result Diagrams: 09/18/20 05:02 09/18/20 05:02 Labs: Laboratory Results - last 24 hr 09/18/20 09/18/20 09/18/20 05:02 05:02 05:02 WBC 4.1 L RBC 3.59 L Hgb 13.1 L Hct 37.6 L MCV 104.8 H MCH 36.4 H MCHC 34.8 RDW 13.4 Plt Count 58 L Neut % (Auto) 63.9 Lymph % (Auto) 16.0 L Semin[place] % (Auto) 18.3 H Eos % (Auto) 1.3 L Baso % (Auto) 0.5 Neut # (Auto) 2600 Lymph # (Auto) 700 L [place] # (Auto) 800 Eos # (Auto) 100 Baso # (Auto) 0 PT 17.8 H INR 1.5 H Sodium 126 L Potassium 4.1 Chloride 96 L Carbon Dioxide 27 BUN 11 Creatinine 0.45 L Estimated GFR > 60.0 BUN/Creatinine Ratio 24.4 H Glucose 99 Calcium 8.5 Phosphorus 2.9 Magnesium 1.6 Total Bilirubin 3.3 H Conjugated Bilirubin 0.3 Unconjugated Bilirubin 1.8 H AST 77 H ALT 45 Alkaline Phosphatase 109 Total Protein 6.9 Albumin 3.1 L Globulin 3.8 Albumin/Globulin Ratio 0.8 L Lipase 237 09/18/20 05:02 WBC RBC Hgb Hct MCV MCH MCHC RDW Plt Count Neut % (Auto) Lymph % (Auto) Seminole % (Auto) Eos % (Auto) Baso % (Auto) Neut # (Auto) Lymph # (Auto) [place]in[place] # (Auto) Eos # (Auto) Baso # (Auto) PT INR Sodium 126 L Potassium 4.0 Chloride 96 L Carbon Dioxide 26 BUN 11 Creatinine 0.44 L Estimated GFR > 60.0 BUN/Creatinine Ratio 25.0 H Glucose 100 Calcium 8.4 Phosphorus Magnesium Total Bilirubin 3.3 H Conjugated Bilirubin Unconjugated Bilirubin AST 78 H ALT 45 Alkaline Phosphatase 107 Total Protein 6.9 Albumin 3.1 L Globulin 3.8 Albumin/Globulin Ratio 0.8 L Lipase Assessment & Plan Assessment & Plan narrative: 54-year-old male with known history of severe alcoholism admitted for acute alcohol withdrawal with delirium tremens improving now on hospital day number 6. His requirements for lorazepam continue to decrease and he is becoming more alert. Still showing little insight with request for outpatient drug and alcohol treatment. Has had palliative care consult yesterday. Plan: Continue with supportive care and CICT protocol. Patient is not medically stable at this time to be transferred to inpatient rehab but is showing improvement. Palliative care to see patient again tomorrow. Assessment 2. Severe thrombocytopenia without acute bleeding and continued improvement Plan: Patient is status post vitamin K injection x3. He is not having any bleeding. His platelets have improved. It is suspected that the etiology of this is bone marrow suppression secondary to alcohol abuse. Assessment 3. Known esophageal varices without current bleeding Plan: Continue to monitor closely. Patient and family understand that this would be disastrous if he did start bleeding. Assessment 4. Hypokalemia improved Plan: Will continue to monitor. Continue with potassium and IV fluids Assessment 5. Hypophosphatemia, resolved Plan: Will continue to monitor Assessment 6. Hypomagnesemia, resolved Plan: Will continue to monitor Assessment 7. GI prophylaxis Plan: Continue on PPI at high dose given thrombocytopenia and likley esophageal varices Assessment 8. DVT prophylaxis Plan: Patient refuses SCDs. Lovenox is contraindicated due to severe thrombocytopenia Assessment number 9. Right knee pain with large joint effusion concern for trauma, x-ray negative for fracture Plan: Continue ice, pain management, and physical therapy. Assessment 10. Probable sleep apnea undiagnosed but on BiPAP when sleeping Plan: Continue the same and will plan to do sleep study as outpatient pending patient's compliance Assessment 11. Infectious Disease: Patient on empiric treatment with Levaquin. We will complete a 7 day course and then discontinue. Assessment 12. History of depression currently on citalopram Plan: Continue the same. Unable to determine at this time. Assessment 13. Acute pancreatitis secondary to alcohol abuse improving Plan: Continue to monitor. Continue to abstain from alcohol. Assessment 14. Hepatitis C currently untreated due to alcohol abuse Assessment 15. Hepatic dysfunction secondary to alcohol abuse and hepatitis-C infection with worsening labs but no acute symptoms Plan: Will continue to monitor Assessment 16. History of tobacco abuse without current lung problems Plan: Will continue to monitor
[2020-09-18] MEDS: MAGNESIUM CHLORIDE 64 MG TABLET PO (09:17)
[2020-09-18] MEDS: polyethylene glycoL 3350 17 GM POWD.PACK PO (09:17)
[2020-09-18] MEDS: NICOTINE 14 PATCH 14 MG TOP (09:17)
[2020-09-18] MEDS: MULTIVITAMIN 1 TABLET 1 TAB PO (09:18)
[2020-09-18] MEDS: CITALOPRAM 10 MG TABLET PO (09:18)
[2020-09-18] MEDS: DOCUSATE 100 MG CAPSULE PO ×2 (09:18→20:58)
[2020-09-18] MEDS: FOLIC ACID 1 MG TABLET PO (09:18)
[2020-09-18] MEDS: METOPROLOL IR 25 MG TABLET PO ×2 (09:18→20:59)
[2020-09-18] MEDS: PANTOPRAZOLE 40 MG VIAL IV ×2 (09:18→20:59)
--- NOTE | 2020-09-18 11:38 | PT.IPTN ---
Current Diagnoses Alcohol dependence with withdrawal, unspecified (09/13/20) Alcohol induced acute pancreatitis without necrosis or infection (09/13/20) Physical Therapy Treatment Note M2 PT-IP Current Condition Start: 09/16/20 13:33 Freq: NEEDED Status: Active Protocol: Document 09/16/20 10:47 AB (Rec: 09/16/20 13:43 AB [id number]) Physical Therapy Current Condition Current Condition Evaluation Date 09/16/20 Treatment Diagnosis alcoholic pancreatitis; alcoholic withdrawal; difficulty in walking Onset Date 09/13/20 Precautions Other Precautions falls M3 PT-IP Subjective Start: 09/16/20 13:33 Freq: NEEDED Status: Active Protocol: Document 09/18/20 11:00 KS (Rec: 09/18/20 12:15 KS [id number]) Subjective Physical Therapy Visit Type Type Treatment Note Visit Start Time 11:00 Visit Stop Time 11:38 Total Visit Minutes 38 Notes Co Tx with OT, COMMODITY SUPERVISOR present and provided cuing and assist with mobility as needed for safety. Number of CARGO SERVICE SUPERVISOR Visits 2 Physical Therapy Visit Comments Patient Comments Pt agreeable to working with therapy. M4 PT-IP Mobility and Gait Start: 09/16/20 13:33 Freq: NEEDED Status: Active Protocol: Document 09/18/20 11:00 KS (Rec: 09/18/20 12:15 KS [id number]) PT-Bed Mobility Assessment Rolling Type of Rolling Log Rolling,Roll to Left Level of Assist Minimal Assistance Supine to Sit Supine to Sit Minimal Assistance,1 Person Assistance,Bedrails Scooting Scooting to Edge of Bed Minimal Assistance PT-Transfer Assessment Sit to and From Stand Sit to and from Stand Maximum Assistance,2 Person Assistance,Use of Upper Extremities Equipment Transfer Assistive Device Gait Belt,Front Wheeled Walker Orthotic/Prosthetic Devices or Brace: No Transfers Transfer Destination Bed Transfer Technique Stand Step Pivot Transfer Ability Level of Assist Maximum Assistance,2 Person Assistance,Use of Upper Extremities Comments Mobility Comments Pt in bed upon arrival from therapy. Pt Min A and cues for logroll to L and sidelying<> sit. Pt c/o of slight nausea when sitting on EOB, but subsided in ~3 min and pt was able to maintain seated balance. Min A for trunk support to maintain balance for application of socks. Pt then sit<>stand w/ Mod A x3 and performed stand step pivot transfer to BSC w/ verbal and tactile cues for FWW management, sequencing, and hand placement Mod A x3. After using BSC, pt Max A x2 and cues for sit<>stand w/ FWW. Pt then ambulated ~3ft w/ FWW and Max A x2 to chair. Pt required max verbal and tactile cues for sequencing and FWW management as well as Max a for slow descent. Pt able to scoot back in chair w/ CGA and cues using BUE. Pt positioned in chair w/ all needs in reach and chair alarm on. Gait Assessment Gait Gait Assistance Required: Maximum Assistance,2 Person Assist Distance (Feet) 3 Able to Maintain Weight Bearing Status Yes During Gait Assistive Devices Assistive Device Gait Belt,Front Wheeled Walker Orthotic/Prosthetic Devices or Brace: No Gait Deviations General Gait Pattern Antalgic,Decreased Stride Length,Decreased Feet Clearance,Wide Based Gait Factors Limiting Gait Function Factors Limiting Gait Function Decreased Activity Tolerance, Decreased Strength, Incoordination,Limited Range of Motion,Poor Balance,Poor Safety Awareness Comments Gait Comments Please refer to mobility section for details. Pt only able to complete 1x stand step pivot and 3 ft ambulation w/ FWW. PT-Balance Assessment Sitting Balance and Reactions Static Sitting Balance Ability Fair Dynamic Sitting Balance Ability Fair Standing Balance and Reactions Static Standing Balance Ability Poor Dynamic Standing Balance Ability Poor Device Used FWW M5 PT-IP Objective Assessments Start: 09/16/20 13:33 Freq: NEEDED Status: Active Protocol: Document 09/16/20 10:47 AB (Rec: 09/16/20 13:43 AB [id number]) Orientation Orientation/Cognition Level of Alertness Alert Orientation Name,Month,Year,Place, Situation Safety Awareness Decreased Safety Awareness Comments initially was sleepy but became awake upon sitting Gross Range of Motion Lower Extremity ROM Assessment Within Functional Limits Strength Lower Extremity Strength Assessment Right Impaired Knee 3+/5 Muscle Tone Comments Muscle Tone Comments tremors whole body during standing M6 PT-IP Treatment Start: 09/16/20 13:33 Freq: NEEDED Status: Active Protocol: Document 09/18/20 11:00 KS (Rec: 09/18/20 12:15 KS [id number]) Physical Therapy Treatment Education Education Provided Safety M7 PT-IP Assessment and Plan Start: 09/16/20 13:33 Freq: NEEDED Status: Active Protocol: Document 09/18/20 11:00 KS (Rec: 09/18/20 12:15 KS [id number]) PT Summary Assessment and Plan Potential Rehabilitation Potential Fair Status of Condition at Evaluation Evolving Summary Impairments Pain,ROM,Strength,Balance, Coordination,Sensation,Tone, Cognition,Bed Mobility, Transfers,Gait,Activity Tolerance Assessment Summary Pt showed slight improvement w / bed mobility and transfers today. Min A for logroll and sidelying to sit w/ Max cues. Mod A x3 or Max A x2 for sit<> stand, Max A x2 for 3 ft ambulation w/ FWW. Pt required max verbal and tactile cues w / all transfers for sequencing , FWW management, hand placement, and slow descent when sitting. Pt able to maintan seated balance EOB when sitting still, however required Min A for trunk support when donning socks. Pt will require SNF to improve strength and functional mobility. Goals Bed Mobility Goal Minimal Assistance Transfer Goal Minimal Assistance,Front Wheeled Walker Gait Goal Minimal Assistance,Front Wheel Walker Gait Distance 75 Days to Meet Goals 10 Frequency of Treatment Frequency Of Treatment Once a Day Treatment Plan Physical Therapy Treatment Plan Bed Mobility Training,Transfer Training,Gait Training, Therapeutic Exercise,Balance Retraining,Discharge Planning, Hot or Cold Pack,Neuromuscular Re-ed,Coordination Retraining Recommendations To Nursing Amount of Assist Needed 2 Person Assist Discharge Recommendations PT Discharge Recommendations SNF Rehab Transportation Needs at Discharge Wheelchair/Cabulance
--- NOTE | 2020-09-18 11:49 | OT.IP.TRT ---
Current Diagnoses Alcohol dependence with withdrawal, unspecified (09/13/20) Alcohol induced acute pancreatitis without necrosis or infection (09/13/20) Occupational Therapy Treatment Note M2 OT-IP Current Condition Start: 09/16/20 13:09 Freq: Status: Active Protocol: Document 09/16/20 13:10 CGR (Rec: 09/16/20 13:25 CGR [id number]) Occupational Therapy Current Condition Current Condition Evaluation Date 09/16/20 Treatment Diagnosis Alcoholic pancreatitis, hepatitis with cirrhosis. Diagnosis Onset Date 09/13/20 M3 OT- IP Subjective and Pain Start: 09/16/20 13:09 Freq: Status: Active Protocol: Document 09/18/20 12:16 [facility] (Rec: 09/18/20 12:29 [facility] [id number]) OT- Subjective Occupational Therapy Visit Type Type Treatment Note Visit Start Time 11:00 Visit Stop Time 11:49 Total Visit Minutes 49 Occupational Therapy Visit Comments Patient Comments Pt agreed to get up and wanting to try to have a bowel movement. Patient/Caregiver Goals TO get better. OT Pain Assessment Pain When Pain Assessed At Rest Pain Present Pain Present Denied Pain M4 OT- IP ADL's Start: 09/16/20 13:09 Freq: Status: Active Protocol: Document 09/18/20 12:16 [facility] (Rec: 09/18/20 12:29 [facility] [id number]) OT [id number] Comments OT Self-Feeding Comments NOt at meal time. OT ADL-Grooming General Evaluation Grooming Ability Standby Assistance Comments OT Grooming Comments Pt able to wash his face and hands after set-up of wash cloth. OT ADL-Dressing General Eval Lower Body Dressing Ability Maximum Assistance Areas Needing Assistance Underpants/Brief,Socks Comments OT Dressing Comments Pt able his left leg over with assist of his hands and then able to use right hand to initiate putting on the sock over his left big toe and then needing assist to guille his foot and up over. Pt dependent for right foot. Pt able to assist to lift up his feet to initially get his brief on and assist to pull up over his hips. OT ADL-Toileting General Evaluation Toileting Ability Maximum Assistance,Total Assistance Areas Needing Assistance Manage Clothing,Perform Perineal Hygiene Comments OT Toileting Comments MAX AX 2 to stand pt to FWW while nursing aid able to assist with hygiene needs. OT ADL-Bathing Bathing Type Bathing Type Sponge Bath General Evaluation Bathing Ability Maximal Assistance Comments OT Bathing Comments Pt able to assist to wash his face , chest , and arms and needing assist for the rest. M5 OT- IP IADL's Start: 09/16/20 13:09 Freq: Status: Active Protocol: Document 09/16/20 13:10 CGR (Rec: 09/16/20 13:25 CGR [id number]) OT-Instrumental Activities of Daily Living Deficits IADL Deficits Identified Deficits Home Safety Awareness Awareness of Need for Assistance at Home Decreased Awareness Ability to Problem Solve Emergency Unable to Problem Solve Situations M6 OT- IP Functional Cognition Start: 09/16/20 13:09 Freq: Status: Active Protocol: Document 09/18/20 12:16 [facility] (Rec: 09/18/20 12:29 [facility] [id number]) Cognitive Factors Limiting Selfcare Function Cognitive Ability Level of Alertness Alert Patient Orientation Name,Month,Date,Year,Place, Situation Attention Span Ability Capable of Focused Attention, Capable of Sustained Attention Ability to Follow Commands Able to Follow One Step Commands Memory Description Short Term Impaired Cognitive Comments Cognitive Assessment Comments Pt able to follow commands to assist for sponge bathing. M7 OT- IP Mobility and Balance Start: 09/16/20 13:09 Freq: Status: Active Protocol: Document 09/18/20 12:16 [facility] (Rec: 09/18/20 12:29 [facility] [id number]) OT- Bed Mobility Assessment Rolling Type of Rolling Roll to Right Level of Assistance Minimal Assistance,1 Person Assistance,Bedrails Supine to Sit Supine to Sit Assist Minimal Assistance,1 Person Assistance,Bedrails Scooting Scooting to Edge of Bed Minimal Assistance,1 Person Assistance OT-Transfer Assessment Sit to and From Stand Sit to and from Stand Maximum Assistance,2 Person Assistance Transfers Transfer Ability Maximum Assistance,2 Person Assistance Technique Transfer Destination Bed,Bedside Commode,Shower Stall Devices Transfer Assistive Devices Gait Belt,Front Wheeled Walker Comments Mobility Comments Pt initial stand with MODA X 3 and able to transfer to [facility]. MAX X 2 with FWW to walk a few steps and turn to the recliner. Pt needing assist to help place his left hand up to the FWW, asisst to guide the FWw, and assist for steadying and balance. Notified nursing pending pt's fatigue transfers only x2 person or use of sushil lift. OT- Balance Assessment Sitting Balance and Reactions Static Sitting Balance Ability Fair Dynamic Sitting Balance Ability Poor Standing Balance and Reactions Static Standing Balance Ability Poor Comments Other Balance Tests/Deviations/Treatment Pt today mild posterior lean : and duringn dynamic balance of putting on his socks needign AMAURY for balance. M8 OT- IP Objective Assessments Start: 09/16/20 13:09 Freq: Status: Active Protocol: Document 09/16/20 13:10 CGR (Rec: 09/16/20 13:25 CGR [id number]) OT Gross Range of Motion Upper Extremity Range of Motion Assessment Within Functional Limits OT Strength Upper Extremity Strength Assessment Bilaterally Impaired Hand Home Health Rn Strength Hand Dominance Right Comments Strength Comments 3+/5 OT- Coordination Assessment Upper Extremity Finger to Nose Test Bilateral UE Impaired Finger Tapping Test Bilateral UE Impaired OT-Muscle Tone Assessment Muscle Tone WNL Yes OT Sensation Assessment Edema Edema Absent M9 OT- IP Assessment and Plan Start: 09/16/20 13:09 Freq: Status: Active Protocol: Document 09/18/20 12:16 [facility] (Rec: 09/18/20 12:29 [facility] [id number]) OT Summary Assessment and Plan Potential Rehabilitation Potential Good Analytic Complexity at Evaluation High Summary OT Impairments Pain,Strength,Balance, Coordination,Functional Cognition,Functional Mobility, Self-Feeding,Grooming,Dressing ,Toileting,Bathing,Toilet Transfers,Shower Transfers, Activity Tolerance Progress Towards Goals Progressing Toward Goals Assessment Summary Pt able to transfer today and actively participate in transfers and ADl needs. Pt will benefit from skilled rehab prior to going home. Pt was very cooperative, pleasant , and motivated to get better. Goals Self-Feeding Goal Independent Grooming Goal Independent Dressing Goal Independent Toileting Goal Independent Bathing Goal Independent Toilet Transfer Goal Independent Shower Transfer Goal Independent Days to Meet Goals 13 Frequency of Treatment Frequency Of Treatment Once a Day Treatment Plan OT Treatment Plan ADL Training,Functional Cognition Training,Functional Mobility,Patient/Family Education,Discharge Planning Other Treatment Recommendations and Next BSC transfer MODA X 2 Treatment Focus Discharge Recommendations OT Discharge Recommendations SNF Rehab Home Equipment Needs TBD Transportation Needs at Discharge Wheelchair/Cabulance
--- NOTE | 2020-09-18 11:54 | CM.DPNOTE ---
DCP Cont Update on efforts to secure SNF for patient; no bed secured yet, barriers to placement include [place] coverage and h/o heavy ETOH w/o termination clerk plan: Following SNFs do not take [place]- [place]: [facility] Go[facility], [facility] Ay[facility], [facility]: [facility] [place]: [place] Following SNFs said no, patient declined: [facility] not taking referrals, [facility] not taking referrals, [facility] [place] [facility]- not taking referrals, [facility]-not taking referrals Following are full: [facility] Swing beds, [facility] Swing Beds Awaiting CB from the following: [facility], [facility] [place], [facility] in [place] reviewing. Could also call [facility] in [place] and [facility] in [place], could also broaden search to [place] MANCERA
--- NOTE | 2020-09-18 14:51 | PC.NURSE ---
Pt has been sleeping most of this shift. He states he is catching up on sleep from the past month. He wakes to verbal and answers questions appropriately with clear speech. He does have a minor tremor with activity but not observed with rest. He has been on RA while awake. He was agreeable to use the bipap during sleep for sleep apnea. He tolerated for about an hour and then removed the mask. Spoke with RT about bipap vs cpap and a CPAP machine was brought into room. Educated to use of IS. Pt was able to get up to 1700 with 4 attempts. Bed alarm on. Call light in reach.
[2020-09-18] MEDS: HYDROCODONE/ACET 5/325 TABLET 1 TAB PO (16:58)
[2020-09-18] MEDS: levoFLOXacin 250 MG TABLET 750 MG PO (20:59)
--- NOTE | 2020-09-18 21:42 | PC.NURSE ---
shift note: Pt AAOx4, cooperative with care, denies pain at this time. CIWA = 1 No ativan required this shift. VSS, afebrile. IV NS with 20 KCL @ 75cc/hr continues. Pt incontinent of urine, brief applied. CPAP while sleeping. Will continue to monitor.
[2020-09-19] VITALS (9 sets, daily range): BP systolic 141–146; BP diastolic 80–98; PULSE 77–81; RESP 16–27; TEMP 36.7–37.4; O2SAT 91–96
[2020-09-19] MEDS: KCL 20 MEQ IN NS 1,000 ML 75 MEQ IV (03:14)
[2020-09-19 05:37] LABS: INR 1.5 (0.9-1.3); Prothrombin Time 17.4 SECONDS (10.1-12.7)
[2020-09-19 05:45] LABS: Add Manual Diff / Slide Review NO; Alanine Aminotransferase 45 IU/L (<50); Albumin 3.1 g/dL (3.5-5.0); Albumin Globulin Ratio 0.8 (1.0-2.8); Alkaline Phosphatase 110 U/L (38-126); Aspartate Aminotransferase 87 IU/L (17-59); BUN Creatinine Ratio 20.4 (6-22); Basophils Absolute Auto 0 /uL (0-100); Basophils Percent Auto 0.7 % (0-2); Bilirubin Conjugated 0.1 md/dL (0.0-0.3); Bilirubin Total 3.2 mg/dL (0.2-1.3); Bilirubin Unconjugated 1.7 mg/dL (0.0-1.1); Blood Urea Nitrogen 10 mg/dL (9-20); Calcium 8.2 mg/dL (8.4-10.2); Carbon Dioxide 26 mmol/L (22-32); Chloride 97 mmol/L (98-107); Eosinophils Absolute Auto 100 /uL (0-450); Eosinophils Percent Auto 1.5 % (2-4); Estimated Glomerular Filt Rate > 60.0 mL/min (>60); Globulin 3.7 g/dL (1.7-4.1); Glucose 92 mg/dL (70-100); HEMOLYSIS < 15 (0-50); Hematocrit 37.1 % (41-53); Hemoglobin 12.8 g/dL (13.5-17.5); Lipase 312 U/L (23-300); Lymphocytes Absolute Auto 800 /uL (1100-4500); Lymphocytes Percent Auto 21.8 % (25-40); Magnesium 1.6 mg/dL (1.6-2.3); Mean Corpuscular HGB Conc 34.5 % (30-36); Mean Corpuscular Hemoglobin 36.3 PG (26-34); Mean Corpuscular Volume 105.1 fL (80-100); Monocytes Absolute Auto 800 /uL (0-900); Monocytes Percent Auto 20.4 % (3-14); Neutrophils Absolute Auto 2100 /uL (1500-7000); Neutrophils Percent Auto 55.6 % (50-75); Platelet Count 76 X10^3/uL (150-400); Potassium 3.9 mmol/L (3.4-5.1); Red Blood Cell Count 3.53 X10^6/uL (4.5-5.9); Red Cell Distribution Width 13.4 % (11.6-14.8); Sodium 127 mmol/L (137-145); Total Protein 6.8 g/dL (6.3-8.2); White Blood Cell Count 3.7 X10^3/uL (4.5-11.0)
[2020-09-19] MEDS: SENNOSIDES 8.6 MG TABLET PO (08:51)
[2020-09-19] MEDS: NICOTINE 14 PATCH 14 MG TOP (08:51)
[2020-09-19] MEDS: MULTIVITAMIN 1 TABLET 1 TAB PO (08:51)
[2020-09-19] MEDS: polyethylene glycoL 3350 17 GM POWD.PACK PO (08:51)
[2020-09-19] MEDS: CITALOPRAM 10 MG TABLET PO (08:51)
[2020-09-19] MEDS: METOPROLOL IR 25 MG TABLET PO ×2 (08:51→21:02)
[2020-09-19] MEDS: FOLIC ACID 1 MG TABLET PO (08:51)
[2020-09-19] MEDS: DOCUSATE 100 MG CAPSULE PO (08:51)
[2020-09-19] MEDS: PANTOPRAZOLE 40 MG VIAL IV ×2 (08:51→21:03)
[2020-09-19] MEDS: MAGNESIUM CHLORIDE 64 MG TABLET PO (08:52)
--- NOTE | 2020-09-19 12:10 | PT.IPTN ---
Current Diagnoses Alcohol dependence with withdrawal, unspecified (09/13/20) Alcohol induced acute pancreatitis without necrosis or infection (09/13/20) Physical Therapy Treatment Note M2 PT-IP Current Condition Start: 09/16/20 13:33 Freq: NEEDED Status: Active Protocol: Document 09/16/20 10:47 AB (Rec: 09/16/20 13:43 AB [id number]) Physical Therapy Current Condition Current Condition Evaluation Date 09/16/20 Treatment Diagnosis alcoholic pancreatitis; alcoholic withdrawal; difficulty in walking Onset Date 09/13/20 Precautions Other Precautions falls M3 PT-IP Subjective Start: 09/16/20 13:33 Freq: NEEDED Status: Active Protocol: Document 09/19/20 11:50 KS (Rec: 09/19/20 13:58 KS [id number]) Subjective Physical Therapy Visit Type Type Treatment Note Visit Start Time 11:50 Visit Stop Time 12:10 Total Visit Minutes 20 Notes OC-treat w/ OT. Number of DESIGN LEAD Visits 3 Physical Therapy Visit Comments Patient Comments Pt agreeable to working with therapy. M4 PT-IP Mobility and Gait Start: 09/16/20 13:33 Freq: NEEDED Status: Active Protocol: Document 09/19/20 11:50 KS (Rec: 09/19/20 13:58 KS [id number]) PT-Bed Mobility Assessment Supine to Sit Supine to Sit Standby Assistance,Bedrails Scooting Scooting to Edge of Bed Standby Assistance PT-Transfer Assessment Sit to and From Stand Sit to and from Stand Moderate Assistance,2 Person Assistance,Use of Upper Extremities Equipment Transfer Assistive Device Gait Belt,Front Wheeled Walker Orthotic/Prosthetic Devices or Brace: No Transfers Transfer Destination Chair,Toilet Transfer Technique pt ambulated w/ FWW Transfer Ability Level of Assist Moderate Assistance,2 Person Assistance,Use of Upper Extremities Comments Mobility Comments Pt in bed upon arrival from therapy. SBA for sup<>sit w/ bed rails and SBA for scooting to EOB. Mod A x2 and cues for sit<>stand. Pt then ambulated ~10 ft Mod A x2 w/ FWW to toilet w/ 1x knee buckling, Mod A and hand rails for stand <>sit. Mod A x2 for sit<>stand from toilet. Pt then ambulated to chair ~10 ft w/ FWW and Mod A verbal and tactile cues for FWW management. Instructed pt in LE strengthening exercises including ankle pumps, quad sets, and glute sets. Pt left in chair w/ OT in room. Gait Assessment Gait Gait Assistance Required: Moderate Assistance,2 Person Assist Distance (Feet) 20 Able to Maintain Weight Bearing Status Yes During Gait Assistive Devices Assistive Device Gait Belt,Front Wheeled Walker Orthotic/Prosthetic Devices or Brace: No Gait Deviations General Gait Pattern Antalgic,Decreased Stride Length,Decreased Feet Clearance,Wide Based Gait Factors Limiting Gait Function Factors Limiting Gait Function Decreased Activity Tolerance, Decreased Strength, Incoordination,Limited Range of Motion,Poor Balance,Poor Safety Awareness Comments Gait Comments Pt ambulated to and from bathroom Mod A x2 w/ 1x knee buckling requiring Mod A to recover. Pt needed frequent verbal and tactile cues for FWW use. PT-Balance Assessment Sitting Balance and Reactions Static Sitting Balance Ability Fair Dynamic Sitting Balance Ability Fair Standing Balance and Reactions Static Standing Balance Ability Poor Dynamic Standing Balance Ability Poor Device Used FWW M5 PT-IP Objective Assessments Start: 09/16/20 13:33 Freq: NEEDED Status: Active Protocol: Document 09/16/20 10:47 AB (Rec: 09/16/20 13:43 AB [id number]) Orientation Orientation/Cognition Level of Alertness Alert Orientation Name,Month,Year,Place, Situation Safety Awareness Decreased Safety Awareness Comments initially was sleepy but became awake upon sitting Gross Range of Motion Lower Extremity ROM Assessment Within Functional Limits Strength Lower Extremity Strength Assessment Right Impaired Knee 3+/5 Muscle Tone Comments Muscle Tone Comments tremors whole body during standing M6 PT-IP Treatment Start: 09/16/20 13:33 Freq: NEEDED Status: Active Protocol: Document 09/19/20 11:50 KS (Rec: 09/19/20 13:58 KS [id number]) Physical Therapy Treatment Exercises Exercises Ankle Pumps,Gluteal Sets,Quad Sets Education Education Provided Safety M7 PT-IP Assessment and Plan Start: 09/16/20 13:33 Freq: NEEDED Status: Active Protocol: Document 09/19/20 11:50 KS (Rec: 09/19/20 13:58 KS [id number]) PT Summary Assessment and Plan Potential Rehabilitation Potential Fair Status of Condition at Evaluation Evolving Summary Impairments Pain,ROM,Strength,Balance, Coordination,Sensation,Tone, Cognition,Bed Mobility, Transfers,Gait,Activity Tolerance Assessment Summary Pt SBA for bed mobility today, Mod A x2 for transfers and ambulation. Pt tolerated ~20 ft ambulation w/ F WW w/ 1x knee buckling requiring Mod A to recover. Pt needed frequent verbal and tactile cues for FWW management. Instructed pt in LE exercises including ankle pumps, quad sets, and glute sets to improve strength and blood flow. Pt will require SNF to improve functional mobility. Goals Bed Mobility Goal Minimal Assistance Transfer Goal Minimal Assistance,Front Wheeled Walker Gait Goal Minimal Assistance,Front Wheel Walker Gait Distance 75 Days to Meet Goals 10 Frequency of Treatment Frequency Of Treatment Once a Day Treatment Plan Physical Therapy Treatment Plan Bed Mobility Training,Transfer Training,Gait Training, Therapeutic Exercise,Balance Retraining,Discharge Planning, Hot or Cold Pack,Neuromuscular Re-ed,Coordination Retraining Recommendations To Nursing Amount of Assist Needed 2 Person Assist Discharge Recommendations PT Discharge Recommendations SNF Rehab Transportation Needs at Discharge Wheelchair/Cabulance
--- NOTE | 2020-09-19 12:23 | OT.IP.TRT ---
Current Diagnoses Alcohol dependence with withdrawal, unspecified (09/13/20) Alcohol induced acute pancreatitis without necrosis or infection (09/13/20) Occupational Therapy Treatment Note M2 OT-IP Current Condition Start: 09/16/20 13:09 Freq: Status: Active Protocol: Document 09/16/20 13:10 CGR (Rec: 09/16/20 13:25 CGR [id number]) Occupational Therapy Current Condition Current Condition Evaluation Date 09/16/20 Treatment Diagnosis Alcoholic pancreatitis, hepatitis with cirrhosis. Diagnosis Onset Date 09/13/20 M3 OT- IP Subjective and Pain Start: 09/16/20 13:09 Freq: Status: Active Protocol: Document 09/19/20 15:34 CCC (Rec: 09/19/20 15:49 [facility] [id number]) OT- Subjective Occupational Therapy Visit Type Type Treatment Note Visit Start Time 11:48 Visit Stop Time 12:23 Total Visit Minutes 35 Occupational Therapy Visit Comments Patient Comments Pt agreed to get up. CLINICAL EDUCATION CONSULTANT present due to pt needing extensive assist for mobility needs Patient/Caregiver Goals TO get better. OT Pain Assessment Pain When Pain Assessed At Rest Pain Present Pain Present Denied Pain M4 OT- IP ADL's Start: 09/16/20 13:09 Freq: Status: Active Protocol: Document 09/19/20 15:34 [facility] (Rec: 09/19/20 15:49 [facility] [id number]) OT [id number] Comments OT Self-Feeding Comments NOt at meal time. OT ADL-Grooming General Evaluation Grooming Ability Standby Assistance Areas Needing Assistance Retrieving/Set-up of Grooming Items Comments OT Grooming Comments Pt able to wash his face and hands after set-up while seated. OT ADL-Oral Care General Eval Oral Care Ability Standby Assistance Comments Oral Care Comments Set-up assist while seated. OT ADL-Dressing General Eval Lower Body Dressing Ability Maximum Assistance Areas Needing Assistance Underpants/Brief Comments OT Dressing Comments Assist to get get his feet into the brief while seated on the toilet and assist to help pull up over his hips while having another person assist to stand pt. OT ADL-Toileting General Evaluation Toileting Ability Maximum Assistance Areas Needing Assistance Manage Clothing Comments OT Toileting Comments Pt able to wipe given a wash cloth appropriately, however needing assist for his brief. M5 OT- IP IADL's Start: 09/16/20 13:09 Freq: Status: Active Protocol: Document 09/16/20 13:10 CGR (Rec: 09/16/20 13:25 CGR [id number]) OT-Instrumental Activities of Daily Living Deficits IADL Deficits Identified Deficits Home Safety Awareness Awareness of Need for Assistance at Home Decreased Awareness Ability to Problem Solve Emergency Unable to Problem Solve Situations M6 OT- IP Functional Cognition Start: 09/16/20 13:09 Freq: Status: Active Protocol: Document 09/19/20 15:34 [facility] (Rec: 09/19/20 15:49 [facility] [id number]) Cognitive Factors Limiting Selfcare Function Cognitive Ability Level of Alertness Alert Patient Orientation Name,Month,Date,Year,Place, Situation Attention Span Ability Capable of Focused Attention, Capable of Sustained Attention Ability to Follow Commands Able to Follow One Step Commands Memory Description Short Term Impaired Cognitive Comments Cognitive Assessment Comments Pt able to follow commands for toileting and grooming needs appropriately today. Pt however needing cues for completeness for hygiene needs while toileting. M7 OT- IP Mobility and Balance Start: 09/16/20 13:09 Freq: Status: Active Protocol: Document 09/19/20 15:34 [facility] (Rec: 09/19/20 15:49 [facility] [id number]) OT- Bed Mobility Assessment Rolling Type of Rolling Roll to Left Level of Assistance Standby Assistance,Bedrails Supine to Sit Supine to Sit Assist Standby Assistance,Bedrails Scooting Scooting to Edge of Bed Standby Assistance,1 Person Assistance OT-Transfer Assessment Sit to and From Stand Sit to and from Stand Moderate Assistance,2 Person Assistance Transfers Transfer Ability Moderate Assistance,2 Person Assistance Technique Transfer Destination Bed,Chair,Toilet Devices Transfer Assistive Devices Gait Belt,Front Wheeled Walker Comments Mobility Comments Pt able to do his own bed mobility today with use of bed rail. MOD A x2 to stand with FWW and assist to help walk into the bathroom, and assist to help lower to the toilet as well as use of grab bar. Pt knees buckled while trying to get to the bathroom, therefore noticed nursing best to [place] [facility] [place] 2 person assist for now until pt more consistent on his feet for balance and safety with FWW. OT- Balance Assessment Sitting Balance and Reactions Static Sitting Balance Ability Good Dynamic Sitting Balance Ability Fair Standing Balance and Reactions Static Standing Balance Ability Poor Comments Other Balance Tests/Deviations/Treatment Today pt able to sit to : midline while on the edge of the bed. Pt unsteady on his feet as he tires and noted knees buckled with use of FWW and MODA x2 while walking to the toilet. M8 OT- IP Objective Assessments Start: 09/16/20 13:09 Freq: Status: Active Protocol: Document 09/16/20 13:10 CGR (Rec: 09/16/20 13:25 CGR [id number]) OT Gross Range of Motion Upper Extremity Range of Motion Assessment Within Functional Limits OT Strength Upper Extremity Strength Assessment Bilaterally Impaired Hand Bonus Clerk Strength Hand Dominance Right Comments Strength Comments 3+/5 OT- Coordination Assessment Upper Extremity Finger to Nose Test Bilateral UE Impaired Finger Tapping Test Bilateral UE Impaired OT-Muscle Tone Assessment Muscle Tone WNL Yes OT Sensation Assessment Edema Edema Absent M9 OT- IP Assessment and Plan Start: 09/16/20 13:09 Freq: Status: Active Protocol: Document 09/19/20 15:34 [facility] (Rec: 09/19/20 15:49 CCC [id number]) OT Summary Assessment and Plan Potential Rehabilitation Potential Good Analytic Complexity at Evaluation High Summary OT Impairments Pain,Strength,Balance, Coordination,Functional Cognition,Functional Mobility, Self-Feeding,Grooming,Dressing ,Toileting,Bathing,Toilet Transfers,Shower Transfers, Activity Tolerance Progress Towards Goals Progressing Toward Goals Assessment Summary Pt was cooperative and able to walk to the bathroom today with MOD A x2 with FWW. Pt also to participate in his ADL 's today. Pt still far from his baseline and would benefit from skilled rehab prior to going home. Goals Self-Feeding Goal Independent Grooming Goal Independent Dressing Goal Independent Toileting Goal Independent Bathing Goal Independent Toilet Transfer Goal Independent Shower Transfer Goal Independent Days to Meet Goals 12 Frequency of Treatment Frequency Of Treatment Once a Day Treatment Plan OT Treatment Plan ADL Training,Functional Cognition Training,Functional Mobility,Patient/Family Education,Discharge Planning Other Treatment Recommendations and Next shower Treatment Focus Discharge Recommendations OT Discharge Recommendations SNF Rehab Home Equipment Needs TBD Transportation Needs at Discharge Wheelchair/Cabulance
--- NOTE | 2020-09-19 15:10 | CM.DPNOTE ---
DCP Cont TC to [facility], [place]: Still reviewing and will f/u w/ E COMMERCE ANALYST/DCP team once review is complete. Unable to place additional calls today to SNF options d/t caseload demands. Met w/patient to review efforts, had lengthy conversation. Patient A+O, able to track well throughout conversation, unsure if patient will retain all info. Patient eager to return home when he can get up from bed on his own to the . Patient agreeable to HH, no agency preference. Patient understands it has been a challenge to find SNF w/his insurance and h/o polysubstance use. Patient admits he is tired of being addicted to ETOH and motivated to stay sober, states he has a lot to live for and was once very active and happy (when sober). Patient plans to f/u at [facility] upon DC. Patient shows good insight today into the severity of his current medical condition and the negative impact his heavy alcohol use has on his body. He is motivated to stay sober and agreeable to either SNF vs Home w/HH. If DC home is necessary, patient aware he will need to ask his sisters if they are able to help with items such as errands, grocery shopping, meals, and likely transportation. DCP team will continue to follow closely. If patient remains here Tuesday, another call to [facility] might be helpful, in case they have new bed availability. Patient may inevitably DC home w/HH and close outpt f/u, F2F and HH referral still needed. FIORDALIZA
--- NOTE | 2020-09-19 18:56 | PM.PN.1 ---
Subjective Subjective Date Patient Seen: 09/19/20 Time Patient Seen: 08:11 Interval history: Patient seen twice today. He was seen at 8:00 a.m. and then again at 6:45 p.m.. He is feeling much better. He was up ambulating some with a walker. His right knee is still painful but is improving. He has not required any further lorazepam. He has been off this now for almost 24 hours. He has not had further fevers. He is feeling much more clear and alert and states that he is committed to abstaining from alcohol. He has a history of 17 years sober. He does not want to go to inpatient treatment because of his dog. He feels that he can be successful doing outpatient treatment. He is not having abdominal pain. He is not having any difficulty breathing. He is not having any lower extremity edema No pains in the chest Review of systems is negative other than above Exam Vital Signs (past 8 hours): - 09/19/20 15:50 Temperature 99.2 F Pulse Rate 77 Respiratory Rate 16 Blood Pressure 141/93 H Pulse Oximetry 95 Fraction of Inspired Oxygen 35 Oxygen Delivery Method Room Air Oxygen Flow Rate 0 Narrative Exam Narrative: Afebrile, vital signs are stable Alert and oriented x3. He is more cognitively intact. He is able to converse and make eye contact. Oropharynx shows mucous membranes moist and pink Nares with no longer having crusting of blood Chest: Prolonged expiratory phase but no wheezes rhonchi or crackles Cor: Regular rate and rhythm without any murmur. Distant S1-S2 Abdomen: Positive bowel sounds, nondistended, no hepatosplenomegaly. No evidence of ascites Extremities no edema pulses intact Right knee with large effusion but improved extension and flexion. Objective Labs Result Diagrams: 09/19/20 05:03 09/19/20 05:03 Labs: Laboratory Results - last 24 hr 09/19/20 09/19/20 09/19/20 05:03 05:03 05:03 WBC 3.7 L RBC 3.53 L Hgb 12.8 L Hct 37.1 L MCV 105.1 H MCH 36.3 H MCHC 34.5 RDW 13.4 Plt Count 76 L Neut % (Auto) 55.6 Lymph % (Auto) 21.8 L [place] % (Auto) 20.4 H Eos % (Auto) 1.5 L Baso % (Auto) 0.7 Neut # (Auto) 2100 Lymph # (Auto) 800 L [place] # (Auto) 800 Eos # (Auto) 100 Baso # (Auto) 0 PT 17.4 H INR 1.5 H Sodium 127 L Potassium 3.9 Chloride 97 L Carbon Dioxide 26 BUN 10 Creatinine 0.49 L Estimated GFR > 60.0 BUN/Creatinine Ratio 20.4 Glucose 92 Calcium 8.2 L Phosphorus 3.0 Magnesium 1.6 Total Bilirubin 3.2 H Conjugated Bilirubin 0.1 Unconjugated Bilirubin 1.7 H AST 87 H ALT 45 Alkaline Phosphatase 110 Total Protein 6.8 Albumin 3.1 L Globulin 3.7 Albumin/Globulin Ratio 0.8 L Lipase 312 H Assessment & Plan Assessment & Plan narrative: 54-year-old male with severe alcoholism admitted for acute withdrawal Plan: Patient declined inpatient treatment though I suggest that this would be more effective. He understands this. He is confident and committed to his ability to abstain from alcohol. He is currently off of withdrawal protocol and is improving medically. We discussed transfer to skilled care facility for more aggressive physical therapy and treatment but at this point we are not able to find a bed and he is not interested in this option. He has made significant improvement today in his mobility. I anticipate that he will require hospitalization another 48-72 hours. He will need further monitoring, physical therapy. Assessment 2. Severe thrombocytopenia without evidence of bleeding Plan: Platelets are improving. It is suspected that thrombocytopenia secondary to direct effect of alcohol and with removing the alcohol his platelets are indeed improving. Obviously very tenuous in dangerous situation and that he has varices as well. We will continue to monitor Assessment 3. 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 Patient and family know the gravity of the situation. Especially in light of thrombocytopenia but overall medical condition improving Plan: Recheck CBC tomorrow. Will guaiac stools. Continue on proton pump inhibitor he will likely need to go home on this as well Assessment 4. Hypertension I think he probably has underlying hypertension Plan: Will continue on the 20/5 mg twice daily of metoprolol which seems to be controlling him. I think it will have to go home on this. Assessment 5. Depression Plan: Continue citalopram will anticipate he will go home with this. Assessment 6. Acute pancreatitis secondary to alcohol improved without current symptoms Plan: Continue to monitor Assessment 7. Infectious Disease patient was met. We treated with antibiotics. I believe tonight will be 7 days of Levaquin and he has not had further fever. There was no source found. He was treated empirically Plan: Will stop Levaquin after tonight's dose. Assessment 8. Hypokalemia improved Plan: Continue to monitor Assessment 9. Hypo magnesemia improved Plan continue to follow Assessment 10. Hypophosphatemia Plan: Continue with monitoring 60 minutes spent with patient in review of his chart meeting with him and discussing with his case with him and as well as his family
[2020-09-19] MEDS: levoFLOXacin 250 MG TABLET 750 MG PO (21:02)
[2020-09-19] MEDS: HYDROCODONE/ACET 5/325 TABLET 1 TAB PO (21:02)
--- NOTE | 2020-09-19 22:20 | PC.NURSE ---
shift note: Pt alert and oriented, cooperative with care. Ambulated to BR x1, with 1 person assist. OOB to chair for dinner meal. Was able to have a long conversation with his sister and MD talking about discharge planning. Medicated for pain in R Knee and shoulder x1, ICE pack to R knee.
[2020-09-20] VITALS (7 sets, daily range): BP systolic 140–152; BP diastolic 88–96; PULSE 57–95; RESP 16–20; TEMP 35.9–37.1; O2SAT 93–97
[2020-09-20 05:18] LABS: Add Manual Diff / Slide Review NO; Basophils Absolute Auto 0 /uL (0-100); Basophils Percent Auto 0.9 % (0-2); Eosinophils Absolute Auto 100 /uL (0-450); Eosinophils Percent Auto 1.8 % (2-4); Hematocrit 40.4 % (41-53); Lymphocytes Absolute Auto 900 /uL (1100-4500); Lymphocytes Percent Auto 24.9 % (25-40); Mean Corpuscular HGB Conc 34.8 % (30-36); Mean Corpuscular Hemoglobin 36.6 PG (26-34); Mean Corpuscular Volume 105.1 fL (80-100); Monocytes Absolute Auto 700 /uL (0-900); Monocytes Percent Auto 21.4 % (3-14); Neutrophils Absolute Auto 1800 /uL (1500-7000); Platelet Count 117 X10^3/uL (150-400); Red Blood Cell Count 3.84 X10^6/uL (4.5-5.9); Red Cell Distribution Width 13.6 % (11.6-14.8); White Blood Cell Count 3.5 X10^3/uL (4.5-11.0)
[2020-09-20 05:20] LABS: INR 1.5 (0.9-1.3); Prothrombin Time 17.5 SECONDS (10.1-12.7)
[2020-09-20 05:28] LABS: Alanine Aminotransferase 56 IU/L (<50); Albumin 3.5 g/dL (3.5-5.0); Albumin Globulin Ratio 0.9 (1.0-2.8); Alkaline Phosphatase 119 U/L (38-126); Aspartate Aminotransferase 108 IU/L (17-59); BUN Creatinine Ratio 20.4 (6-22); Bilirubin Total 2.9 mg/dL (0.2-1.3); Bilirubin Unconjugated 1.7 mg/dL (0.0-1.1); Blood Urea Nitrogen 11 mg/dL (9-20); Calcium 8.8 mg/dL (8.4-10.2); Carbon Dioxide 29 mmol/L (22-32); Chloride 94 mmol/L (98-107); Estimated Glomerular Filt Rate > 60.0 mL/min (>60); Glucose 109 mg/dL (70-100); HEMOLYSIS < 15 (0-50); Lipase 414 U/L (23-300); Magnesium 1.8 mg/dL (1.6-2.3); Phosphorous 3.2 mg/dL (2.5-4.5); Potassium 3.9 mmol/L (3.4-5.1); Sodium 128 mmol/L (137-145); Total Protein 7.5 g/dL (6.3-8.2)
--- NOTE | 2020-09-20 09:38 | PM.PN.1 ---
Subjective Subjective Date Patient Seen: 09/20/20 Time Patient Seen: 09:42 Interval history: Alcohol withdrawal. Patient feeling much better today. Complains of left lower rib pain as well as right knee pain sees in not apparent new pains. Denies any abdominal pain 3 much better but still feels ?wobbly?. Requiring a walker for ambulation. He is anticipating being discharged home tomorrow anticipating help from his sisters and we will hopefully arrange for some sore home health consult. He is looking for to taking shower today. Exam Vital Signs (past 8 hours): - 09/20/20 08:00 Temperature 97.3 F L Pulse Rate 57 L Respiratory Rate 20 Blood Pressure 140/88 Pulse Oximetry 97 Fraction of Inspired Oxygen 35 Oxygen Delivery Method Room Air Oxygen Flow Rate 0 Narrative Exam Narrative: Patient is resting quietly in his bed appears in no distress he was sleeping and he was easily awakened. Lungs are entirely clear. Heart regular rhythm no murmur gallop Abdomen normal bowel sounds no evidence of any no masses nontender around his abdomen. He has some tenderness of the left lower ribcage. Right knee seems bit the uncomfortable but there is no point tenderness or instability. Neuro exam is cranial nerves 2-12 intact. Strength sensation upper lower extremities symmetric. Paragraphs his mental status appears to be normal alert oriented Objective Labs Result Diagrams: 09/20/20 04:45 09/20/20 04:45 Labs: Laboratory Results - last 24 hr 09/20/20 09/20/20 09/20/20 04:45 04:45 04:45 WBC 3.5 L RBC 3.84 L Hgb 14.0 Hct 40.4 L MCV 105.1 H MCH 36.6 H MCHC 34.8 RDW 13.6 Plt Count 117 L Neut % (Auto) 51.0 Lymph % (Auto) 24.9 L [place] % (Auto) 21.4 H Eos % (Auto) 1.8 L Baso % (Auto) 0.9 Neut # (Auto) 1800 Lymph # (Auto) 900 L [place] # (Auto) 700 Eos # (Auto) 100 Baso # (Auto) 0 PT 17.5 H INR 1.5 H Sodium 128 L Potassium 3.9 Chloride 94 L Carbon Dioxide 29 BUN 11 Creatinine 0.54 L Estimated GFR > 60.0 BUN/Creatinine Ratio 20.4 Glucose 109 H Calcium 8.8 Phosphorus 3.2 Magnesium 1.8 Total Bilirubin 2.9 H Conjugated Bilirubin 0.0 Unconjugated Bilirubin 1.7 H AST 108 H ALT 56 H Alkaline Phosphatase 119 Total Protein 7.5 Albumin 3.5 Globulin 4.0 Albumin/Globulin Ratio 0.9 L Lipase 414 H Labs reviewed of significance is the has platelet count is up to 117,000, INR is 1.5, sodium 128, potassium 3.9. His his bilirubin has decreased but is liver function tests have increased as well as lipase Assessment & Plan Assessment & Plan narrative: 1. Alcohol withdrawal process has improved significantly. Patient seems to have recovered from the acute withdrawal. He is still has some unsteadiness is some weakness presumably from the medications as well as the process. Presumably will benefit from says some sort of alcohol treatment program yet to be determined by his primary care provider. 2. Pancreatitis his symptomatic Rose has improved but is lipase is increased. Additionally his liver function tests of increased. Will get an ultrasound of his abdomen is today anticipating it being unremarkable but the with increasing his numbers may be somewhat problematic if he gets discharged tomorrow. 3. Thrombocytopenia has improved. 4. New problems hyponatremia 5. Coagulopathy with an INR 1.5 is stable. Change medications for the time being
--- NOTE | 2020-09-20 09:45 | DI.US.S_ITS ---
PROCEDURE: US ABDOMEN LIMITED INDICATIONS: INCREASED LFTS TECHNIQUE: Real-time focused scanning was performed of the abdomen, with image documentation. COMPARISON: [facility], CT, CT ABDOMEN PELVIS W CON, 09/13/2020, 18:24. FINDINGS: The liver measures 17.7 cm craniocaudad and has increased echotexture consistent with fatty infiltration. No focal solid mass lesion is found. There is a calcified structure within the right hepatic lobe measuring only approximately 1.5 cm, also present on prior CT scanning and chronic in appearance. The gallbladder contains sludge but no stones, and the gallbladder wall is normal in thickness at 2.4 mm. No focal tenderness during sonographic palpation is found. Note is made that the common duct is 9.6 mm in diameter, above the upper limits of normal for a patient with gallbladder in place but this is a relatively nonspecific finding. The pancreas could not be seen due to bowel gas. IMPRESSION: Prominent fatty infiltration throughout the liver, also seen on CT scanning several days ago. Hepatic steatosis is considered the most likely cause of elevated liver function tests. Please correlate for underlying etiology. Chronic appearing small calcification within the right hepatic lobe also seen on prior CT scanning. No specific follow-up needed for that finding. 9.6 mm common duct above the upper limits of normal, a nonspecific finding. Depending on the clinical status follow-up assessment by MR cholangiography could be obtained electively. Given the absence of gallstones within the gallbladder lumen the likelihood of a distal common duct stone is considered relatively low. Dictated by: En Delarosa M.D. on 09/21/2020 at 9:39 Approved by: En Delarosa M.D. on 09/21/2020 at 9:44
[2020-09-20] MEDS: NICOTINE 14 PATCH 14 MG TOP (10:13)
[2020-09-20] MEDS: METOPROLOL IR 25 MG TABLET PO ×2 (10:13→21:07)
[2020-09-20] MEDS: FOLIC ACID 1 MG TABLET PO (10:13)
[2020-09-20] MEDS: polyethylene glycoL 3350 17 GM POWD.PACK PO (10:13)
[2020-09-20] MEDS: PANTOPRAZOLE 40 MG VIAL IV ×2 (10:13→21:07)
[2020-09-20] MEDS: MAGNESIUM CHLORIDE 64 MG TABLET PO (10:13)
[2020-09-20] MEDS: SENNOSIDES 8.6 MG TABLET PO (10:14)
[2020-09-20] MEDS: SODIUM CHLORIDE 0.9% FLUSH 10 ML IV ×2 (10:14→21:07)
[2020-09-20] MEDS: MULTIVITAMIN 1 TABLET 1 TAB PO (10:14)
[2020-09-20] MEDS: CITALOPRAM 10 MG TABLET PO (10:14)
--- NOTE | 2020-09-20 10:55 | OT.IP.TRT ---
Current Diagnoses Alcohol dependence with withdrawal, unspecified (09/13/20) Alcohol induced acute pancreatitis without necrosis or infection (09/13/20) Occupational Therapy Treatment Note M2 OT-IP Current Condition Start: 09/16/20 13:09 Freq: Status: Active Protocol: Document 09/16/20 13:10 CGR (Rec: 09/16/20 13:25 CGR [id number]) Occupational Therapy Current Condition Current Condition Evaluation Date 09/16/20 Treatment Diagnosis Alcoholic pancreatitis, hepatitis with cirrhosis. Diagnosis Onset Date 09/13/20 M3 OT- IP Subjective and Pain Start: 09/16/20 13:09 Freq: Status: Active Protocol: Document 09/20/20 11:53 RM (Rec: 09/20/20 12:00 RM [id number]) OT- Subjective Occupational Therapy Visit Type Type Treatment Note Visit Start Time 10:55 Visit Stop Time 11:40 Total Visit Minutes 45 Occupational Therapy Visit Comments Patient Comments I've been feeling a little disoriented since I've been in here. Patient/Caregiver Goals Take a shower OT Pain Assessment Pain When Pain Assessed During Mobility Pain Present Pain Present Denied Pain M4 OT- IP ADL's Start: 09/16/20 13:09 Freq: Status: Active Protocol: Document 09/20/20 11:53 RM (Rec: 09/20/20 12:00 RM [id number]) OT ADL-Grooming General Evaluation Grooming Ability Standby Assistance Areas Needing Assistance Retrieving/Set-up of Grooming Items Comments OT Grooming Comments Able to comb hair after s/u assist OT ADL-Dressing General Eval Upper Body Dressing Ability Standby Assistance Lower Body Dressing Ability Minimal Assistance Areas Needing Assistance Retrieving/Set-up of Clothing, Socks Comments OT Dressing Comments Assist to doff socks in shower , otherwise able to don shirt, brief, pants, and slippers after s/u assist OT ADL-Bathing Bathing Type Bathing Type Shower General Evaluation Bathing Ability Standby Assistance Areas Needing Assistance Retrieving/Setting Up Items Devices Bathing Equipment Hand Held Shower Sprayer,Grab Bars Comments OT Bathing Comments Tolerated standing for shower x20min, some shakiness but otherwise feeling well M5 OT- IP IADL's Start: 09/16/20 13:09 Freq: Status: Active Protocol: Document 09/16/20 13:10 CGR (Rec: 09/16/20 13:25 CGR [id number]) OT-Instrumental Activities of Daily Living Deficits IADL Deficits Identified Deficits Home Safety Awareness Awareness of Need for Assistance at Home Decreased Awareness Ability to Problem Solve Emergency Unable to Problem Solve Situations M6 OT- IP Functional Cognition Start: 09/16/20 13:09 Freq: Status: Active Protocol: Document 09/20/20 11:53 RM (Rec: 09/20/20 12:00 RM [id number]) Cognitive Factors Limiting Selfcare Function Cognitive Ability Level of Alertness Alert Attention Span Ability Capable of Sustained Attention M7 OT- IP Mobility and Balance Start: 09/16/20 13:09 Freq: Status: Active Protocol: Document 09/20/20 11:53 RM (Rec: 09/20/20 12:00 RM [id number]) OT-Transfer Assessment Sit to and From Stand Sit to and from Stand Standby Assistance Transfers Transfer Ability Standby Assistance Technique Transfer Destination Bed,Shower Stall Devices Transfer Assistive Devices Front Wheeled Walker OT- Gait Assessment Gait Gait Assistance Required: Standby Assistance Assistive Devices Assistive Device Front Wheeled Walker Comments Gait Ability Comments Tolerates ambulation in room for ADLs including accessing the BR. Encourage ongoing use of FWW to decrease fall risk. OT- Balance Assessment Standing Balance and Reactions Dynamic Standing Balance Ability Fair M8 OT- IP Objective Assessments Start: 09/16/20 13:09 Freq: Status: Active Protocol: Document 09/16/20 13:10 CGR (Rec: 09/16/20 13:25 CGR [id number]) OT Gross Range of Motion Upper Extremity Range of Motion Assessment Within Functional Limits OT Strength Upper Extremity Strength Assessment Bilaterally Impaired Hand Lopper Strength Hand Dominance Right Comments Strength Comments 3+/5 OT- Coordination Assessment Upper Extremity Finger to Nose Test Bilateral UE Impaired Finger Tapping Test Bilateral UE Impaired OT-Muscle Tone Assessment Muscle Tone WNL Yes OT Sensation Assessment Edema Edema Absent M9 OT- IP Assessment and Plan Start: 09/16/20 13:09 Freq: Status: Active Protocol: Document 09/20/20 11:53 RM (Rec: 09/20/20 12:00 RM [id number]) OT Summary Assessment and Plan Potential Rehabilitation Potential Good Summary OT Impairments Strength,Balance,Activity Tolerance Progress Towards Goals Progressing Toward Goals Treatment Plan Other Treatment Recommendations and Next Recommend continued ADL Treatment Focus training to increase strength for returning home alone. Discharge Recommendations OT Discharge Recommendations Home Home Equipment Needs FWW, discussed grab bars for bathroom at home
--- NOTE | 2020-09-20 11:05 | PT.IPTN ---
Current Diagnoses Alcohol dependence with withdrawal, unspecified (09/13/20) Alcohol induced acute pancreatitis without necrosis or infection (09/13/20) Physical Therapy Treatment Note M2 PT-IP Current Condition Start: 09/16/20 13:33 Freq: NEEDED Status: Active Protocol: Document 09/16/20 10:47 AB (Rec: 09/16/20 13:43 AB [id number]) Physical Therapy Current Condition Current Condition Evaluation Date 09/16/20 Treatment Diagnosis alcoholic pancreatitis; alcoholic withdrawal; difficulty in walking Onset Date 09/13/20 Precautions Other Precautions falls M3 PT-IP Subjective Start: 09/16/20 13:33 Freq: NEEDED Status: Active Protocol: Document 09/20/20 10:22 LJ (Rec: 09/20/20 11:05 LJ [email or web address]) Subjective Physical Therapy Visit Type Type Treatment Note Visit Start Time 10:22 Visit Stop Time 10:53 Total Visit Minutes 31 Physical Therapy Visit Comments Patient Comments Pt agreeable to working with therapy. M4 PT-IP Mobility and Gait Start: 09/16/20 13:33 Freq: NEEDED Status: Active Protocol: Document 09/20/20 10:22 LJ (Rec: 09/20/20 11:05 LJ [id number]) PT-Bed Mobility Assessment Rolling Type of Rolling Log Rolling,Roll to Left Level of Assist Standby Assistance Supine to Sit Supine to Sit Standby Assistance,Bedrails Scooting Scooting to Edge of Bed Standby Assistance PT-Transfer Assessment Sit to and From Stand Sit to and from Stand Minimal Assistance,1 Person Assistance,Use of Upper Extremities Equipment Transfer Assistive Device Gait Belt,Front Wheeled Walker Orthotic/Prosthetic Devices or Brace: No Transfers Transfer Destination Bed Transfer Technique pt ambulated w/ FWW Transfer Ability Level of Assist Contact Guard Assistance, Minimal Assistance,Use of Upper Extremities Comments Mobility Comments Pt in bed upon arrival. Wanting to take a shower. He logrolled to the left from flat bed position and used the rails to assist with SL to sitting on side of bed. Scooted to edge of bed independently and requested assistance stabilizing FWW while he used handhold on walker to pull himself up. Refused to push off bed to assist himself to standing position. After ambulation, pt returned to sitting on side of bed. Nursing getting pt prepared for shower. Gait Assessment Gait Gait Assistance Required: Standby Assistance,Contact Guard Assist,1 Person Assist Distance (Feet) 400 Able to Maintain Weight Bearing Status Yes During Gait Assistive Devices Assistive Device Gait Belt,Front Wheeled Walker Orthotic/Prosthetic Devices or Brace: No Gait Deviations General Gait Pattern Decreased Stride Length, Decreased Feet Clearance Factors Limiting Gait Function Factors Limiting Gait Function Decreased Activity Tolerance, Decreased Strength,Poor Balance,Poor Safety Awareness Comments Gait Comments Pt ambulated in hallway to [facility] nurse[facility] station, around to stair area, then [place] to his room. Experienced x2 slight LOB when making a left turn and catching his left foot on FWW. Pt had normal pace and appropriately corrected positioning when ceud. No SOB. Stair Climbing Assessment Comments Stair Climbing Comments Pt did not want to attempt stairs this treatment. Will attempt tomorrow M5 PT-IP Objective Assessments Start: 09/16/20 13:33 Freq: NEEDED Status: Active Protocol: Document 09/16/20 10:47 AB (Rec: 09/16/20 13:43 AB [id number]) Orientation Orientation/Cognition Level of Alertness Alert Orientation Name,Month,Year,Place, Situation Safety Awareness Decreased Safety Awareness Comments initially was sleepy but became awake upon sitting Gross Range of Motion Lower Extremity ROM Assessment Within Functional Limits Strength Lower Extremity Strength Assessment Right Impaired Knee 3+/5 Muscle Tone Comments Muscle Tone Comments tremors whole body during standing M6 PT-IP Treatment Start: 09/16/20 13:33 Freq: NEEDED Status: Active Protocol: Document 09/20/20 10:22 ARNAV (Rec: 09/20/20 11:05 LJ [id number]) Physical Therapy Treatment Education Education Provided Safety M7 PT-IP Assessment and Plan Start: 09/16/20 13:33 Freq: NEEDED Status: Active Protocol: Document 09/20/20 10:22 ARNAV (Rec: 09/20/20 11:05 LJ [email or web address]) PT Summary Assessment and Plan Potential Rehabilitation Potential Good Status of Condition at Evaluation Evolving Summary Impairments Pain,ROM,Strength,Balance, Coordination,Sensation,Tone, Cognition,Bed Mobility, Transfers,Gait,Activity Tolerance Assessment Summary Pt improved with mobility and decrease in assistance needs. Ambulated around the entire AC floor with minor LOB and no SOB. He has met all goals other than stairs. Will require stair trial prior to DC. Goals Bed Mobility Goal Minimal Assistance Transfer Goal Minimal Assistance,Front Wheeled Walker Gait Goal Minimal Assistance,Front Wheel Walker Gait Distance 75 Days to Meet Goals 10 Frequency of Treatment Frequency Of Treatment Once a Day Treatment Plan Physical Therapy Treatment Plan Bed Mobility Training,Transfer Training,Gait Training, Therapeutic Exercise,Balance Retraining,Discharge Planning, Hot or Cold Pack,Neuromuscular Re-ed,Coordination Retraining Recommendations To Nursing Amount of Assist Needed 1 Person Assist Discharge Recommendations PT Discharge Recommendations Home with Assistance Transportation Needs at Discharge Wheelchair/Cabulance
[2020-09-20] MEDS: HYDROCODONE/ACET 5/325 TABLET 1 TAB PO ×2 (17:38→21:13)
[2020-09-20] MEDS: LORazepam 2 MG/ML INJ IV (21:07)
[2020-09-21 00:02] VITALS: BP 135/86; PULSE 70; RESP 20; TEMP 36.7; O2SAT 95
[2020-09-21 07:56] VITALS: O2SAT 94
[2020-09-21 08:00] VITALS: BP 148/82; PULSE 77; RESP 20; TEMP 36.9; O2SAT 95
[2020-09-21] MEDS: CITALOPRAM 10 MG TABLET PO (08:13)
[2020-09-21] MEDS: PANTOPRAZOLE 40 MG VIAL IV (08:13)
[2020-09-21] MEDS: FOLIC ACID 1 MG TABLET PO (08:13)
[2020-09-21] MEDS: METOPROLOL IR 25 MG TABLET PO (08:13)
[2020-09-21] MEDS: SENNOSIDES 8.6 MG TABLET PO (08:13)
[2020-09-21] MEDS: MULTIVITAMIN 1 TABLET 1 TAB PO (08:13)
[2020-09-21] MEDS: polyethylene glycoL 3350 17 GM POWD.PACK PO (08:13)
[2020-09-21] MEDS: MAGNESIUM CHLORIDE 64 MG TABLET PO (08:14)
[2020-09-21] MEDS: SODIUM CHLORIDE 0.9% FLUSH 10 ML IV (08:15)
--- NOTE | 2020-09-21 09:28 | PC.NURSE ---
Addendum entered by Steff Murray R.N. 09/21/20 11:56: discharged pt at this time following long discussion and review of post hospital follow up and plan- all resources given to and pt and his sister, ADAM- Original Note: PT ALERT/ORIENTED AND DENIES DISCOMOFRT- REPORTS SLEEPING WELL ALTHOUGH DID HAVE 2 URINAL MISSES DURING THE NOC IN WHICH HE REQUIRED FULL BED LINEN CHANGE- HE DOESN'T RECALL - ENJOYED GOOD BREAKFAST AND IS SHOWERING AT PRESENT- HOPEFUL FOR DISCHARGE THIS DATE
--- NOTE | 2020-09-21 10:43 | PM.DS.1 ---
History of Present Illness History of Present Illness Date Patient Seen: 09/21/20 Time Patient Seen: 10:43 Date of Onset of Symptoms: 09/15/20 Chief complaint: feels terrible Discharge Providers Provider Date of admission: 09/13/20 23:25 Discharge Date: 09/21/20 Primary care physician: Katie Keith MD Consults: 09/14/20 00:22 Consult to Dietitian, Adult Routine Comment: Reason For Exam: alcoholic pancreatitis 09/16/20 07:53 Consult to Occupational Therapy Evaluate & Treat Comment: Physician Instructions: Evaluate and treat Consult to Physical Therapy Evaluate & Treat Comment: Physician Instructions: Evaluate and Treat 09/16/20 16:53 Consult to Palliative Care Routine Comment: Consulting Provider: Tova Barrett Discharge provider: Eugene Quintero MD Summary Hospital Course Discharge Diagnosis: 1. Acute alcohol withdrawal 2. Chronic alcohol abuse. 3. History of depression. 4. Smoker Hospital Course: Patient was admitted to the hospital because of alcohol withdrawal. He was treated with the usual see what procedure and over the course of next several days improved a did not require any sedation last 3 days in the hospital. On discharge he is ambulating with a walker. Did have a right knee problem that is causing some discomfort the getting better. His anticipating having a help from sisters and friends. Further alcohol treatment forthcoming. He will discharge on maintenance meds and follow-up with Dr. Keith in 2 weeks Patient was found to have elevated liver function tests felt to be secondary to hepatic steatosis as per ultrasound. His lipase remain slightly elevated but he is asymptomatic Exam Vital Signs (past 8 hours): - 09/21/20 07:56 09/21/20 08:00 Temperature 98.5 F Pulse Rate 77 Respiratory Rate 20 Blood Pressure 148/82 H Pulse Oximetry 94 95 Fraction of Inspired Oxygen 35 Oxygen Delivery Method Room Air Oxygen Flow Rate 0 Narrative Exam Narrative: Patient actually appear well he had been up and about walking with ambulate rosa with the walker. Abdominal exam totally benign. Lungs are clear heart regular rhythm no murmur gallop. Anion no tremor Objective Labs Result Diagrams: 09/20/20 04:45 09/20/20 04:45 Discharge Assessment & Plan Assessment and Plan Assessment: 1. Acute alcohol withdrawal syndrome improved with the treatment and absence. 2. Chronic alcohol misuse is to be deal with his an outpatient 3. History depression stable. 4. Hepatic steatosis as per ultrasound resulting in slightly elevated liver function test. Discharge Plan Discharge Plan Patient Disposition: Home Health Service Provider Discharge Comment: appt w Dr. Keith 2 weeks Discharge orders & Medications Prescriptions: New nicotine 14 mg/24 hr Patch 24 Hour 14 mg topical DAILY Qty: 14 RF: 0 Continued citalopram [Celexa] 10 mg tablet 10 mg PO DAILY RF: 0 hydroxyzine HCl 10 mg tablet 10 mg DAILY RF: 0 sildenafil 50 mg tablet 50 mg PO DAILY RF: 0 Follow up/Referrals: Katie Keith MD [Primary Care Provider] - Diet/Activity/Treatments Diet: Diet as Tolerated Discharge Data Primary Care Provider: Katie Keith
--- NOTE | 2020-09-21 10:47 | PT.IPTN ---
Current Diagnoses Alcohol dependence with withdrawal, unspecified (09/13/20) Alcohol induced acute pancreatitis without necrosis or infection (09/13/20) Physical Therapy Treatment Note M2 PT-IP Current Condition Start: 09/16/20 13:33 Freq: NEEDED Status: Active Protocol: Document 09/16/20 10:47 AB (Rec: 09/16/20 13:43 AB [id number]) Physical Therapy Current Condition Current Condition Evaluation Date 09/16/20 Treatment Diagnosis alcoholic pancreatitis; alcoholic withdrawal; difficulty in walking Onset Date 09/13/20 Precautions Other Precautions falls M3 PT-IP Subjective Start: 09/16/20 13:33 Freq: NEEDED Status: Active Protocol: Document 09/21/20 10:33 AW (Rec: 09/21/20 10:47 AW [id number]) Subjective Physical Therapy Visit Type Type Treatment Note Visit Start Time 09:45 Visit Stop Time 10:00 Total Visit Minutes 15 Physical Therapy Visit Comments Patient Comments Pt agreeable to working with therapy. Patient Goals Pt hopeful for discharge today M4 PT-IP Mobility and Gait Start: 09/16/20 13:33 Freq: NEEDED Status: Active Protocol: Document 09/21/20 10:33 AW (Rec: 09/21/20 10:47 AW [id number]) PT-Bed Mobility Assessment Scooting Scooting to Edge of Bed Standby Assistance PT-Transfer Assessment Sit to and From Stand Sit to and from Stand Standby Assistance Equipment Transfer Assistive Device Front Wheeled Walker Orthotic/Prosthetic Devices or Brace: No Transfers Transfer Destination Bed Transfer Technique pt ambulated w/ FWW Transfer Ability Level of Assist Standby Assistance,Use of Upper Extremities Comments Mobility Comments Pt was alert and oriented, sitting at EOB getting dressed after a shower upon PT arrival. PT relieved [employer] and pt completed UB dressing IND. Bed cane was elevated on pt's right side. He reached for the bed cane to assist with sit to stand but PT asked if pt could manage without. He scooted forward on the bed and leaned forward without UE support on the bed, completing sit to stand SBA. Pt immediately grasped the FWW and prepared to walk. He donned his face mask and ambulated with FWW in the halls 450 feet total with FWW SBA. Pt became slightly SOB after ~250 feet, requiring cues to take short breaks and to manage pace for energy conservation. Pt briefly trialed ambulation without AD with notable path deviation and unsteadiness. Pt agreed with education that FWW would be safest for him in near future to prevent risk of falls and to increase his independence with gait. Pt returned to the room and transferred back to sitting EOB. BP was assessed at 103/60 HR 77 with extra long cuff. PT informed RN of VS and asked her to re-check as needed. Gait Assessment Gait Gait Assistance Required: Standby Assistance Distance (Feet) 450 Able to Maintain Weight Bearing Status Yes During Gait Assistive Devices Assistive Device Front Wheeled Walker Orthotic/Prosthetic Devices or Brace: No Gait Deviations General Gait Pattern Decreased Stride Length, Decreased Feet Clearance Factors Limiting Gait Function Factors Limiting Gait Function Decreased Activity Tolerance, Decreased Strength, Incoordination,Poor Balance, Poor Safety Awareness Comments Gait Comments See mobility comments for details. Stair Climbing Assessment Evaluation Level of Assist On Stairs Contact Guard Assistance Devices Stair Climbing Assistive Devices Left Railing,Right Railing Technique/Endurance Stair Climbing Direction Ascend and Descend Stair Climbing Technique Step Over Step Number of Steps Climbed 3 Stair Climbing Set # Repetitions (reps) 2 Comments Stair Climbing Comments Pt states his stairs have L railing and he can contact the house on the right side. He plans to have family with him to assist with stairs. PT-Balance Assessment Sitting Balance and Reactions Static Sitting Balance Ability Good Dynamic Sitting Balance Ability Fair Standing Balance and Reactions Static Standing Balance Ability Fair Dynamic Standing Balance Ability Fair Device Used FWW M5 PT-IP Objective Assessments Start: 09/16/20 13:33 Freq: NEEDED Status: Active Protocol: Document 09/16/20 10:47 AB (Rec: 09/16/20 13:43 AB [id number]) Orientation Orientation/Cognition Level of Alertness Alert Orientation Name,Month,Year,Place, Situation Safety Awareness Decreased Safety Awareness Comments initially was sleepy but became awake upon sitting Gross Range of Motion Lower Extremity ROM Assessment Within Functional Limits Strength Lower Extremity Strength Assessment Right Impaired Knee 3+/5 Muscle Tone Comments Muscle Tone Comments tremors whole body during standing M6 PT-IP Treatment Start: 09/16/20 13:33 Freq: NEEDED Status: Active Protocol: Document 09/21/20 10:33 AW (Rec: 09/21/20 10:47 AW [id number]) Physical Therapy Treatment Education Education Provided Safety Other Treatments Other Treatment Performed Provided education on falls prevention, need for FWW, and energy conservation techniques . M7 PT-IP Assessment and Plan Start: 09/16/20 13:33 Freq: NEEDED Status: Active Protocol: Document 09/21/20 10:33 AW (Rec: 09/21/20 10:47 AW [id number]) PT Summary Assessment and Plan Potential Rehabilitation Potential Good Status of Condition at Evaluation Evolving Summary Impairments Pain,ROM,Strength,Balance, Coordination,Sensation,Tone, Cognition,Bed Mobility, Transfers,Gait,Activity Tolerance Progress Towards Goals Progressing Toward Goals Assessment Summary Pt has met and exceeded goals of original plan of care. He shows good insight into his current condition and is willing to use FWW at home to decrease risk of falls. Pt will be safe for discharge to home with family assist once medically cleared. Pt would benefit from home health PT to progress safe mobility and to increase activity tolerance and reduce overall falls risk. Goals Bed Mobility Goal Minimal Assistance Transfer Goal Minimal Assistance,Front Wheeled Walker Gait Goal Minimal Assistance,Front Wheel Walker Gait Distance 75 Days to Meet Goals 5 Frequency of Treatment Frequency Of Treatment Once a Day Treatment Plan Physical Therapy Treatment Plan Bed Mobility Training,Transfer Training,Gait Training, Therapeutic Exercise,Balance Retraining,Discharge Planning, Hot or Cold Pack,Neuromuscular Re-ed,Coordination Retraining Recommendations To Nursing Amount of Assist Needed 1 Person Assist Discharge Recommendations PT Discharge Recommendations Home with Assistance,Home Health Transportation Needs at Discharge Private Vehicle,Wheelchair/ Cabulance
--- NOTE | 2020-09-21 11:01 | CM.DPC ---
Addendum entered by LATOSHA Knott 09/21/20 11:10: ADD: SW faxed signed F2F, MD orders, and d/c summary to [facility] to review and called to alert them to pt discharge today. BF Original Note: DCP Discharge home with HH Per MD, pt is medically stable to d/c home with HH today and signed F2F. Per RN, pt much more alert and eager to d/c home today. Per PT, pt made significant progress yesterday and was able to ambulate the unit with minor LOB and recommending safe d/c home with sister assist and HH. SW met bedside with pt and explained role and pt confirms he is agreeable and eager to d/c home today and he just spoke to his sister Connie who will provide transport home and will be available for assist and will arrive bedside shortly. SW discussed HH again and pt agreeable and SW provided the [facility] brochure and the printed resources for [facility], intensive outpt for ETOH, AA meetings, etc. and pt confirms that he plans to contact [facility] after d/c to enroll in their outpt ETOH program. SW updated RN and sister to be bedside shortly. Plan: Patient to d/c home today via sister Connie's POV and new [facility] to open pt to service and pt to contact [facility] after discharge. No further SW needs at this time. LATOSHA Knott
== END 2020-09-21 11:57 | disposition home health service (06) | DRG 775 ==
LOC: ED 18:14 → AC 23:26 → ICU 09-14 08:09 → AC 09-16 16:23
PROVIDERS: Emergency Medicine; Admitting Provider Student in an Organized Health Care Education/Training Program; Emergency Provider Emergency Medicine; Family Provider Family Medicine; PCP Family Medicine; Referring Provider Emergency Medicine; Visit Provider Family Medicine
DX: F10.231 Alcohol dependence with withdrawal delirium (principal); K85.20 Alcohol induced acute pancreatitis without necrosis or infection; D69.59 Other secondary thrombocytopenia; K70.10 Alcoholic hepatitis without ascites; K76.0 Fatty (change of) liver, not elsewhere classified; I85.10 Secondary esophageal varices without bleeding; Z68.41 Body mass index [BMI] 40.0-44.9, adult; E83.42 Hypomagnesemia; K70.30 Alcoholic cirrhosis of liver without ascites; K70.9 Alcoholic liver disease, unspecified; F10.229 Alcohol dependence with intoxication, unspecified; Y90.8 Blood alcohol level of 240 mg/100 ml or more; E87.6 Hypokalemia; E66.9 Obesity, unspecified; R50.9 Fever, unspecified; B18.2 Chronic viral hepatitis C; G47.30 Sleep apnea, unspecified; M25.461 Effusion, right knee; F32.9 Major depressive disorder, single episode, unspecified; F17.210 Nicotine dependence, cigarettes, uncomplicated; F12.10 Cannabis abuse, uncomplicated; E87.1 Hypo-osmolality and hyponatremia; Z11.59 Encounter for screening for other viral diseases
CPT/HCPCS: 36415; 36592; 70450; 71046; 73560; 74177; 76705; 80048; 80053; 80061; 80076; 80305; 80320; 81003; 82150; 82962; 83605; 83690; 83735; 84100; 84132; 85025; 85379; 85384; 85610; 85730; 87040; 87086; 87635; 87797; 90471; 90656; 93005; 94660; 94762; 96365; 96366; 96375; 97116; 97162; 97167; 97530; 97535; 99233; 99238; 99285; C9113; J1956; J2060; J2270; J2405; J3475; J3480; J7050; Q2038; Q9967

== ENCOUNTER → 2020-10-13 14:32 | Outpatient (CLI) | payer OTHER, MEDICAID, SELFPAY ==
[2020-09-14 01:18] VITALS: BMI 43.4
[2020-09-17 19:20] VITALS: PULSE 78; RESP 17; O2SAT 95
--- NOTE | 2020-10-13 | DI.RAD.S_ITS ---
PROCEDURE: XR KNEE RT 3V INDICATIONS: BILATERAL KNEE PAIN TECHNIQUE: 3 views of the knee were acquired. COMPARISON: [facility], CR, XR KNEE RT 3V, 07/24/2019, 8:50. [facility], CR, XR KNEE RT 1TO2V, 09/17/2020, 13:17. FINDINGS: Bones: No fractures or dislocations. No suspicious bony lesions. Prominent osteophyte formation. Mild narrowing of the medial and lateral joint spaces. Severe narrowing of the lateral patellofemoral joint space with [id number] appearance Soft tissues: Trace joint effusion. No suspicious soft tissue calcifications. IMPRESSION: Severe right knee joint degeneration, most pronounced in the patellofemoral compartment as above. Trace joint effusion. Dictated by: John Syed M.D. on 10/13/2020 at 16:04 Approved by: John Syed M.D. on 10/13/2020 at 16:06
--- NOTE | 2020-10-13 | DI.RAD.S_ITS ---
PROCEDURE: XR KNEE LT 3V INDICATIONS: BILATERAL KNEE PAIN TECHNIQUE: 3 views of the knee were acquired. COMPARISON: [facility], [place], XR KNEE RT 1TO2V, 09/17/2020, 13:17. FINDINGS: Bones: No fracture. Scattered degenerative subchondral sclerosis and spurring. Bulky osteophyte formation. Severe narrowing of the medial joint space. Mild narrowing of the lateral patellofemoral joint space. Soft tissues: No joint effusion. No suspicious soft tissue calcifications. Multiple presumed loose bodies projecting in the posterior joint space. IMPRESSION: Severe left knee joint degeneration as above. Possible loose bodies project in the posterior joint space. Dictated by: John Syed M.D. on 10/13/2020 at 15:57 Approved by: John Syed M.D. on 10/13/2020 at 16:04
== END ==
PROVIDERS: Family Provider Family Medicine; PCP Family Medicine; Referring Provider Family Medicine; Visit Provider Family Medicine
DX: M17.0 Bilateral primary osteoarthritis of knee (principal); M23.42 Loose body in knee, left knee
CPT/HCPCS: 73562

== ENCOUNTER → 2020-12-12 16:19 | Outpatient (ROUT) | payer OTHER, MEDICAID, SELFPAY ==
[2020-09-14 01:18] VITALS: BMI 43.4
[2020-09-17 19:20] VITALS: PULSE 78; RESP 17; O2SAT 95
[2020-12-12 16:31] LABS: INR 1.1 (0.9-1.3); Prothrombin Time 12.5 SECONDS (10.1-12.7)
== END ==
PROVIDERS: Family Provider Family Medicine; PCP Family Medicine; Visit Provider Physician Assistant
DX: B18.2 Chronic viral hepatitis C (principal)
CPT/HCPCS: 85610

== ENCOUNTER → 2021-11-13 16:31 | Outpatient (CLI) | payer OTHER, MEDICAID, SELFPAY ==
[2020-09-14 01:18] VITALS: BMI 43.4
[2020-09-17 19:20] VITALS: PULSE 78; RESP 17; O2SAT 95
[2021-11-13 17:06] LABS: Add Manual Diff / Slide Review NO; Basophils Absolute Auto 0 /uL (0-100); Basophils Percent Auto 0.4 % (0-2); Eosinophils Absolute Auto 100 /uL (0-450); Eosinophils Percent Auto 2.7 % (2-4); Hematocrit 39.7 % (41-53); Hemoglobin 13.5 g/dL (13.5-17.5); Lymphocytes Absolute Auto 1000 /uL (1100-4500); Mean Corpuscular HGB Conc 34.1 % (30-36); Mean Corpuscular Hemoglobin 34.1 PG (26-34); Mean Corpuscular Volume 99.9 fL (80-100); Monocytes Absolute Auto 300 /uL (0-900); Monocytes Percent Auto 7.9 % (3-14); Neutrophils Absolute Auto 2400 /uL (1500-7000); Platelet Count 103 X10^3/uL (150-400); Red Blood Cell Count 3.97 X10^6/uL (4.5-5.9); Red Cell Distribution Width 14.1 % (11.6-14.8); White Blood Cell Count 3.7 X10^3/uL (4.5-11.0)
[2021-11-13 18:04] LABS: Alanine Aminotransferase 24 IU/L (<50); Albumin 3.7 g/dL (3.5-5.0); Albumin Globulin Ratio 1.2 (1.0-2.8); Alkaline Phosphatase 56 U/L (38-126); Aspartate Aminotransferase 35 IU/L (17-59); BUN Creatinine Ratio 15.5 (6-22); Bilirubin Total 0.8 mg/dL (0.2-1.3); Blood Urea Nitrogen 11 mg/dL (9-20); Calcium 8.8 mg/dL (8.4-10.2); Carbon Dioxide 32 mmol/L (22-32); Chloride 105 mmol/L (98-107); Cholesterol 149 mg/dL (140-199); Estimated Glomerular Filt Rate > 60.0 mL/min (>60); Globulin 3.2 g/dL (1.7-4.1); Glucose 90 mg/dL (70-100); HDL Cholesterol 35 mg/dL (40-60); HEMOLYSIS < 15 (0-50); LDL Cholesterol Calculated 104 mg/dL (<100); Potassium 3.8 mmol/L (3.4-5.1); Sodium 140 mmol/L (137-145); Total Protein 6.9 g/dL (6.3-8.2); Triglycerides 52 mg/dL (35-150)
== END ==
PROVIDERS: Family Provider Family Medicine; PCP Family Medicine; Referring Provider Family Medicine; Visit Provider Family Medicine
DX: D69.6 Thrombocytopenia, unspecified (principal); B18.2 Chronic viral hepatitis C
CPT/HCPCS: 36415; 80053; 80061; 84443; 85025

== ENCOUNTER → 2022-01-14 12:01 | Outpatient (ROUT) | payer OTHER, MEDICAID, SELFPAY ==
[2020-09-14 01:18] VITALS: BMI 43.4
[2020-09-17 19:20] VITALS: PULSE 78; RESP 17; O2SAT 95
[2022-01-14 12:10] LABS: Add Manual Diff / Slide Review NO; Basophils Absolute Auto 0 /uL (0-100); Basophils Percent Auto 0.7 % (0-2); Eosinophils Absolute Auto 100 /uL (0-450); Eosinophils Percent Auto 2.6 % (2-4); Hematocrit 40.6 % (41-53); Hemoglobin 14.1 g/dL (13.5-17.5); Lymphocytes Absolute Auto 1300 /uL (1100-4500); Lymphocytes Percent Auto 33.3 % (25-40); Mean Corpuscular HGB Conc 34.7 % (30-36); Mean Corpuscular Hemoglobin 34.2 PG (26-34); Mean Corpuscular Volume 98.6 fL (80-100); Monocytes Absolute Auto 500 /uL (0-900); Monocytes Percent Auto 11.6 % (3-14); Neutrophils Absolute Auto 2100 /uL (1500-7000); Neutrophils Percent Auto 51.8 % (50-75); Platelet Count 120 X10^3/uL (150-400); Red Blood Cell Count 4.12 X10^6/uL (4.5-5.9); Red Cell Distribution Width 13.9 % (11.6-14.8)
[2022-01-14 12:22] LABS: Alanine Aminotransferase 78 IU/L (<50); Albumin 3.9 g/dL (3.5-5.0); Albumin Globulin Ratio 1.3 (1.0-2.8); Alkaline Phosphatase 68 U/L (38-126); Aspartate Aminotransferase 78 IU/L (17-59); BUN Creatinine Ratio 17.9 (6-22); Bilirubin Total 0.9 mg/dL (0.2-1.3); Blood Urea Nitrogen 17 mg/dL (9-20); Calcium 9.2 mg/dL (8.4-10.2); Carbon Dioxide 30 mmol/L (22-32); Chloride 101 mmol/L (98-107); Estimated Glomerular Filt Rate > 60.0 mL/min (>60); Globulin 3.1 g/dL (1.7-4.1); Glucose 90 mg/dL (70-100); HEMOLYSIS < 15 (0-50); Potassium 3.5 mmol/L (3.4-5.1); Sodium 136 mmol/L (137-145)
== END ==
PROVIDERS: Family Provider Family Medicine; PCP Family Medicine; Visit Provider Family Medicine
DX: D69.6 Thrombocytopenia, unspecified (principal); B18.2 Chronic viral hepatitis C
CPT/HCPCS: 80053; 85025